=== PATIENT | female | born 1975 | race Caucasian/White ===

== ENCOUNTER → 2018-12-08 16:54 | Outpatient (CLI) | payer OTHER, SELFPAY ==
[2018-12-08 19:56] LABS: Alanine Aminotransferase 24 U/L (12-78); Albumin Level 3.8 gm/dL (3.4-5.0); Alkaline Phosphatase 94 U/L (46-116); Anion Gap 17.3 mEq/L (5-15); Aspartate Amino Transferase 6 U/L (15-37); Bilirubin,Total 0.1 mg/dL (0.2-1.0); Blood Urea Nitrogen 13 mg/dL (7-18); Calcium 8.7 mg/dL (8.5-10.1); Carbon Dioxide 20 mmol/L (21.0-32.0); Chloride 107 mmol/L (98-107); Creatinine,Serum 1.03 mg/dL (0.55-1.02); Estimated Glomerular Filt Rate 59 ml/min (>60); GFR (African American) 71 ML/MIN (>60); Globulin 3.8 gm/dl (1.3-3.2); Glucose 85 mg/dL (74-106); Potassium 4.3 mmoL/L (3.5-5.1); Sodium 140 mmol/L (136-145); Thyroid Stimulating Hormone 0.75 uIU/ml (0.358-3.740); Total Protein,Serum 7.6 gm/dL (6.4-8.2)
== END ==
PROVIDERS: Visit Provider Internal Medicine Adolescent Medicine
DX: E03.9 Hypothyroidism, unspecified (principal)
CPT/HCPCS: 36415; 80053; 84443

== ENCOUNTER → 2018-12-30 15:48 | Outpatient (CLI) | payer OTHER, SELFPAY ==
--- NOTE | 2018-12-30 15:54 | XR_ITS ---
XR hip LT 2-3V w/pelvis HISTORY: ITS.REASON: CELLULITIS,LEFT HIP PAIN,CUTANEOUS ABCESS OF BUTTOCK ORDERING PHYSICIAN: Soha Hernandez PATIENT AGE: 43 years COMPARISON: None FINDINGS: No fracture or dislocation is evident. There is a small area of heterogeneous decreased density along the left hip lateral to the greater trochanter and may be due to the area of abscess within the soft tissues. No bony erosive changes evident at this region. There are mild osteoarthritic changes of the hips and there is sclerosis in the supra-acetabular region on both sides which may be due to bone islands. Metallic density noted over the perineum consistent with body piercing artifact. IMPRESSION: Mottled gas density overlying the soft tissues of the left hip consistent with an abscess/gas-forming infection versus an area of ulceration. CT with contrast may be of further value.
== END ==
PROVIDERS: PCP Internal Medicine Adolescent Medicine; Visit Provider Nurse Practitioner Family
DX: L03.317 Cellulitis of buttock (principal); L02.31 Cutaneous abscess of buttock; M25.552 Pain in left hip
CPT/HCPCS: 73502

== ENCOUNTER → 2019-01-03 15:05 | Outpatient (CLI) | payer OTHER, SELFPAY ==
--- NOTE | 2019-01-03 15:09 | CT_ITS ---
CT pelvis wo con HISTORY: Left hip abscess pain extending to the hip ITS.REASON: CELLULITIS OF LT. HIP ORDERING PHYSICIAN: Hayden Waldron MD PATIENT AGE: 43 years COMPARISON: 12/30/2018 left hip radiograph Previous CT abdomen and pelvis September 2014 Technique: No IV contrast utilized. Helical CT scanning performed through the pelvis with axial, coronal and sagittal reconstruction performed. Additional 3-D volume rendering reconstruction. All CT scans at the facility use one or more dose reduction, viz: automated exposure control, ma/kV adjustment per patient size (including targeted exams where dose is matched to indication, i.e. head), or iterative reconstruction technique. FINDINGS: Soft tissues. There is a focal skin defect which extends into the subcutaneous tissues. It measures 15 mm deep, 15 mm wide and is located at the lateral aspect of the left buttocks...- Posterior lateral to the left hip.. This appears to be well contained focus with only some scant inflammation surrounding this ulcer or defect. No fluid is seen here. The findings are compatible with a healing abscess. There is a generous vein which is seen tracking from along this resolving abscess or defect at towards the gluteus muscle. Likely reflecting the more increased flow however there is no associated deep fluid collections or other findings at the left gluteus muscle. Left gluteus muscle appears normal on this noncontrast CT Left hip Nearly 8 cm deep to this skin defect/ulcer the LEFT HIP itself appears intact and normal: . no joint effusion nor significant joint findings at the left hip on this CT survey. The left femoral head & acetabulum appear satisfactory. The femoral head is a normal density. The trochanteric region and femoral neck unremarkable bilaterally. Bony pelvis The previous CT from 2013 showed a sclerotic bone islands along the inner aspect of the left iliac bone. These are again seen and appear stable if not recommend enlarged x 1 mm. Appear to be benign. A similar sclerotic focal bone island is seen at the medial aspect of the right iliac bone towards acetabulum.-No significant change since prior 2014 study here either. . Soft tissues the pelvis, the bladder appears fairly empty and satisfactory. Numerous phleboliths are evident. The right ovary is identified measuring up to 3.2 cm and likely containing a least 2 cm cyst. Large cyst is seen on a previous 2014 study. It is since regressed.. Generous, prominent stool is seen at the right colon, flexure and transverse colon. Minimal stool at the left colon. . IMPRESSION:...... 1. A 1.5 cm skin & subcutaneous defect is seen at the lateral left buttock. Only minimal Scant inflammation surrounding this area persists. . No significant focal fluid collections here or deep to this area. .. Findings consistent with resolving small area of likely drained abscess with no associated findings deep to this area... 2. The subcutaneous fat deep to this skin/soft tissue defect area, otherwise appear appears normal. The left Left gluteus muscle deep to this area appears satisfactory/normal. Left hip , as well as right hip appear satisfactory/. Osseous pelvis is unchanged since 2014 study, no significant findings again noting benign bone islands at medial aspect of the iliac bone bilaterally 3. Incidental observation: .... Prominent grade 1 spondylolisthesis of L5 on S1,. Bilateral Pars defects at L5 along with prominent degenerative facet changes L5/S1. ... 2 x 2.3 cm right ovarian cyst ... Increased/Prominent stool right colon- transverse colon noted .
== END ==
PROVIDERS: PCP Internal Medicine Adolescent Medicine; Visit Provider Internal Medicine Adolescent Medicine
DX: L03.116 Cellulitis of left lower limb (principal)
CPT/HCPCS: 72192

== ENCOUNTER → 2019-10-11 12:30 | Outpatient (CLI) | payer SELFPAY ==
[2019-10-11 13:33] LABS: Basophils # 0.1 K/mm3 (0-0.2); Basophils % 0.6 % (0.1-2.0); Eosinophils # 0.4 K/mm3 (0.0-0.4); Eosinophils % 2.8 % (0.1-12.0); Hematocrit 38.8 % (37.0-47.0); Hemoglobin 11.8 g/dL (12.2-16.2); Lymphocytes # 2.5 K/mm3 (0.7-4.5); Lymphocytes % 18.7 % (10-50); Mean Corpuscular HGB Conc 30.5 g/dL (31.8-35.4); Mean Corpuscular Hemoglobin 28.3 pg (27.0-31.2); Mean Corpuscular Volume 92.8 fl (81-99); Mean Platelet Volume 7.1 fl (7.4-10.4); Monocytes # 0.7 K/mm3 (0.1-1.0); Monocytes % 5.1 % (1.7-9.3); Neutrophils # 9.9 K/mm3 (1.8-7.8); Neutrophils % 72.8 % (37.0-80.0); Platelet Count 313 K/mm3 (142-424); Red Blood Count 4.18 M/mm3 (4.20-5.40); Red Cell Distribution Width 14.1 % (11.5-17.5); White Blood Count 13.6 K/mm3 (4.8-10.8)
[2019-10-11 14:19] LABS: Alanine Aminotransferase 14 U/L (12-78); Albumin Level 3.1 gm/dL (3.4-5.0); Alkaline Phosphatase 86 U/L (46-116); Anion Gap 13.4 mEq/L (5-15); Aspartate Amino Transferase 7 U/L (15-37); Blood Urea Nitrogen 14 mg/dL (7-18); Calcium 8.5 mg/dL (8.5-10.1); Carbon Dioxide 25 mmol/L (21.0-32.0); Chloride 107 mmol/L (98-107); Creatinine,Serum 0.94 mg/dL (0.55-1.02); Estimated Glomerular Filt Rate 66 ml/min (>60); GFR (African American) 79 ML/MIN (>60); Globulin 3.1 gm/dl (1.3-3.2); Glucose 82 mg/dL (74-106); Potassium 4.4 mmoL/L (3.5-5.1); Sodium 141 mmol/L (136-145); Thyroid Stimulating Hormone 0.98 uIU/ml (0.358-3.740); Total Protein,Serum 6.2 gm/dL (6.4-8.2)
[2019-10-11 15:10] LABS: Bilirubin,Total < 0.0 mg/dL (0.2-1.0)
== END ==
PROVIDERS: Visit Provider Internal Medicine Adolescent Medicine
DX: R63.5 Abnormal weight gain (principal)
CPT/HCPCS: 36415; 80053; 84443; 85025

== ENCOUNTER → 2019-10-28 09:16 | Outpatient (CLI) | payer SELFPAY ==
--- NOTE | 2019-10-28 09:20 | US_ITS ---
PROCEDURE: US ABDOMEN LIMITED CLINICAL INDICATION: ABD DISCOMFORT COMPARISON: RUQ US RUQ-(ABD LTD)1ORGAN/QUAD/FU from 10/09/2014 FINDINGS: PANCREAS: There is poor delineation of the pancreatic tail. CT is recommended to better evaluate pancreatic tail if felt to be clinically indicated. No obvious mass or abnormal fluid collection. No ductal dilatation LIVER: There is homogeneous echotexture without a discrete lesion or biliary ductal dilatation. RIGHT KIDNEY: Unremarkable. Normal size and echogenicity. No hydronephrosis GALLBLADDER: No gallstones, gallbladder wall thickening, pericholecystic fluid, or biliary dilatation. A trace amount of sludge versus reverberation artifact is present IMPRESSION: No gallstones or ancillary findings of acute cholecystitis. Possible trace amount of sludge. Dictated by: Dagoberto Campa 10/28/2019 10:36 Electronically signed by Dagoberto Campa in [facility] 10/28/2019 10:36
== END ==
PROVIDERS: PCP Internal Medicine Adolescent Medicine; Visit Provider Internal Medicine Adolescent Medicine
DX: R10.9 Unspecified abdominal pain (principal); R14.0 Abdominal distension (gaseous)
CPT/HCPCS: 76705

== ENCOUNTER → 2019-12-13 12:52 | Outpatient (CLI) | payer OTHER, SELFPAY ==
--- NOTE | 2019-12-13 12:56 | XR_ITS ---
PROCEDURE: XR CHEST 2V CLINICAL HISTORY: SOB COMPARISON: CXR1VP XR chest portable from 09/20/2018 XR CHEST 2V from 12/09/2019 FINDINGS: The cardiomediastinal silhouette and pulmonary vascularity are within normal limits. The lungs are clear without infiltrates, suspicious nodules, or pleural effusions. There is hyperinflation. No lobar consolidation or collapse is evident. Lungs are clear of acute infiltrate. Bilateral nipple ring artifact. No acute bony findings. IMPRESSION: No change with no acute finding Dictated by: Sadiq Holt MD 12/13/2019 13:33 Electronically signed by Sadiq Holt MD in [facility] 12/13/2019 13:33
[2019-12-13 13:27] LABS: Adenovirus,PCR Not Detected (NotDetected); Bordetella Pertussis Not Detected (NotDetected); Chlamydophila Pneumoniae, PCR Not Detected (NotDetected); Coronavirus 229E Not Detected (NotDetected); Coronavirus NL63 Not Detected (NotDetected); Coronavirus OC43 Not Detected (NotDetected); Coronovirus HKU1,PCR Not Detected (NotDetected); Human Metapneumovirus Not Detected (NotDetected); Influenza A, PCR Not Detected (NotDetected); Influenza AH1, 2009 Not Detected (NotDetected); Influenza AH1, PCR Not Detected (NotDetected); Influenza AH3,PCR Not Detected (NotDetected); Influenza B, PCR Not Detected (NotDetected); Mycoplasma Pneumoniae, PCR Not Detected (NotDetected); Parainfluenza 1, PCR Not Detected (NotDetected); Parainfluenza 2, PCR Not Detected (NotDetected); Parainfluenza 3, PCR Not Detected (NotDetected); Parainfluenza 4, PCR Not Detected (NotDetected); Respiratory Syncytial Virus Not Detected (NotDetected); Rhinovirus/Enterovirus Not Detected (NotDetected)
== END ==
PROVIDERS: PCP Internal Medicine Adolescent Medicine; Visit Provider Internal Medicine Adolescent Medicine
DX: R06.02 Shortness of breath (principal); J45.909 Unspecified asthma, uncomplicated
CPT/HCPCS: 71046; 87486; 87581; 87633; 87798

== ENCOUNTER → 2019-12-23 10:32 | Observation (INO) ==
[2019-12-22 16:49] LABS: Basophils # 0.1 K/mm3 (0-0.2); Basophils % 0.5 % (0.1-2.0); Eosinophils # 0.5 K/mm3 (0.0-0.4); Eosinophils % 2.4 % (0.1-12.0); Hemoglobin 12.3 g/dL (12.2-16.2); Lymphocytes % 21.2 % (10-50); Mean Corpuscular HGB Conc 31.5 g/dL (31.8-35.4); Mean Corpuscular Volume 89.1 fl (81-99); Mean Platelet Volume 7.4 fl (7.4-10.4); Monocytes # 0.7 K/mm3 (0.1-1.0); Monocytes % 3.9 % (1.7-9.3); Neutrophils # 13.5 K/mm3 (1.8-7.8); Platelet Count 343 K/mm3 (142-424); Red Blood Count 4.38 M/mm3 (4.20-5.40); Red Cell Distribution Width 13.6 % (11.5-17.5); White Blood Count 18.7 K/mm3 (4.8-10.8)
[2019-12-22 16:55] LABS: Chloride 106 mmol/L (98-107); Sodium 139 mmol/L (136-145)
[2019-12-22 16:57] LABS: Alanine Aminotransferase 19 U/L (12-78); Alkaline Phosphatase 68 U/L (38-126); Anion Gap 10.6 mEq/L (5-15); Aspartate Amino Transferase 18 U/L (14-36); Blood Urea Nitrogen 19 mg/dl (7-17); Carbon Dioxide 26 mmol/L (22.0-30.0)
[2019-12-22 16:58] LABS: Albumin Level 3.6 g/dl (3.5-5.0); Albumin/Globulin Ratio 1.3 (1.1-1.8); Calcium 9.1 mg/dl (8.4-10.2); Globulin 2.8 g/dL (1.3-3.2); Glucose 101 mg/dl (74-100); Total Protein,Serum 6.4 g/dl (6.3-8.2)
[2019-12-22 16:59] LABS: Bilirubin,Total < 0.1 mg/dl (0.2-1.3)
[2019-12-22 17:21] LABS: Eosinophils % 5 % (0-3); Lymphocytes % 26 % (10-50); Monocytes % 3 % (2-9); Neutrophils % 66 % (42-76); RBC Morphology Normal; Total Cells Counted 100
--- NOTE | 2019-12-22 18:17 | History & Physical Report ---
*Admission Date: 12/22/19 *Chief complaint: SOA *History of present illness: 44 yo F who presented to the ER 2 weeks ago with initial onset of Sx of cough, SOA, horase voice. No Fevers, N/V/D, Syncope, body aches. Has been seen in our office 9 days ago with repeat visit to ED last weekend. During visit to the office today she continues to have shortness of breath, wheeze, tachycardia and tachypnea. Given failure of outpatient therapy for suspected asthma exacerbation, will pursue admission for observation and more aggressive inpatient treatment. Will monitor overnight with nebulizers. Pursue imaging. And pursue labs. At this time she continues to deny fever, chest pain, syncope. Does complain of some pain in her back from coughing. Reports at home she has been using Albuterol Nebs and inalers with no benefit. Gets short of breath with exertion and unable to participate in activities, nece ssitating help with activities as simple as dressing. Cough not productive. staying hydrated. Wt down 4 lbs in the past month. Does continue to smoke occasionally, a few cigarettes a day. [facility] History I have reviewed the patient's past medical history: Yes Medical History: Reports:: Anxiety, Atrial Fibrillation, Depression, Migraine Denies:: Cancer, Diabetes Mellitus Type 1, Diabetes Mellitus Type 2, MRSA, Seizures *Have you ever received a pneumonia vaccine?: Yes *Have you received a flu vaccine this season?: Yes Other Medical History: Reports: Hypothyroidism. Denies: Blood Transfusion Reaction Other Surgeries: Yes: No Previous Surgery, , Hysterectomy-Partial, Other Amputation: No Fractures: No - *Social History Educational Level: Completed High School Smoking Status: Current every day smoker Tobacco Type: cigarettes # Packs/Day (cigarettes): 1 Alcohol Intake: never Substance Use Type: denies use *Occupational Status:: employed Housing: house Household Members: children *Travel in the last 8 weeks: None - Psychiatric History Pschychiatric History:: Reports:: Anxiety, Depression Family Hx:: Asthma, Cancer, Diabetes, Heart Attack, Hyperlipidemia, Hypertension Review of Systems - Review of Systems Review of systems:: pertinent systems reviewed and negative unless documented below (14 point review of systems performed, pertinent positives and negatives as per HPI) Meds Home Medications Medication Instructions Recorded Confirmed Type topiramate 100 mg tablet 100 mg PO BID 11/10/17 12/22/19 History propranolol 20 mg tablet 20 mg PO BID 01/04/18 12/22/19 History hydrOXYzine pamoate [Vistaril 25mg 25 mg PO NEEDED PRN 09/15/18 12/22/19 History capsule] amitriptyline 100 mg tablet 100 mg PO DAILY 08/12/19 12/22/19 History Promethazine/Dextromethorphan 5 ml PO Q6HP PRN #240 syrup 12/17/19 12/22/19 Rx [Promethazine-Dm Syrup] Amoxicillin/Potassium Clav 1 tab PO Q12H 12/22/19 12/22/19 History [Augmentin 875-125 Tablet] Azithromycin [Zithromax 250mg 250 mg PO DAILY 12/22/19 12/22/19 History tab] Fluoxetine HCl 40 mg PO DAILY 12/22/19 12/22/19 History Fluoxetine HCl [Prozac] 40 mg PO DAILY 12/22/19 12/22/19 History Levothyroxine Sodium 50 mcg PO DAILY 12/22/19 12/22/19 History [Levothyroxine 50mcg (0.05mg) Tab] Allergies Allergy/AdvReac Type Severity Reaction Status Date / Time codeine [CODEINE] Allergy Mild Verified 12/09/19 22:57 latex Allergy Verified 12/09/19 22:57 sumatriptan [From Imitrex] Allergy body feels Verified 12/09/19 22:57 like its on fire Exam Vital signs and Labs for Last 24 Hours: Temp Pulse Resp BP Pulse Ox 97.5 F L 75 22 116/73 96 12/22/19 16:16 12/22/19 17:54 12/22/19 16:16 12/22/19 16:16 12/22/19 16:16 Laboratory Results - last 24 hr 12/22/19 16:35: WBC 18.7 H, RBC 4.38, Hgb 12.3, Hct 39.0, MCV 89.1, MCH 28.1, MCHC 31.5 L, RDW 13.6, Plt Count 343, MPV 7.4, Neut % (Auto) 72.0, Lymph % (Auto) 21.2, [place] % (Auto) 3.9, Eos % (Auto) 2.4, Baso % (Auto) 0.5, Neut # (Auto) 13.5 H, Lymph # (Auto) 4.0, [place] # (Auto) 0.7, Eos # (Auto) 0.5 H, Baso # (Auto) 0.1, Total Counted 100, Neutrophils % (Manual) 66, Lymphocytes % (Manual) 26, Monocytes % (Manual) 3, Eosinophils % (Manual) 5 H, Platelet Estimate Normal, RBC Morphology Normal 12/22/19 16:35: Sodium 139, Potassium 3.6, Chloride 106, Carbon Dioxide 26, Anion Gap 10.6, BUN 19 H, Creatinine 1.00, Estimated Creat Clear 103, Estimated GFR 61, Est GFR ( Amer) 74, Glucose 101 H, Calcium 9.1, Magnesium 1.7, Total Bilirubin < 0.1 L, AST 18, ALT 19, Alkaline Phosphatase 68, Total Protein 6.4, Albumin 3.6, Globulin 2.8, Albumin/Globulin Ratio 1.3 I & O for Last 24 hours: Intake & Output 12/19/19 12/20/19 12/21/19 12/22/19 23:59 23:59 23:59 23:59 Intake Total 600 / 600 Balance 600 / 600 Weight 88.932 kg - *Routine HEENT Exam Head: Present: normocephalic Eye: Present: EOMI, PERRL ENT: Present: mucous membranes moist - *Routine Neck Exam Present: supple. Absent: lymphadenopathy - *Routine Respiratory Exam Present: accessory muscle use, prolonged expiratory phase, respiratory distress (Mild), wheezes. Absent: rhonchi, crackles - *Routine Cardiovascular Exam Present: Normal S1, Normal S2, tachycardia. Absent: murmur - *Routine Abdominal Exam Present: soft, normoactive bowel sounds. Absent: tenderness - *Routine Extremities Exam Absent: cyanosis, clubbing, edema - *Routine Skin Exam Present: warm. Absent: rash - *Routine Neurological Exam Present: alert, oriented X3 Assessment and Plan (1) Hypomagnesemia Current visit: Yes Status: Acute Category: Medical Code(s): E83.42 - Hypomagnesemia Replete as necessary. Repeat with morning labs (2) Migraines Current visit: Yes Status: Chronic Category: Medical Code(s): G43.909 - Migraine, unspecified, not intractable, without status migrainosus Continue home medications (3) Asthma exacerbation Current visit: Yes Status: Acute Qualifiers: Asthma severity: moderate Category: Medical Code(s): J45.901 - Unspecified asthma with (acute) exacerbation Tachypneic and tachycardic. Not hypoxic however. Patient not requiring supplemental oxygen however she has failed extensive outpatient treatment with nebulizers, inhalers, antibiotics, steroids. Will pursue more aggressive inpatient therapy. At this time we will also obtain CT to assess for any infectious etiology. Patient has had a comprehensive respiratory panel, novel coronavirus testing, chest x-ray, and labs with no clear etiology. - Nebulizer scheduled every 6, every 2 Xopenex for breakthrough dyspnea - IV steroids - Oxygen if needed for goal sats greater than 92% (4) Eosinophilia Current visit: Yes Status: Acute Category: Medical Code(s): D72.1 - Eosinophilia Suspect allergic on her labs. I have concern this is underlying her current condition. Initiating steroids and Singulair. Will monitor for improvement during admission. Anticipate prolonged taper over the next several weeks. (5) Class 1 obesity Current visit: Yes Status: Acute Category: Medical Code(s): E66.9 - Obesity, unspecified Complicates all aspects of her care (6) Tobacco use disorder Current visit: Yes Status: Chronic Category: Medical Code(s): F17.200 - Nicotine dependence, unspecified, uncomplicated Complicates her care. Have discussed extensively smoking cessation. Had discussion for greater than 5 minutes during exam today about impact smoking has on her current condition. Patient is pre-contemplative about cessation.
[2019-12-23 06:52] LABS: Basophils % 0.1 % (0.1-2.0); Eosinophils % 0.1 % (0.1-12.0); Hematocrit 43.4 % (37.0-47.0); Hemoglobin 13.5 g/dL (12.2-16.2); Lymphocytes # 1.2 K/mm3 (0.7-4.5); Lymphocytes % 6.6 % (10-50); Mean Corpuscular HGB Conc 31.1 g/dL (31.8-35.4); Mean Corpuscular Volume 90.7 fl (81-99); Mean Platelet Volume 6.9 fl (7.4-10.4); Monocytes # 0.2 K/mm3 (0.1-1.0); Monocytes % 1.2 % (1.7-9.3); Neutrophils # 16.8 K/mm3 (1.8-7.8); Platelet Count 359 K/mm3 (142-424); Red Blood Count 4.79 M/mm3 (4.20-5.40); Red Cell Distribution Width 13.5 % (11.5-17.5); White Blood Count 18.3 K/mm3 (4.8-10.8)
[2019-12-23 07:24] LABS: Anion Gap 13.5 mEq/L (5-15); Calcium 9.2 mg/dl (8.4-10.2)
--- NOTE | 2019-12-23 07:40 | Pharmacy Consult Notes ---
[facility] Pharmacy VTE Monitoring - Patient Demographics Admission date: 12/22/19 Report Date: 12/23/19 Time: 07:39 Allergies/Adverse Reactions: Patient Allergies codeine [CODEINE] Allergy (Mild, Verified 12/09/19 22:57) latex Allergy (Verified 12/09/19 22:57) sumatriptan [From Imitrex] Allergy (Verified 12/09/19 22:57) body feels like its on fire Height: 1.7 m Weight: 88.564 kg Patient Problems: Current Active Problems Hypomagnesemia (Acute) Migraines (Chronic) Asthma exacerbation (Acute) Eosinophilia (Acute) Class 1 obesity (Acute) Tobacco use disorder (Chronic) - VTE Risk Labs: VTE Related Lab Results Hgb 13.5 g/dL (12.2-16.2) 12/23/19 06:10 Hct 43.4 % (37.0-47.0) 12/23/19 06:10 Plt Count 359 K/mm3 (142-424) 12/23/19 06:10 BUN 13 mg/dl (7-17) D 12/23/19 06:10 Creatinine 0.80 mg/dl (0.52-1.04) 12/23/19 06:10 Estimated Creat Clear 128 mL/min (50-200) 12/23/19 06:10 VTE Score: 2 - Prophylaxis VTE Prophylaxis Ordered?: Yes Types of VTE Prophylaxis: TEDS Knee High Location of Applied Device: Bilateral Lower Extremeties - VTE Diagnosis Confirmed Treatment or plan recommended: Continue Current Treatment
--- NOTE | 2019-12-23 07:54 | Electrocardiograph Report ---
APPROVED REPORT Exam: Resting ECG HR:79 bpm ECG Measurements Heart Rate 79 AXES MA 154 P 34 QRSd 84 QRS 61 QT 394 T55 QTc 451 <Conclusion> Normal sinus rhythm Possible Left atrial enlargement Late R-wave progression Abnormal ECG Electronically signed by : Hayden Waldron, 12/23/2019 07:53:42
--- NOTE | 2019-12-23 08:33 | Discharge Summary ---
General - General Admission date:: 12/22/19 Discharge date: 12/23/19 HPI HPI: 44 yo F who presented to the ER 2 weeks ago with initial onset of Sx of cough, SOA, horase voice. No Fevers, N/V/D, Syncope, body aches. Has been seen in our office 9 days ago with repeat visit to ED last weekend. During visit to the office today she continues to have shortness of breath, wheeze, tachycardia and tachypnea. Given failure of outpatient therapy for suspected asthma exacerbation, will pursue admission for observation and more aggressive inpatient treatment. Will monitor overnight with nebulizers. Pursue imaging. And pursue labs. At this time she continues to deny fever, chest pain, syncope. Does complain of some pain in her back from coughing. Reports at home she has been using Albuterol Nebs and inalers with no benefit. Gets short of breath with exertion and unable to participate in activities, necessitating help with activities as simple as dressing. Cough not productive. staying hydrated. Wt down 4 lbs in the past month. Does continue to smoke occasionally, a few cigarettes a day. Hospital Course Hospital Course: 44-year-old female admitted for Sirs criteria and suspected asthma exacerbation. Monitored overnight with improvement in her vitals. Remains afebrile. Not requiring oxygen. Responding well to nebulizers with DuoNebs. Initiated on IV steroids. Imaging performed with unremarkable CT showing no findings of pneumonia or pulmonary infection. Suspect elevated white count is due to recurrent steroids and stress over the past 2 weeks. Interestingly on presentation her initial labs had an elevated eosinophil count. While specific etiology is unclear, differential diagnosis consists of allergy induced asthma, ABPA, eosinophilia, or prolonged symptoms from acute viral illness secondary to her continued tobacco use. As she is not requiring oxygen, remains afebrile, is hemodynamically stable, no justification to continue to keep her admitted. We will discharge her home on duo nebs, a prolonged steroid taper, medications to treat thrush and potential fungal secondary infections such as vaginal yeast infections, and recommend following up with ENT due to concern for upper airway etiology of wheeze on exam. Denies chest pain, nausea, vomiting, syncope. Shortness of breath somewhat improved with inhalers/nebulizers. Given sample of Stiolto at discharge to util ize daily. Close follow-up next week in clinic. Medically stable for discharge home with further management in the outpatient setting Objective Vital signs: Temp Pulse Resp BP Pulse Ox 98.1 F 81 20 133/75 98 12/23/19 07:40 12/23/19 07:40 12/23/19 07:40 12/23/19 07:40 12/23/19 07:40 Narrative: General: No acute distress on room air. - *Routine HEENT Exam Head: Present: normocephalic Eye: Present: EOMI, PERRL ENT: Present: mucous membranes moist - *Routine Neck Exam Present: supple. Absent: lymphadenopathy - *Routine Respiratory Exam Present: Improvement in respiratory symptoms, no tripoding or accessory muscle use, minimal expiratory wheeze in the bases bilaterally and posterior lung mustafa, transmitted upper airway wheeze best heard at cheeks. Absent: rhonchi, crackles - *Routine Cardiovascular Exam Present: Normal S1, Normal S2, regular rate and rhythm absent: murmur - *Routine Abdominal Exam Present: soft, normoactive bowel sounds. Absent: tenderness - *Routine Extremities Exam Absent: cyanosis, clubbing, edema - *Routine Skin Exam Present: warm. Absent: rash - *Routine Neurological Exam Present: alert, oriented X3 Results Labs on day of discharge: Labs from last 24 hours 12/23/19 12/23/19 12/22/19 06:10 06:10 16:35 WBC 18.3 H RBC 4.79 Hgb 13.5 Hct 43.4 MCV 90.7 MCH 28.2 MCHC 31.1 L RDW 13.5 Plt Count 359 MPV 6.9 L Neut % (Auto) 92.0 H Lymph % (Auto) 6.6 L [place] % (Auto) 1.2 L Eos % (Auto) 0.1 Baso % (Auto) 0.1 Neut # (Auto) 16.8 H Lymph # (Auto) 1.2 [place] # (Auto) 0.2 Eos # (Auto) 0.0 Baso # (Auto) 0.0 Total Counted Neutrophils % (Manual) Lymphocytes % (Manual) Monocytes % (Manual) Eosinophils % (Manual) Platelet Estimate RBC Morphology Sodium 138 139 Potassium 4.5 D 3.6 Chloride 105 106 Carbon Dioxide 24 26 Anion Gap 13.5 10.6 BUN 13 D 19 H Creatinine 0.80 1.00 Estimated Creat Clear 128 103 Estimated GFR 79 61 Est GFR ( Amer) 95 D 74 Glucose 158 H D 101 H Calcium 9.2 9.1 Magnesium 2.2 D 1.7 Total Bilirubin < 0.1 L AST 18 ALT 19 Alkaline Phosphatase 68 Total Protein 6.4 Albumin 3.6 Globulin 2.8 Albumin/Globulin Ratio 1.3 12/22/19 16:35 WBC 18.7 H RBC 4.38 Hgb 12.3 Hct 39.0 MCV 89.1 MCH 28.1 MCHC 31.5 L RDW 13.6 Plt Count 343 MPV 7.4 Neut % (Auto) 72.0 Lymph % (Auto) 21.2 [place] % (Auto) 3.9 Eos % (Auto) 2.4 Baso % (Auto) 0.5 Neut # (Auto) 13.5 H Lymph # (Auto) 4.0 [place] # (Auto) 0.7 Eos # (Auto) 0.5 H Baso # (Auto) 0.1 Total Counted 100 Neutrophils % (Manual) 66 Lymphocytes % (Manual) 26 Monocytes % (Manual) 3 Eosinophils % (Manual) 5 H Platelet Estimate Normal RBC Morphology Normal Sodium Potassium Chloride Carbon Dioxide Anion Gap BUN Creatinine Estimated Creat Clear Estimated GFR Est GFR ( Amer) Glucose Calcium Magnesium Total Bilirubin AST ALT Alkaline Phosphatase Total Protein Albumin Globulin Albumin/Globulin Ratio DS: Diagnosis - Discharge Diagnosis (1) Hypomagnesemia Status: Resolved (2) Migraines Status: Chronic (3) Asthma exacerbation Status: Acute (4) Eosinophilia Status: Acute (5) Class 1 obesity Status: Chronic (6) Tobacco use disorder Status: Chronic (7) SIRS (systemic inflammatory response syndrome) Status: Acute Problem details: Suspected due to asthma exacerbation. Patient had tachycardia, tachypnea, elevated white count. No fever or focal findings of infection Discharge Plan - Patient Discharge Instructions ACTIVITY: Ambulate as tolerated DIET: continue same diet Patient Instructions: Asthma -- Adult, Reasons to Quit Smoking, How to Quit Smoking - Follow up Plan Follow up with: Leonardo García MD [Primary Care Provider] - Juan Carlos Beltran MD [Staff Physician] - (please scehdule Thursday for concern for laryngospasm/upper airway etiology of wheeze) Disposition: Home, Self-Group Home Medications: Home Medications Medication Instructions Recorded Confirmed Type topiramate 100 mg tablet 100 mg PO BID 11/10/17 12/22/19 History propranolol 20 mg tablet 20 mg PO BID 01/04/18 12/22/19 History hydrOXYzine pamoate [Vistaril 25mg 25 mg PO NEEDED PRN 09/15/18 12/22/19 History capsule] amitriptyline 100 mg tablet 100 mg PO DAILY 08/12/19 12/22/19 History Fluoxetine HCl 40 mg PO DAILY 12/22/19 12/22/19 History Levothyroxine Sodium 50 mcg PO DAILY 12/22/19 12/22/19 History [Levothyroxine 50mcg (0.05mg) Tab] Fluconazole [Diflucan 150mg tab] 150 mg PO WEEKLY 28 Days #4 tab 12/23/19 Rx Ipratropium/Albuterol Sulfate 3 ml IH Q6HP PRN 30 Days #60 12/23/19 Rx [Duoneb 3mL neb] ampul.neb Montelukast Sodium [Singulair 10mg 10 mg PO PM 30 Days #30 tab 12/23/19 Rx tablet] Nystatin [Nystatin Susp 500,000 5 ml PO TID 7 Days #100 udc 12/23/19 Rx Units/5mL Udc] predniSONE [Deltasone 10mg tablet] 10 mg PO DIRECTED 31 Days #82 12/23/19 Rx tab Prescriptions/Medication Reconciliation: New Ipratropium/Albuterol Sulfate [Duoneb 3mL neb] 3 ml IH Q6HP PRN 30 Days #60 ampul.neb PRN Reason: Dyspnea Nystatin [Nystatin Susp 500,000 Units/5mL Udc] 5 ml PO TID 7 Days #100 udc Montelukast Sodium [Singulair 10mg tablet] 10 mg PO PM 30 Days #30 tab predniSONE [Deltasone 10mg tablet] 10 mg PO DIRECTED 31 Days #82 tab Fluconazole [Diflucan 150mg tab] 150 mg PO WEEKLY 28 Days #4 tab Continued topiramate 100 mg tablet 100 mg PO BID propranolol 20 mg tablet 20 mg PO BID amitriptyline 100 mg tablet 100 mg PO DAILY hydrOXYzine pamoate [Vistaril 25mg capsule] 25 mg PO NEEDED PRN PRN Reason: Anxiety Levothyroxine Sodium [Levothyroxine 50mcg (0.05mg) Tab] 50 mcg PO DAILY Fluoxetine HCl 40 mg PO DAILY Discontinued Azithromycin [Zithromax 250mg tab] 250 mg PO DIRECTED Albuterol Sulfate [Albuterol 0.083% 2.5mg/3mL neb] 2.5 mg IH Q6H Promethazine/Dextromethorphan [Promethazine-Dm Syrup] 5 ml PO Q6HP PRN #240 syrup PRN Reason: Cough Amoxicillin/Potassium Clav [Augmentin 875-125 Tablet] 1 tab PO Q12H - Problem Reconciliation Problems Reviewed?: Yes
[2019-12-23 10:59] LABS: Lymphocytes % 6 % (10-50); Monocytes % 2 % (2-9); Neutrophils % 92 % (42-76); Total Cells Counted 100
[2019-12-23 11:00] LABS: Hypochromasia 1+
== END | disposition home or self-care (01) ==
LOC: 2ND
PROVIDERS: ADMIT Internal Medicine Adolescent Medicine; ATTEND Internal Medicine Adolescent Medicine
CPT/HCPCS: 36415; 71270; 80048; 80053; 83735; 85007; 85025; 93005; 94640; 94761; G0378; Q9967

== ENCOUNTER 2020-01-14 13:54 | Emergency (ER) | payer MEDICAID, SELFPAY ==
[2020-01-14 13:54] VITALS: BP 139/84; PULSE 91; RESP 26; TEMP 37.3; O2SAT 98; BMI 31.3
--- NOTE | 2020-01-14 14:15 | XR_ITS ---
PROCEDURE: XR CHEST 2V CLINICAL HISTORY: sob and wheezing for 1 month , Patient has been tested for coronavirus 4 times all negative COMPARISON: XR CHEST 2V from 12/09/2019 XR CHEST 2V from 12/13/2019 XR CHEST 2V from 12/17/2019 CT ANGIO CHEST from 12/31/2019 FINDINGS: The cardiomediastinal silhouette and pulmonary vascularity are within normal limits. The lungs are clear without infiltrates, suspicious nodules, or pleural effusions. No acute bony abnormalities. IMPRESSION: No acute findings. Dictated by: Dr. Filemon Duarte MD 01/14/2020 14:[address] Filemon Duarte MD in [facility] 01/14/2020 14:42
[2020-01-14 14:56] LABS: Basophils # 0.1 K/mm3 (0-0.2); Basophils % 0.9 % (0.1-2.0); Eosinophils # 0.4 K/mm3 (0.0-0.4); Eosinophils % 3.5 % (0.1-12.0); Hematocrit 38.6 % (37.0-47.0); Lymphocytes # 2.6 K/mm3 (0.7-4.5); Lymphocytes % 26.2 % (10-50); Mean Corpuscular Hemoglobin 27.6 pg (27.0-31.2); Mean Corpuscular Volume 88.9 fl (81-99); Monocytes # 0.5 K/mm3 (0.1-1.0); Monocytes % 5.1 % (1.7-9.3); Neutrophils # 6.5 K/mm3 (1.8-7.8); Neutrophils % 64.4 % (37.0-80.0); Platelet Count 320 K/mm3 (142-424); Red Blood Count 4.34 M/mm3 (4.20-5.40); White Blood Count 10.1 K/mm3 (4.8-10.8)
[2020-01-14 15:03] LABS: Alanine Aminotransferase 35 U/L (12-78); Albumin Level 4.1 g/dl (3.5-5.0); Albumin/Globulin Ratio 1.3 (1.1-1.8); Alkaline Phosphatase 77 U/L (38-126); Anion Gap 9.1 mEq/L (5-15); Aspartate Amino Transferase 28 U/L (14-36); Bilirubin,Total 0.2 mg/dl (0.2-1.3); Blood Urea Nitrogen 12 mg/dl (7-17); Calcium 9.1 mg/dl (8.4-10.2); Carbon Dioxide 25 mmol/L (22.0-30.0); Chloride 106 mmol/L (98-107); Creatinine Clearance Estimated 105 mL/min (50-200); Estimated Glomerular Filt Rate 61 ml/min (>60); GFR (African American) 74 ML/MIN (>60); Globulin 3.2 g/dL (1.3-3.2); Glucose 90 mg/dl (74-100); Potassium 4.1 mmoL/L (3.5-5.1); Sodium 136 mmol/L (136-145); Total Protein,Serum 7.3 g/dl (6.3-8.2)
[2020-01-14 15:17] LABS: Troponin I < 0.01 ng/ml (0.00-0.034)
--- NOTE | 2020-01-14 15:43 | HMH.EDSOB ---
ED Disposition Clinical Impression: Viral bronchitis Disposition: Home, Self-Care Condition on Discharge: Good Instructions: DI for Chronic Bronchitis Prescriptions: Azithromycin 250 mg PO DAILY 5 Days #6 tab Transmission Status: Pending to [facility] Referrals: Leonardo García MD [Primary Care Provider] - - Critical Care Critical Care Time: No Attestation: On 01/14/20, the high probability of a clinically significant, sudden or life threatening deterioration of the following system(s) required my full and direct attention, intervention and personal management. The time I documented below is in addition to time spent performing reported procedures but includes the following listed in this critical care notation. Medical Decision Making - Medical Records Medical records reviewed: Yes: I reviewed the patient's medical records. - Marcelo Inquiry Pt receiving controlled substance: No Vital Signs: 01/14/20 13:54 Temperature 99.2 F Temperature Source Oral Pulse Rate [Left Radial] 91 H Respiratory Rate 26 H Blood Pressure [Right Arm] 139/84 Blood Pressure Mean [Right Arm] 102 Blood Pressure Position [Right Arm] Sitting 02 Sat by Pulse Oximetry 98 Oxygen Delivery Method Room Air - Lab Data Lab results reviewed: Yes: I reviewed the patient's lab results. Lab Results 01/14/20 14:45: WBC 10.1, RBC 4.34, Hgb 12.0 L, Hct 38.6, MCV 88.9, MCH 27.6, MCHC 31.0 L, RDW 14.0, Plt Count 320, MPV 7.0 L, Neut % (Auto) 64.4, Lymph % (Auto) 26.2, Cobb % (Auto) 5.1, Eos % (Auto) 3.5, Baso % (Auto) 0.9, Neut # (Auto) 6.5, Lymph # (Auto) 2.6, Cobb # (Auto) 0.5, Eos # (Auto) 0.4, Baso # (Auto) 0.1 01/14/20 14:45: Sodium 136, Potassium 4.1, Chloride 106, Carbon Dioxide 25, Anion Gap 9.1, BUN 12, Creatinine 1.00, Estimated Creat Clear 105, Estimated GFR 61, Est GFR ( Amer) 74, Glucose 90, Calcium 9.1, Total Bilirubin 0.2, AST 28, ALT 35, Alkaline Phosphatase 77, Troponin I < 0.01, Total Protein 7.3, Albumin 4.1, Globulin 3.2, Albumin/Globulin Ratio 1.3 Result diagrams: 01/14/20 14:45 01/14/20 14:45 Orders (Tests/Meds): ED MEDICATIONS Discontinued Medications Generic Name Dose Route Start Last Admin Trade Name Jude PRN Reason Stop Dose Admin Dexamethasone Sodium Phosphate 8 mg 01/14/20 14:50 01/14/20 15:10 Decadron 4mg/Ml 1ml Vial IV 01/14/20 14:51 8 mg ONCE ONE Administration Azithromycin 500 mg/ Sodium 250 mls @ 250 mls/hr 01/14/20 14:50 01/14/20 15:10 Chloride IV 01/14/20 14:51 250 mls/hr Q24H ONE Administration Protocol ORDERS Category Date Time Status Troponin I Q3H Lab 01/14/20 17:15 Ordered Troponin I Q3H Lab 01/14/20 20:15 Ordered - Radiology Data #1 Image(s): Chest Preliminary Findings: Normal/NAD Resp/SOB HPI - General Chief Complaint: Shortness of Breath/Dyspnea Stated Complaint: shortness of breath Time Seen by Provider: 01/14/20 15:57 Mode of Arrival: Ambulatory Limitations: No Limitations Description of Symptoms (Recalled from ER Triage Doc. by RN): to ed per pvt car with c/o sob, cough since December, and pain between shoulders. pt seen several times in ed for same. pt states out of her inhalers x 3 days. pt states finished course of steroids yesterday. pt states she has been tested for covid19 x 4 with negative results - History of Present Illness 44-year-old female presents the ED with persistent cough and shortness of breath. Patient does have COPD and normally has a cough but she has been coughing more frequently over the last 3 to 4 weeks. She was seen by her primary about 2 and half weeks ago and was tested for coronavirus and was negative and then she did present to the [facility] and they tested her again which was negative. I did see her about 8 days ago and diagnosed her with viral bronchitis and subsequently put her on inhaled albuterol. However she is failed to improve. She denies any overt shortness of breath
[2020-01-14 16:34] VITALS: BP 135/74; PULSE 78; RESP 26; TEMP 36.6; O2SAT 97
== END 2020-01-14 16:35 | disposition home or self-care (01) ==
PROVIDERS: Emergency Provider Family Medicine; PCP Internal Medicine Adolescent Medicine
DX: J40 Bronchitis, not specified as acute or chronic (principal); B34.9 Viral infection, unspecified; Z79.899 Other long term (current) drug therapy; Z88.8 Allergy status to other drugs, medicaments and biological substances; Z88.6 Allergy status to analgesic agent; Z91.040 Latex allergy status; F41.9 Anxiety disorder, unspecified; I48.91 Unspecified atrial fibrillation; F32.9 Major depressive disorder, single episode, unspecified; G43.909 Migraine, unspecified, not intractable, without status migrainosus; E03.9 Hypothyroidism, unspecified; Z72.0 Tobacco use
CPT/HCPCS: 71046; 80053; 84484; 85025; 96365; 96375; 99282; J0456

== ENCOUNTER 2020-01-30 16:09 | Emergency (ER) | payer MEDICAID, SELFPAY ==
[2020-01-30 16:31] VITALS: BP 134/84; PULSE 94; RESP 26; TEMP 36.7; O2SAT 99; BMI 31.3
--- NOTE | 2020-01-30 16:35 | HMH.EDUTC ---
[facility] [place] Disposition Clinical Impression: Oral ángela Asthma exacerbation Qualifiers: Asthma severity: unspecified severity Asthma persistence: unspecified Qualified Code(s): J45.901 - Unspecified asthma with (acute) exacerbation Disposition: Home, Self-Care Condition on Discharge: Good Instructions: Albuterol, Nystatin, Thrush-Adult Additional Instructions: ? Monitor temp. Tylenol every 4 hours as needed and / or ibuprofen every 6 hours as needed ( As long as your primary care physician has told you that it ok to take both. For fever/aches/pains ER if no less than 101 despite Tylenol or Motrin ? Humidifier/vaporizer or hot steamy shower ? Inhaler every 4-6 hours as needed like we discussed. If unsure how to use it, ask pharmacist to demonstrate how. Should help open airways and improve cough, wheezing, and shortness of breath ? Mucinex during the day for your cough and cough suppressant only at night. Be sure to drink lots of water. Insurance may not cover a prescriptions for mucinex. Might be cheaper to get 400mg tablets and take 2 tablet in the morning, mid-day and evening with lots of water. Follow up IMMEDIATELY for new or worsening of symptoms OR no noticeable improvement over the next 48-72 hours. 911 immediately for any life threatening symptoms such as chest pain or difficulty breathing You was given refill on your albuterol inhaler Prescriptions: Albuterol Sulfate [Albuterol HFA Inhaler] 1 - 2 puffs IH Q4-6H PRN #1 inh PRN Reason: Shortness Of Breath Or Wheezing Transmission Status: Received by [facility] Nystatin [Nystatin Susp 500,000 Units/5mL Udc] 5 ml PO QID 7 Days #140 udc Transmission Status: Received by [facility] Referrals: Leonardo García MD [Primary Care Provider] - As needed Time of Disposition: 17:16 Medical Decision Making - Marcelo Inquiry Pt receiving controlled substance: No Marcelo was queried for this patient: No Vital Signs: 01/30/20 16:31 01/30/20 17:23 Temperature 98.0 F 98.0 F Temperature Source Oral Pulse Rate 94 H Pulse Rate [Right Brachial] 94 H Respiratory Rate 26 H 23 Blood Pressure 134/84 Blood Pressure [Right Arm] 134/84 Blood Pressure Mean [Right Arm] 100 Blood Pressure Source [Right Arm] Automatic Cuff Blood Pressure Position [Right Arm] Sitting 02 Sat by Pulse Oximetry 99 Oxygen Delivery Method Room Air - Lab Data Lab results reviewed: Yes: I reviewed the patient's lab results. Lab Results 01/30/20 16:31: Strep Scn Rapid Clinic Negative Orders (Tests/Meds): ED MEDICATIONS Discontinued Medications Generic Name Dose Route Start Last Admin Trade Name Jude PRN Reason Stop Dose Admin Methylprednisolone Sodium Succinate 125 mg 01/30/20 16:39 01/30/20 16:50 Solu-Medrol 125mg/2ml Vial IM 01/30/20 16:40 125 mg ONCE ONE Administration ORDERS Category Date Time Status Strep Screen Confirmation Stat Micro 01/30/20 16:31 Received - Reevaluation(s) Time: 17:05 Reevaluation #1: Patient state that she took nebulizer treatment just prior to arrival [facility] [place] HPI - General Stated complaint: SOB Time Seen by Provider: 01/30/20 16:35 Mode of Arrival: Ambulatory Source of Information: Patient Limitations: No Limitations Description of Symptoms (Recalled from Triage Doc. by RN): PATIENT C/O SHORTNESS OF BREATH X 1 MONTH AND POSSIBLE THRUSH HEENT Symptoms (Recalled from RN notes): No Resp Symptoms (Recalled from RN notes): Yes Skin Symptoms (Recalled from RN notes): No MS Symptoms (Recalled from RN notes): No Functional Status (Recalled from RN notes): WNL - History of Present Illness Provider Complaint: Patient state that she has been having eppisodes of Shortness of breath and wheezing on and of for about a month States that she was recently on antibiotics State that they prescribed her some inhalers and she is here today because her throat is red and irritated and she was worried that she may have strep or yeas
[2020-01-30 17:02] LABS: UTC Strep Screen (Rapid) Negative (Negative)
[2020-01-30 17:23] VITALS: BP 134/84; PULSE 94; RESP 23; TEMP 36.7; O2SAT 99
== END 2020-01-30 17:24 | disposition home or self-care (01) ==
PROVIDERS: Emergency Provider Nurse Practitioner; PCP Internal Medicine Adolescent Medicine
DX: B37.0 Candidal stomatitis (principal); J20.8 Acute bronchitis due to other specified organisms; I48.20 Chronic atrial fibrillation, unspecified; F41.8 Other specified anxiety disorders; F17.210 Nicotine dependence, cigarettes, uncomplicated; J45.901 Unspecified asthma with (acute) exacerbation
CPT/HCPCS: 87880; 96372; 99202

== ENCOUNTER → 2020-09-11 13:20 | Outpatient (CLI) | payer MEDICAID, SELFPAY ==
[2020-09-11 14:33] LABS: Adenovirus,PCR Not Detected (NotDetected); Bordetella Pertussis Not Detected (NotDetected); Chlamydophila Pneumoniae, PCR Not Detected (NotDetected); Coronavirus 19, PCR Not Detected (NotDetected); Coronavirus 229E Not Detected (NotDetected); Coronavirus NL63 Not Detected (NotDetected); Coronavirus OC43 Not Detected (NotDetected); Coronovirus HKU1,PCR Not Detected (NotDetected); Human Metapneumovirus Not Detected (NotDetected); Influenza A, PCR Not Detected (NotDetected); Influenza AH1, 2009 Not Detected (NotDetected); Influenza AH1, PCR Not Detected (NotDetected); Influenza AH3,PCR Not Detected (NotDetected); Influenza B, PCR Not Detected (NotDetected); Mycoplasma Pneumoniae, PCR Not Detected (NotDetected); Parainfluenza 1, PCR Not Detected (NotDetected); Parainfluenza 2, PCR Not Detected (NotDetected); Parainfluenza 3, PCR Not Detected (NotDetected); Parainfluenza 4, PCR Not Detected (NotDetected); Respiratory Syncytial Virus Not Detected (NotDetected)
[2020-09-11 16:52] LABS: Rhinovirus/Enterovirus Detected (NotDetected)
== END ==
PROVIDERS: PCP Family Medicine; Visit Provider Nurse Practitioner Family
DX: Z03.818 Encounter for observation for suspected exposure to other biological agents ruled out (principal); B34.1 Enterovirus infection, unspecified
CPT/HCPCS: 87581; 87633; 87798; U0003

== ENCOUNTER 2020-09-11 15:24 | Emergency (ER) | payer MEDICAID, SELFPAY ==
[2020-09-11 15:42] VITALS: BP 140/81; PULSE 89; RESP 19; TEMP 36.9; O2SAT 99; BMI 32.3
--- NOTE | 2020-09-11 15:49 | XR_ITS ---
PROCEDURE: XR CHEST 2V CLINICAL HISTORY: CHEST CONGESTION, cough and congestion COMPARISON: CR XR CHEST 2V from 12/09/2019 CR XR CHEST 2V from 12/13/2019 CR XR CHEST 2V from 12/17/2019 CR XR CHEST 2V from 01/14/2020 FINDINGS: The cardiomediastinal silhouette and pulmonary vascularity are within normal limits. The lungs are clear without infiltrates, suspicious nodules, or pleural effusions. No acute bony abnormalities. IMPRESSION: No acute findings. Dictated by: Sadiq Holt MD 09/11/2020 16:10 Sadiq Holt MD in [place] 09/11/2020 16:10
--- NOTE | 2020-09-11 15:57 | HMH.EDUTC ---
[facility] [place] Clinical Impression: Bronchitis Sinusitis Qualifiers: Sinusitis location: unspecified location Chronicity: unspecified Qualified Code(s): J32.9 - Chronic sinusitis, unspecified Disposition: Home, Self-Care Condition on Discharge: Good Instructions: Sinusitis, DI for Sinusitis, Acute Bronchitis, Azithromycin, Methylprednisolone Additional Instructions: ? Start antibiotic today. Be sure to complete entire prescription even if feeling better ? Monitor temp. Tylenol every 4 hours as needed and / or ibuprofen every 6 hours as needed ( As long as your primary care physician has told you that it ok to take both. For fever/aches/pains ER if no less than 101 despite Tylenol or Motrin ? Humidifier/vaporizer or hot steamy shower ? Inhaler every 4-6 hours as needed like we discussed. If unsure how to use it, ask pharmacist to demonstrate how. Should help open airways and improve cough, wheezing, and shortness of breath ? Mucinex during the day for your cough and cough suppressant only at night. Be sure to drink lots of water. Insurance may not cover a prescriptions for mucinex. Might be cheaper to get 400mg tablets and take 2 tablet in the morning, mid-day and evening with lots of water. Start steroid today. Helps with inflammation therefore, cough and wheezing. Follow directions on the package. Reviewed side effects. Patient reports taking them before. Follow up IMMEDIATELY for new or worsening of symptoms OR no noticeable improvement over the next 48-72 hours. 911 immediately for any life threatening symptoms such as chest pain or difficulty breathing You were tested for today for COVID19 your test result should be back in the next 24-48 hours, you may call to the [facility] to see if your test results are back in the next 48 hours [phone] [facility] hours are 9am-9pm You was given a handout with instructions for Self Quarantine and Self isolation for while you wait on test results and what to do if they are positive If you are positive the Health Dept will be contacting you also Prescriptions: methylPREDNISolone [Medrol 4mg tab] 4 mg PO DIRECTED #21 tab Transmission Status: Pending to [facility] Azithromycin [Z-Nicolas 250mg Tab] 250 mg PO DIRECTED #6 tab Transmission Status: Pending to [facility] Referrals: Melodie Brown [Primary Care Provider] - As needed Forms: Work/School Release Time of Disposition: 16:22 Medical Decision Making - Marcelo Inquiry Pt receiving controlled substance: No Marcelo was queried for this patient: No Vital Signs: 09/11/20 15:42 Temperature 98.4 F Temperature Source Oral Pulse Rate [Radial] 89 Respiratory Rate 19 Blood Pressure [Right Arm] 140/81 Blood Pressure Mean [Right Arm] 100 Blood Pressure Source [Right Arm] Automatic Cuff Blood Pressure Position [Right Arm] Sitting 02 Sat by Pulse Oximetry 99 Oxygen Delivery Method Room Air Orders (Tests/Meds): ORDERS Category Date Time Status CXR 2 view (NOT portable) [XR chest 2V] Stat Exams 09/11/20 15:49 Taken - Radiology Data #1 Image(s): Chest Image Reviewed: Yes I have reviewed radiologist's interpretation Preliminary Findings: Normal/NAD No acute findings. [facility] [place] - General Stated complaint: possible pneumonia Time Seen by Provider: 09/11/20 15:57 Mode of Arrival: Ambulatory Source of Information: Patient Limitations: No Limitations Description of Symptoms (Recalled from Triage Doc. by RN): SHORTNESS OF BREATH, SEEN IN THE [facility] TODAY AND SENT FOR AN OUTPATIENT COVID TEST. PATIENT STATING THAT SHE THINKS SHE HAS BRONCHITIS OR PNEUMONIA AND WANTS A CHEST XRAY. HEENT Symptoms (Recalled from RN notes): Yes Resp Symptoms (Recalled from RN notes): Yes Skin Symptoms (Recalled from RN notes): No MS Symptoms (Recalled from RN notes): No Functional Status (Recalled from RN notes): WNL - History of Present Illness Provider Complaint: Patient states that she was seen at [facility] ea
[2020-09-11 16:41] VITALS: BP 140/81; PULSE 89; RESP 19; TEMP 36.9; O2SAT 99
== END 2020-09-11 16:43 | disposition home or self-care (01) ==
PROVIDERS: Emergency Provider Nurse Practitioner; PCP Family Medicine
DX: J20.9 Acute bronchitis, unspecified (principal); J32.9 Chronic sinusitis, unspecified; F41.8 Other specified anxiety disorders; I48.20 Chronic atrial fibrillation, unspecified; E03.9 Hypothyroidism, unspecified; Z88.5 Allergy status to narcotic agent; Z91.040 Latex allergy status; Z79.899 Other long term (current) drug therapy
CPT/HCPCS: 71046; 99201

== ENCOUNTER → 2020-10-30 15:29 | Outpatient (CLI) | payer MEDICAID, SELFPAY ==
[2020-10-30 16:36] LABS: Thyroid Stimulating Hormone 1.23 uIU/mL (0.465-4.68)
== END ==
PROVIDERS: Visit Provider Family Medicine
DX: E03.9 Hypothyroidism, unspecified (principal)
CPT/HCPCS: 36415; 84443

== ENCOUNTER 2020-12-11 10:32 | Emergency (ER) | payer MEDICAID, SELFPAY ==
--- NOTE | 2020-12-11 10:38 | XR_ITS ---
PROCEDURE: XR KNEE RT 3V CLINICAL INDICATION: PAIN COMPARISON: No exams were available for comparison FINDINGS: There is a faint oblique lucency at the distal aspect of the femur posteriorly. This may be due to Mach line. Cannot exclude the possibility of a nondisplaced fracture. Please correlate with patient's area of pain and tenderness. Otherwise negative IMPRESSION: Faint lucency distal femur posteriorly possibly due to a Mach line. Cannot exclude the possibility of a fracture at this region. Please correlate with patient's area of pain and tenderness Dictated by: Sadiq Holt MD 12/11/2020 11:27 Sadiq Holt MD in [place] 12/11/2020 11:27
[2020-12-11 11:00] VITALS: BP 127/56; PULSE 98; RESP 14; TEMP 36.8; O2SAT 99; BMI 32.3
--- NOTE | 2020-12-11 11:12 | HMH.EDUTC ---
[facility] [place] Impression: Left knee pain Qualifiers: Chronicity: unspecified Qualified Code(s): M25.562 - Pain in left knee Disposition: Home, Self-Care Condition on Discharge: Good Instructions: DI for Knee Pain Additional Instructions: Rest the extremity, apply ice for 15 minutes as tolerated three or four times per day, Elevate the extremity as tolerated while you are resting. Take ibuprofen for pain. I sent in a prescription to your pharmacy. Follow up with Dr. Smith (orthopedics).. I put in a referral but you need to call his office and schedule an appointment. Follow up with your regular doctor. GO TO THE ER FOR ANY WORSENING SYMPTOMS Prescriptions: Ibuprofen [Ibuprofen 600mg Tablet] 600 mg PO Q6HP PRN #30 tab PRN Reason: Mild Pain Transmission Status: Received by [facility] Referrals: Melodie Brown [Primary Care Provider] - Anthony Smith MD [Staff Physician] - Forms: Work/School Release Time of Disposition: 11:22 Medical Decision Making - Medical Records Medical records reviewed: No: I reviewed the patient's medical records. - Marcelo Inquiry Pt receiving controlled substance: No Vital Signs: 12/11/20 11:00 12/11/20 11:27 Temperature 98.2 F 98.2 F Temperature Source Oral Pulse Rate 98 H Pulse Rate [Right Brachial] 98 H Respiratory Rate 14 14 Blood Pressure 127/56 L Blood Pressure [Right Arm] 127/56 L Blood Pressure Mean [Right Arm] 79 Blood Pressure Source [Right Arm] Automatic Cuff Blood Pressure Position [Right Arm] Sitting 02 Sat by Pulse Oximetry 99 - Radiology Data #1 Image(s): Knee Image Reviewed: Yes I reviewed the patient's radiology image Preliminary Findings: No Fracture Seen [facility] [place] - General Stated complaint: right knee pain Time Seen by Provider: 12/11/20 11:13 Mode of Arrival: Ambulatory Source of Information: Patient Limitations: No Limitations Description of Symptoms (Recalled from Triage Doc. by RN): PATIENT STATES SHE TWISTED HER RIGHT KNEE AT WORK LAST WEEK HEENT Symptoms (Recalled from RN notes): No Resp Symptoms (Recalled from RN notes): No Skin Symptoms (Recalled from RN notes): No MS Symptoms (Recalled from RN notes): Yes Functional Status (Recalled from RN notes): WNL - History of Present Illness Provider Complaint: She states that since last week she has had left knee pain. The pain is worse with walking and bearing weight. - Related Data Home Medications Medication Instructions Recorded Confirmed Levothyroxine Sodium 50 mcg PO DAILY 12/22/19 09/11/20 [Levothyroxine 50mcg (0.05mg) Tab] fluticasone propionate 250 1 inh INHALATION ONCE each 09/11/20 09/11/20 mcg/actuation blister powder for inhalation Previous Rx's Medication Instructions Recorded Montelukast Sodium [Singulair 10mg 10 mg PO PM 30 Days #30 tab 12/23/19 tablet] Albuterol Sulfate [Albuterol HFA 1 - 2 puffs IH Q4-6H PRN #1 inh 01/30/20 Inhaler] Azithromycin [Z-Nicolas 250mg Tab] 250 mg PO DIRECTED #6 tab 09/11/20 methylPREDNISolone [Medrol 4mg 4 mg PO DIRECTED #21 tab 09/11/20 tab] Ibuprofen [Ibuprofen 600mg 600 mg PO Q6HP PRN #30 tab 12/11/20 Tablet] Allergies Allergy/AdvReac Type Severity Reaction Status Date / Time codeine [CODEINE] Allergy Mild Verified 09/11/20 12:36 latex Allergy Verified 09/11/20 12:36 sumatriptan [From Imitrex] Allergy body feels Verified 09/11/20 12:36 like its on fire - Worker's Comp Is this a Worker's Comp case?: No [facility] History - Hepatitis A Screen Drug use history?: No High risk sexual behaviors?: No History of sexually transmitted infection?: No Currently employed?: No Childcare worker?: No Do you have indoor plumbing?: Yes Do you have electricity?: Yes Attestation statement:: This patient has been screened for Hepatitis A risk factors. I have reviewed the patient's past medical history: Yes Medical History: Report
[2020-12-11 11:27] VITALS: BP 127/56; PULSE 98; RESP 14; TEMP 36.8; O2SAT 99
== END 2020-12-11 12:43 | disposition home or self-care (01) ==
PROVIDERS: Emergency Provider Nurse Practitioner Family; PCP Family Medicine
DX: S89.91XA Unspecified injury of right lower leg, initial encounter (principal); X50.1XXA Overexertion from prolonged static or awkward postures, initial encounter; Y92.9 Unspecified place or not applicable; F41.8 Other specified anxiety disorders; E03.9 Hypothyroidism, unspecified; I48.91 Unspecified atrial fibrillation; F17.210 Nicotine dependence, cigarettes, uncomplicated
CPT/HCPCS: 29505; 73562; 99202; G0463

== ENCOUNTER 2020-12-11 13:18 | Emergency (ER) | payer MEDICAID, SELFPAY ==
[2020-12-11 14:08] VITALS: BP 152/77; PULSE 81; RESP 18; TEMP 36.5; O2SAT 100; BMI 32.3
--- NOTE | 2020-12-11 14:13 | CT_ITS ---
PROCEDURE: CT KNEE RT WO CON CLINICAL HISTORY: pain Pain, abnormal radiograph COMPARISON: CR XR KNEE RT 3V from 12/11/2020 TECHNIQUE: Axial images obtained with sagittal and coronal reformats. All CT scans at the facility use one or more dose reduction, viz: automated exposure control, ma/kV adjustment per patient size (including targeted exams where dose is matched to indication, i.e. head), or iterative reconstruction technique. FINDINGS: X-ray demonstrate a subtle lucency along the posterior distal aspect of the femur. No fracture or dislocation. No lytic or blastic change. The radiographic abnormalities secondary to Mach line created from tendinous insertion and minimal cortical hypertrophy. Trace knee joint effusion is noted. Bone island is present within the medial aspect of the proximal tibia. IMPRESSION: Trace knee joint effusion otherwise negative Dictated by: Sadiq Holt MD 12/11/2020 14:57 Sadiq Holt MD in [place] 12/11/2020 14:57
--- NOTE | 2020-12-11 14:18 | PC.NURSE ---
GOING FOR CT
[2020-12-11 14:19] VITALS: BP 134/81; PULSE 75; RESP 18; O2SAT 98
[2020-12-11 14:30] VITALS: PULSE 81; RESP 17; O2SAT 96
[2020-12-11 15:00] VITALS: PULSE 79; RESP 16; O2SAT 98
--- NOTE | 2020-12-11 15:08 | HMH.EDGENADL ---
ED Disposition Clinical Impression: Knee injury Qualifiers: Encounter type: initial encounter Laterality: right Qualified Code(s): S89.91XA - Unspecified injury of right lower leg, initial encounter Knee sprain Qualifiers: Encounter type: initial encounter Involved ligament of knee: unspecified ligament Laterality: right Qualified Code(s): S83.91XA - Sprain of unspecified site of right knee, initial encounter Disposition: Home, Self-Care Condition on Discharge: Fair Instructions: DI for Knee Sprain Additional Instructions: You have been evaluated for knee injury. Diagnosed with a sprain. Possible femur fracture. Please continue to follow-up with Dr. Smith. Referrals: Melodie Brown [Primary Care Provider] - Anthony Smith MD [Staff Physician] - Time of Disposition: 15:15 - Critical Care Critical Care Time: No Attestation: On 12/11/20, the high probability of a clinically significant, sudden or life threatening deterioration of the following system(s) required my full and direct attention, intervention and personal management. The time I documented below is in addition to time spent performing reported procedures but includes the following listed in this critical care notation. Medical Decision Making - Medical Records Medical records reviewed: Yes: I reviewed the patient's medical records. - Marcelo Inquiry Pt receiving controlled substance: No Vital Signs: 12/11/20 14:08 Temperature 97.7 F Temperature Source Oral Pulse Rate [Left Radial] 81 Respiratory Rate 18 Blood Pressure [Right Arm] 152/77 H Blood Pressure Mean [Right Arm] 102 Blood Pressure Source [Right Arm] Automatic Cuff Blood Pressure Position [Right Arm] Sitting 02 Sat by Pulse Oximetry 100 Oxygen Delivery Method Room Air - CT Data CT Scan: Other Time Received: 15:[address] Reviewed: Yes: I have reviewed the patient's CT results, I have viewed the radiologist's interpretation Findings Narrative: CT knee FINDINGS: X-ray demonstrate a subtle lucency along the posterior distal aspect of the femur. No fracture or dislocation. No lytic or blastic change. The radiographic abnormalities secondary to Mach line created from tendinous insertion and minimal cortical hypertrophy. Trace knee joint effusion is noted. Bone island is present within the medial aspect of the proximal tibia. IMPRESSION: Trace knee joint effusion otherwise negative Medical Decision Narrative: In summary this is a 45-year-old female presenting to the emergency department with right knee injury. Patient clinically stable on arrival. Vital signs within normal limits. Knee exam is stable, no laxity on anterior posterior drawer. CT scan of the lower extremity obtained CT shows a possibly nondisplaced distal femur fracture. Shows a knee effusion. No other abnormality. Patient already has a knee immobilizer and crutches. She is established with her orthopedic surgeon, Dr. Smith. Counseled to follow-up closely. Given return precautions. General Adult HPI - General Chief complaint: Extremity Injury, Lower Stated complaint: [id number] right knee pain Time Seen by Provider: 12/11/20 14:13 Mode of Arrival: Family Vehicle Limitations: No Limitations Description of Symptoms (Recalled from ER Triage Doc. by RN): Patient states she twisted her right knee at work last week, reports she was sent to ED for CT of right knee. - History of Present Illness HPI narrative: 45-year-old female presenting to the emergency department with right knee injury. She was walking in her home on Thursday night, 6 days ago when she had a twisting injury. She had immediate pain in the back portion of her knee. Was able to walk, but was limping. Pain is located posteriorly and medial. Does not radiate to the thigh or weaver. No numbness, weakness, tingling in her foot. Her knee does not feel unstable, like she will fall. She has been taking Tylenol and ibuprofen. Was karli
[2020-12-11 15:18] VITALS: BP 133/78; PULSE 80; RESP 17; TEMP 36.6; O2SAT 97
== END 2020-12-11 15:19 | disposition home or self-care (01) ==
PROVIDERS: Emergency Provider Emergency Medicine; PCP Family Medicine
DX: S83.91XA Sprain of unspecified site of right knee, initial encounter (principal); F41.8 Other specified anxiety disorders; E03.9 Hypothyroidism, unspecified; F17.210 Nicotine dependence, cigarettes, uncomplicated; I48.91 Unspecified atrial fibrillation
CPT/HCPCS: 73700; 99283

== ENCOUNTER 2021-03-12 14:33 | Emergency (ER) | payer MEDICAID, SELFPAY ==
[2021-03-12 14:35] VITALS: BP 135/80; PULSE 67; RESP 19; TEMP 36.4; O2SAT 97; BMI 31.3
--- NOTE | 2021-03-12 15:00 | HMH.EDUTC ---
[facility] Clinical Impression: Vertigo Disposition: Home, Self-Care Condition on Discharge: Good Instructions: Vertigo, DI for Vertigo, Meclizine, Methylprednisolone Additional Instructions: Slow and steady movements make sure to allow legs to dangle before standing up No quick movements FOllow up with Family Doctor for further treatment and evaluation Straight to ER if any life threatening symptoms Follow up immediately or straight to the ER if you have any changes in vision, numbness in face, trouble smiling etc Prescriptions: Meclizine HCl [Meclizine 25mg Tab] 25 mg PO TID PRN #15 tab PRN Reason: Dizziness Transmission Status: Received by [facility] methylPREDNISolone [Medrol 4mg tab] 4 mg PO DIRECTED #21 tab Transmission Status: Received by [facility] Referrals: Melodie Brown [Primary Care Provider] - As needed Forms: Work/School Release Medical Decision Making - Marcelo Inquiry Pt receiving controlled substance: No Marcelo was queried for this patient: No Vital Signs: 03/12/21 14:35 03/12/21 15:26 Temperature 97.6 F 97.6 F Temperature Source Oral Pulse Rate 67 Pulse Rate [Right Brachial] 67 Respiratory Rate 19 19 Blood Pressure 135/80 Blood Pressure [Right Arm] 135/80 Blood Pressure Mean [Right Arm] 98 Blood Pressure Source [Right Arm] Automatic Cuff Blood Pressure Position [Right Arm] Sitting 02 Sat by Pulse Oximetry 97 Oxygen Delivery Method Room Air Orders (Tests/Meds): ED MEDICATIONS Discontinued Medications Generic Name Dose Route Start Last Admin Trade Name Freq PRN Reason Stop Dose Admin Meclizine HCl 25 mg 03/12/21 15:06 03/12/21 15:14 Meclizine 25mg Tablet PO 03/12/21 15:07 25 mg ONCE ONE Administration Medical Decision Narrative: Due to patient complaining of tingling like feeling in her face earlier today discussed transfer to the ED for further work up and evaluation and CT and patient declined state that it feels like it did when she had vertigo before and feels like she has some fluid in her sinuses/ears Patient aware of risks even and still declined Patient states that dizziness is much better after Meclizine but still feels like she is a little off balance and patient had fluid noted in right ear discussed again transfer to the ED and patient declined states that she will try Meclizine and oral steriods and follow if needed [facility] [place] - General Stated complaint: dizzy Time Seen by Provider: 03/12/21 15:01 Mode of Arrival: Ambulatory Source of Information: Patient Limitations: No Limitations Description of Symptoms (Recalled from Triage Doc. by RN): PATIENT C/O DIZZINESS, LIGHT-HEADED, AND STATES HER FACE WAS NUMB THIS MORNING HEENT Symptoms (Recalled from RN notes): Yes Resp Symptoms (Recalled from RN notes): No Skin Symptoms (Recalled from RN notes): No MS Symptoms (Recalled from RN notes): No Functional Status (Recalled from RN notes): WNL - History of Present Illness Provider Complaint: Patient states that she had a weird feeling on the right side of her face this morning States that it felt a little tingly and she woke up her son and he told her to lay down so she did and when she woke up she was no longer having that sensation but she felt pressure in her ears and felt dizzy when she would stand up quickly or look up States that she has had vertigo before and felt like it did then States that she noticed she felt off balance and bumping into stuff so she came in to get checked - Related Data Home Medications Medication Instructions Recorded Confirmed Fexofenadine HCl [Alesia 180 mg PO DAILY 03/12/21 03/12/21 Allergy] Levothyroxine Sodium [Synthroid 50 mcg PO DAILY 03/12/21 03/12/21 50mcg (0.05mg) tab] Montelukast Sodium [Singulair 10mg 10 mg PO PM 03/12/21 03/12/21 tablet] Topiramate [Topamax 100mg tablet] 100 mg PO DAILY 03/12/21 03/12/21 Previous Rx's Medication Instr
[2021-03-12 15:26] VITALS: BP 135/80; PULSE 67; RESP 19; TEMP 36.4; O2SAT 97
== END 2021-03-12 16:00 | disposition home or self-care (01) ==
PROVIDERS: Emergency Provider Nurse Practitioner; PCP Family Medicine
DX: R42 Dizziness and giddiness (principal); R20.2 Paresthesia of skin; G43.709 Chronic migraine without aura, not intractable, without status migrainosus; I48.91 Unspecified atrial fibrillation; F33.1 Major depressive disorder, recurrent, moderate; Z91.040 Latex allergy status; Z88.5 Allergy status to narcotic agent; Z79.899 Other long term (current) drug therapy
CPT/HCPCS: 99202; G0463

== ENCOUNTER 2021-04-13 21:43 | Emergency (ER) | payer MEDICAID, SELFPAY ==
[2021-04-13 23:05] VITALS: BP 108/71; PULSE 64; RESP 16; TEMP 37.2; O2SAT 100; BMI 27.6
[2021-04-13 23:16] VITALS: BMI 28.7
--- NOTE | 2021-04-13 23:17 | CT_ITS ---
PROCEDURE INFORMATION: Exam: CT Head Without Contrast Exam date and time: 04/13/2021 11:17 PM Age: 45 years old Clinical indication: Pain; Patient HX: Headache and dizziness; Additional info: H/a TECHNIQUE: Imaging protocol: Computed tomography of the head without contrast. Radiation optimization: All CT scans at this facility use at least one of these dose optimization techniques: automated exposure control; mA and/or kV adjustment per patient size (includes targeted exams where dose is matched to clinical indication); or iterative reconstruction. COMPARISON: HEADWO CT head/brain wo con 09/20/2018 6:13 PM FINDINGS: Brain: No parenchymal hematoma. No acute-appearing loss of ojeda-white differentiation. No midline shift. Extra-axial space: Unremarkable. No fluid collection or mass. Cerebral ventricles: Within expected limits for age. No ventricular outflow obstruction. Paranasal sinuses: Mild nonaggressive mucosal thickening in the ethmoid sinuses. Mastoid air cells: Visualized mastoid air cells are well aerated. Bones/joints: No depressed or calvarial fracture. Soft tissues: Unremarkable. IMPRESSION: No acute intracranial abnormality.
[2021-04-13 23:38] LABS: Basophils # 0.1 K/mm3 (0-0.2); Eosinophils # 0.2 K/mm3 (0.0-0.4); Eosinophils % 2.4 % (0.1-12.0); Hemoglobin 13.6 g/dL (12.2-16.2); Lymphocytes # 3.4 K/mm3 (0.7-4.5); Lymphocytes % 33.3 % (10-50); Mean Corpuscular HGB Conc 32.3 g/dL (31.8-35.4); Mean Corpuscular Hemoglobin 28.4 pg (27.0-31.2); Mean Corpuscular Volume 87.8 fl (81-99); Mean Platelet Volume 7.1 fl (7.4-10.4); Monocytes # 0.4 K/mm3 (0.1-1.0); Monocytes % 4.1 % (1.7-9.3); Neutrophils % 59.2 % (37.0-80.0); Platelet Count 316 K/mm3 (142-424); Red Blood Count 4.79 M/mm3 (4.20-5.40); Red Cell Distribution Width 14.5 % (11.5-17.5); White Blood Count 10.1 K/mm3 (4.8-10.8)
[2021-04-13 23:43] LABS: Alanine Aminotransferase 11 U/L (12-78); Albumin Level 4.6 g/dl (3.5-5.0); Albumin/Globulin Ratio 1.4 (1.1-1.8); Alkaline Phosphatase 103 U/L (38-126); Anion Gap 13.8 mEq/L (5-15); Aspartate Amino Transferase 18 U/L (14-36); Bilirubin,Total 0.3 mg/dl (0.2-1.3); Blood Urea Nitrogen 11 mg/dl (7-17); Calcium 8.8 mg/dl (8.4-10.2); Carbon Dioxide 26 mmol/L (22.0-30.0); Chloride 107 mmol/L (98-107); Creatinine Clearance Estimated 84 mL/min (50-200); Estimated Glomerular Filt Rate 54 ml/min (>60); GFR (African American) 66 ML/MIN (>60); Globulin 3.2 g/dL (1.3-3.2); Glucose 92 mg/dl (74-100); Potassium 3.8 mmoL/L (3.5-5.1); Sodium 143 mmol/L (136-145); Total Protein,Serum 7.8 g/dl (6.3-8.2)
[2021-04-13 23:48] LABS: C-Reactive Protein 2.7 mg/L (0-4)
[2021-04-14 00:02] LABS: Procalcitonin 0.046 ng/mL (0.0-2.0)
[2021-04-14 00:21] LABS: Erythrocyte Sedimentation Rate 16 mm/hr (0-20)
--- NOTE | 2021-04-14 01:28 | HMH.EDGENADL ---
ED Disposition Clinical Impression: Lesion of skin of scalp Headache Qualifiers: Headache type: unspecified Headache chronicity pattern: acute headache Intractability: not intractable Qualified Code(s): R51.9 - Headache, unspecified Disposition: Home, Self-Care Condition on Discharge: Good Instructions: DI for Headache Additional Instructions: see pcp and surg for follow up Referrals: Melodie Brown [Primary Care Provider] - Best Golden MD [Staff Physician] - - Critical Care Critical Care Time: No Attestation: On 04/13/21, the high probability of a clinically significant, sudden or life threatening deterioration of the following system(s) required my full and direct attention, intervention and personal management. The time I documented below is in addition to time spent performing reported procedures but includes the following listed in this critical care notation. Medical Decision Making - Medical Records Medical records reviewed: Yes: I reviewed the patient's medical records. - Marcelo Inquiry Pt receiving controlled substance: No Vital Signs: 04/13/21 23:05 Temperature 98.9 F Temperature Source Oral Pulse Rate [Left Brachial] 64 Respiratory Rate 16 Blood Pressure [Right Arm] 108/71 L Blood Pressure Mean [Right Arm] 83 Blood Pressure Source [Right Arm] Automatic Cuff Blood Pressure Position [Right Arm] Sitting 02 Sat by Pulse Oximetry 100 Oxygen Delivery Method Room Air - Lab Data Lab results reviewed: Yes: I reviewed the patient's lab results. Lab Results 04/13/21 23:20: WBC 10.1, RBC 4.79, Hgb 13.6, Hct 42.0, MCV 87.8, MCH 28.4, MCHC 32.3, RDW 14.5, Plt Count 316, MPV 7.1 L, Neut % (Auto) 59.2, Lymph % (Auto) 33.3, [place] % (Auto) 4.1, Eos % (Auto) 2.4, Baso % (Auto) 1.0, Neut # (Auto) 6.0, Lymph # (Auto) 3.4, [place] # (Auto) 0.4, Eos # (Auto) 0.2, Baso # (Auto) 0.1, ESR 16 04/13/21 23:20: Sodium 143, Potassium 3.8, Chloride 107, Carbon Dioxide 26, Anion Gap 13.8, BUN 11, Creatinine 1.10 H, Estimated Creat Clear 84, Estimated GFR 54 L, Est GFR ( Amer) 66, Glucose 92, Calcium 8.8, Total Bilirubin 0.3, AST 18, ALT 11 L, Alkaline Phosphatase 103, C-Reactive Protein 2.7, Total Protein 7.8, Albumin 4.6, Globulin 3.2, Albumin/Globulin Ratio 1.4, Procalcitonin 0.046 Result diagrams: 04/13/21 23:20 04/13/21 23:20 Orders (Tests/Meds): ED MEDICATIONS Generic Name Dose Route Start Last Admin Trade Name Freq PRN Reason Stop Dose Admin Sodium Chloride 1,000 mls @ 999 mls/hr 04/13/21 23:30 04/13/21 23:28 Sod Chlor 0.9% 1000ml Bag IV 04/14/21 00:30 999 mls/hr .[id number] WAYNE Administration Discontinued Medications Generic Name Dose Route Start Last Admin Trade Name Freq PRN Reason Stop Dose Admin Diphenhydramine HCl 50 mg 04/13/21 23:17 04/13/21 23:29 Diphenhydramine 50mg/Ml Vial IV 04/13/21 23:18 50 mg ONCE ONE Administration Ketorolac Tromethamine 30 mg 04/13/21 23:17 04/13/21 23:29 Ketorolac 30mg/Ml Vial IV 04/13/21 23:18 30 mg ONCE ONE Administration Ondansetron HCl 4 mg 04/13/21 23:17 04/13/21 23:38 Ondansetron 4mg/2ml Vial IV 04/13/21 23:18 Not Given ONCE ONE Promethazine HCl 25 mg 04/13/21 23:17 04/13/21 23:29 Promethazine Hcl 25mg/Ml 1ml Vial IV 04/13/21 23:18 25 mg ONCE ONE Administration Sodium Chloride 25 ml 04/13/21 23:17 04/13/21 23:29 Sodium Chloride 0.9% 25ml Bag IV 04/13/21 23:18 25 ml ONCE ONE Administration - CT Data CT Scan: Head Time Received: 01:[address] Reviewed: Yes: I have viewed the radiologist's interpretation Preliminary Findings: Normal/NAD Medical Decision Narrative: will need to see surg for possible removal General Adult HPI - General Chief complaint: PAIN Stated complaint: knot behind left ear, lightheaded, headache Time Seen by Provider: 04/14/21 00:00 Mode of Arrival: Ambulatory Source of Information: Patient, Significant Other, Medical Record Limitations: No Limitatio
[2021-04-14 01:40] VITALS: BP 115/76; PULSE 68; RESP 16; TEMP 37.2; O2SAT 99
== END 2021-04-14 01:43 | disposition home or self-care (01) ==
PROVIDERS: Emergency Provider Emergency Medicine; PCP Family Medicine
DX: R22.0 Localized swelling, mass and lump, head (principal); L98.9 Disorder of the skin and subcutaneous tissue, unspecified; I48.91 Unspecified atrial fibrillation; F41.8 Other specified anxiety disorders; E03.9 Hypothyroidism, unspecified; F17.210 Nicotine dependence, cigarettes, uncomplicated
CPT/HCPCS: 70450; 80053; 84145; 85025; 85651; 86140; 96375; 99282; 99283

== ENCOUNTER 2021-05-24 14:04 | Emergency (ER) | payer MEDICAID, SELFPAY ==
[2021-05-24 14:10] VITALS: BP 115/56; PULSE 86; RESP 19; TEMP 36.9; O2SAT 98; BMI 27.8
--- NOTE | 2021-05-24 14:41 | HMH.EDUTC ---
[facility] [place] Disposition Clinical Impression: Nausea vomiting and diarrhea, Thrush, oral Disposition: Home, Self-Care Condition on Discharge: Good Instructions: Nausea and Vomiting-Adult, Diarrhea, Thrush-Adult Additional Instructions: Use Nystatin as prescribe swish and spit Drink extra fluids with and between meals. If you have difficulty drinking, try very small amounts of water or suck on ice chips. ? Avoid fruit juices, as these do not replace minerals and can actually increase diarrhea. ? Children and adults can use sports drinks to replenish electrolytes. Younger children and infants should use products formulated for children, like oral rehydration solutions. ? Eat food in small amounts and let your stomach recover. ? Get lots of rest. You may feel tired or weak. ? No greasy or fried foods for the next 24-48 hours BRAT diet Bananas Rice Apples and [place] ? Make sure to drink plenty of liquids ? Return if needed ? Straight to ER if any life threatening symptoms ? Zofran as prescribed ? You was given an outpatient order for diarrhea panel, please collect specimen and bring back to outpatient lab then call back to the [facility] or follow up with family doctor for results ? Follow up with family doctor in the next 48-72 hours if no improvement or any worsening of symptoms Prescriptions: Dicyclomine HCl [Bentyl 10mg capsule] 10 mg PO TID PRN #15 cap PRN Reason: Cramping Transmission Status: Pending to [facility] Nystatin [Nystatin Susp 500,000 Units/5mL Udc] 4 ml PO QID 10 Days #160 udc Transmission Status: Pending to [facility] Ondansetron [Zofran 4mg ODT] 4 mg PO TIDP PRN #6 tab PRN Reason: Nausea Transmission Status: Pending to [facility] Referrals: Melodie Brown [Primary Care Provider] - Forms: Work/School Release Time of Disposition: 15:21 Medical Decision Making - Marcelo Inquiry Pt receiving controlled substance: No Marcelo was queried for this patient: No Vital Signs: 05/24/21 14:10 Temperature 98.5 F Temperature Source Oral Pulse Rate [Right Brachial] 86 Respiratory Rate 19 Blood Pressure [Right Arm] 115/56 L Blood Pressure Mean [Right Arm] 75 Blood Pressure Source [Right Arm] Automatic Cuff Blood Pressure Position [Right Arm] Sitting 02 Sat by Pulse Oximetry 98 Oxygen Delivery Method Room Air Orders (Tests/Meds): ED MEDICATIONS Discontinued Medications Generic Name Dose Route Start Last Admin Trade Name Jude PRN Reason Stop Dose Admin Dicyclomine HCl 10 mg 05/24/21 14:49 05/24/21 15:02 Dicyclomine 10mg Capsule PO 05/24/21 14:50 10 mg ONCE ONE Administration Ondansetron HCl 4 mg 05/24/21 14:49 05/24/21 15:02 Ondansetron 4mg Odt SL 05/24/21 14:50 4 mg ONCE ONE Administration Medical Decision Narrative: Patient states she has taken zofran in the past without reactions or complications Patient state that she feels much better after medication [facility] [place] HPI - General Stated complaint: cough, sob, abd pain, diar, , vomiting, body ache Time Seen by Provider: 05/24/21 14:41 Mode of Arrival: Ambulatory Source of Information: Patient Limitations: No Limitations Description of Symptoms (Recalled from Triage Doc. by RN): PATIENT C/O STOMACH ACHE, NAUSEA, DIARRHEA, AND VOMITING X 3 DAYS HEENT Symptoms (Recalled from RN notes): No Resp Symptoms (Recalled from RN notes): No Skin Symptoms (Recalled from RN notes): No MS Symptoms (Recalled from RN notes): No Functional Status (Recalled from RN notes): WNL - History of Present Illness Provider Complaint: Patient states that she started having vomiting and diarrhea on Wed States that vomiting is better but still having nausea and diarrhea State that she also has been having body aches, chills and over all not feeling well States that she feels like she may have stomach bug - Related Data Home Medications Medication Instructions Recorded Confirmed Fexofenadine HCl [Alesia 180 mg PO DAILY 03/12/21
[2021-05-24 15:16] VITALS: BP 115/56; PULSE 86; RESP 19; TEMP 36.9; O2SAT 98
== END 2021-05-24 15:28 | disposition home or self-care (01) ==
PROVIDERS: Emergency Provider Nurse Practitioner; PCP Family Medicine
DX: R11.2 Nausea with vomiting, unspecified (principal); R19.7 Diarrhea, unspecified; B37.0 Candidal stomatitis; F17.210 Nicotine dependence, cigarettes, uncomplicated; F41.8 Other specified anxiety disorders
CPT/HCPCS: 99202; G0463

== ENCOUNTER → 2021-05-24 18:42 | Outpatient (REF) | payer MEDICAID, SELFPAY ==
[2021-05-24 18:52] LABS: Adenovirus F 40/41, stool Not Detected (NotDetected); Astrovirus Not Detected (NotDetected); Campylobacter Not Detected (NotDetected); Clostridium Difficile A/B, PCR Not Detected (NotDetected); Cryptosporidium Not Detected (NotDetected); Cyclospora Cayetanesis Not Detected (NotDetected); Entamoeba histolytica Not Detected (NotDetected); Enteroaggregative E coli Not Detected (NotDetected); Enteropathogenic E coli Not Detected (NotDetected); Enterotoxigenic E coli Not Detected (NotDetected); Giardia lamblia Not Detected (NotDetected); Norovirus Not Detected (NotDetected); Plesimonas Shigalloides, PCR Not Detected (NotDetected); Rotavirus A Not Detected (NotDetected); Salmonella, PCR Not Detected (NotDetected); Sapovirus Not Detected (NotDetected); Shiga-like toxin E coli Not Detected (NotDetected); Shigella Enterovasive E coli Not Detected (NotDetected); Vibrio Cholerae Not Detected (NotDetected); Vibrio, PCR Not Detected (NotDetected); Yersinia Entercolitica, PCR Not Detected (NotDetected)
== END ==
LOC: LAB.DROPOF 18:42
PROVIDERS: Visit Provider Nurse Practitioner
DX: R19.7 Diarrhea, unspecified (principal)
CPT/HCPCS: 87507

== ENCOUNTER → 2021-06-25 14:50 | Outpatient (CLI) | payer MEDICAID, SELFPAY ==
[2021-06-25 17:43] LABS: Chloride 110 mmol/L (98-107); Potassium 4.5 mmoL/L (3.5-5.1); Sodium 146 mmol/L (136-145)
[2021-06-25 17:46] LABS: Alanine Aminotransferase 10 U/L (12-78); Albumin Level 4.2 g/dl (3.5-5.0); Albumin/Globulin Ratio 1.6 (1.1-1.8); Alkaline Phosphatase 117 U/L (38-126); Anion Gap 15.5 mEq/L (5-15); Aspartate Amino Transferase 18 U/L (14-36); Blood Urea Nitrogen 9 mg/dl (7-17); Calcium 9.3 mg/dl (8.4-10.2); Carbon Dioxide 25 mmol/L (22.0-30.0); Estimated Glomerular Filt Rate 54 ml/min (>60); GFR (African American) 66 ML/MIN (>60); Globulin 2.7 g/dL (1.3-3.2); Glucose 82 mg/dl (74-100); Total Protein,Serum 6.9 g/dl (6.3-8.2)
[2021-06-25 17:49] LABS: Bilirubin,Total 0.1 mg/dl (0.2-1.3)
[2021-06-25 18:17] LABS: Thyroid Stimulating Hormone 0.95 uIU/mL (0.465-4.68)
== END ==
PROVIDERS: Visit Provider Family Medicine
DX: E03.9 Hypothyroidism, unspecified (principal)
CPT/HCPCS: 36415; 80053; 84443

== ENCOUNTER → 2021-07-03 19:36 | Outpatient (CLI) | payer MEDICAID, SELFPAY | PROVIDERS: Visit Provider Nurse Practitioner Family | DX: Z20.822 Contact with and (suspected) exposure to COVID-19 (principal) | CPT/HCPCS: C9803; U0003; U0005 ==

== ENCOUNTER → 2021-10-17 11:51 | Outpatient (CLI) | payer BC, MEDICAID, SELFPAY ==
[2021-10-17 11:54] LABS: Adenovirus,PCR Not Detected (NotDetected); Bordetella Pertussis Not Detected (NotDetected); Chlamydophila Pneumoniae, PCR Not Detected (NotDetected); Coronavirus 229E Not Detected (NotDetected); Coronavirus NL63 Not Detected (NotDetected); Coronavirus OC43 Not Detected (NotDetected); Coronovirus HKU1,PCR Not Detected (NotDetected); Human Metapneumovirus Not Detected (NotDetected); Influenza A, PCR Not Detected (NotDetected); Influenza AH1, 2009 Not Detected (NotDetected); Influenza AH1, PCR Not Detected (NotDetected); Influenza AH3,PCR Not Detected (NotDetected); Influenza B, PCR Not Detected (NotDetected); Mycoplasma Pneumoniae, PCR Not Detected (NotDetected); Parainfluenza 1, PCR Not Detected (NotDetected); Parainfluenza 2, PCR Not Detected (NotDetected); Parainfluenza 3, PCR Not Detected (NotDetected); Parainfluenza 4, PCR Not Detected (NotDetected); Respiratory Syncytial Virus Not Detected (NotDetected); Rhinovirus/Enterovirus Not Detected (NotDetected)
[2021-10-17 14:45] LABS: Coronavirus 19, PCR Detected (NotDetected)
== END ==
PROVIDERS: Visit Provider Nurse Practitioner Family
DX: U07.1 COVID-19 (principal); J02.9 Acute pharyngitis, unspecified
CPT/HCPCS: 87581; 87632; 87798; C9803; U0003; U0005

== ENCOUNTER 2022-07-29 10:14 | Emergency (ER) | payer MEDICAID, SELFPAY ==
[2022-07-29] VITALS (8 sets, daily range): BP systolic 112–138; BP diastolic 64–85; PULSE 61–85; RESP 16–20; TEMP 36.8–36.9; O2SAT 95–100; BMI 27.4
--- NOTE | 2022-07-29 10:34 | XR_ITS ---
FINAL REPORT CLINICAL HISTORY: wheezing/SOA COMPARISON: 01/14/2020 FINDINGS: Two views of the chest were obtained. The heart size and pulmonary vascularity are within normal limits. The mediastinum is normal. No acute pulmonary abnormality is identified. There is no pneumothorax. The bony thorax is intact. IMPRESSION: No active cardiopulmonary disease. Reviewed, Interpreted and Dictated by Best Levy III, MD Transcribed by Georgiana Cavazos Authenticated and [facility]
--- NOTE | 2022-07-29 10:39 | HMH.EDGENADL ---
Discharge Plan Disposition Patient Disposition: Home, Self-Care Condition: Good Prescriptions Prescriptions: New prednisone 20 mg tablet 20 mg PO BID Qty: 10 0RF No Action fexofenadine 180 MG tablet 180 mg PO DAILY levothyroxine 50 MCG tablet 50 mcg PO DAILY montelukast 10 MG tablet 10 mg PO PM topiramate 100 MG tablet 100 mg PO DAILY meclizine 25 MG tablet,chewable 25 mg PO TID PRN (Reason: Dizziness) Qty: 15 0RF dicyclomine 10 MG capsule 10 mg PO TID PRN (Reason: Cramping) Qty: 15 0RF Referrals Follow up/Referrals: Melodie Brown [Primary Care Provider] - See instructions Activity Restrictions/Add. Instructions Additional Instructions/Restrictions: Continue albuterol inhaler. Prednisone as prescribed. Follow-up with primary care provider if not improving in 4 to 5 days. Clinical Impressions Clinical Impression: Upper respiratory infection, viral, Asthma exacerbation, Pharyngitis Discharge ED Provider: Rubin Peres General Adult HPI General Chief complaint: Shortness of Breath/Dyspnea Stated complaint: Sore throat, headache,Whizzing Time Seen by Provider: 07/29/22 10:36 Mode of Arrival: Ambulatory Source of Information: Patient Limitations: No Limitations Description of Symptoms (Recalled from ER Triage Doc. by RN): pt to ed c/o shortness of breah and audible wheezing. pt states she woke up and was unable to catch her breath. pt denies inhaler use at home. History of Present Illness HPI narrative: States she began getting ill yesterday. She has a headache, sore/raw throat, shortness of breath and wheezing. Minimal cough and no sputum production. No fever. 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 She is a smoker. She has a history of obstructive lung disease and has albuterol and Flovent inhalers at home. Related Data Home Medications Medication Instructions Recorded Confirmed fexofenadine 180 mg tablet 180 mg PO DAILY Allergy symptoms 03/12/21 10/16/21 levothyroxine 50 mcg tablet 50 mcg PO DAILY THYROID 03/12/21 10/16/21 montelukast 10 mg tablet 10 mg PO PM Allergy symptoms 03/12/21 10/16/21 topiramate 100 mg tablet 100 mg PO DAILY MIGRAINES 03/12/21 10/16/21 Previous Rx's Medication Instructions Recorded meclizine 25 mg chewable tablet 25 mg PO TID PRN Dizziness #15 tabs 03/12/21 dicyclomine 10 mg capsule 10 mg PO TID PRN Cramping #15 caps 05/24/21 prednisone 20 mg tablet 20 mg PO BID #10 tabs 07/29/22 Allergies Allergy/AdvReac Type Severity Reaction Status Date / Time codeine [CODEINE] Allergy Mild Verified 10/16/21 12:37 latex Allergy Verified 10/16/21 12:37 sumatriptan [From Imitrex] Allergy body feels Verified 10/16/21 12:37 like its on fire [facility] Social History Smoking Status: Current every day smoker tobacco type: cigarettes packs per day: 1 second hand exposure: Yes alcohol intake: never substance use type: denies use current occupational status: other Travel in the last 8 weeks: None household members: children housing: house caffeine: Yes ROS Obtained: Yes Systems reviewed as appropriate & no additional complaints except as documented Constitutional Constitutional: Denies fever(s) ENT Ears, Nose, Mouth, and Throat: Reports sore throat Cardiovascular Cardiovascular: Denies chest pain Respiratory Respiratory: Reports shortness of breath, Reports cough and Reports wheezing Allergic/Immunologic Allergic/Immunologic: Reports wheezing Physical Exam General General appearance: alert and in no apparent distress ENT ENT exam: Present TM's normal bilaterally Expanded ENT Exam Throat exam: Present other (Pharyngeal erythema); Absent tonsillomegaly, tonsillar exudate, R peritonsillar mass or L peritonsillar mass Neck Neck exam: Present normal inspecti
[2022-07-29 12:16] LABS: Coronavirus 19, PCR Not Detected (NotDetected); Influenza A, PCR Not Detected (NotDetected); Influenza B, PCR Not Detected (NotDetected)
[2022-07-29 12:28] LABS: Strep Scrn Group A (Rapid) Negative (Negative)
== END 2022-07-29 13:21 | disposition home or self-care (01) ==
PROVIDERS: Emergency Provider Emergency Medicine; PCP Family Medicine
DX: J45.901 Unspecified asthma with (acute) exacerbation (principal); J06.9 Acute upper respiratory infection, unspecified
CPT/HCPCS: 71046; 87430; 99212; C9803; G0463; U0003; U0005

== ENCOUNTER 2023-06-10 19:46 | Emergency (ER) | payer OTHER, SELFPAY ==
--- NOTE | 2023-06-10 19:51 | XR_ITS ---
PROCEDURE INFORMATION: Exam: XR Left Elbow Exam date and time: 06/10/2023 7:57 PM Age: 47 years old Clinical indication: Pain; Elbow; Left. Pain after pulling on the patient. TECHNIQUE: Imaging protocol: Radiologic exam of the left elbow. Views: 3 or more views. COMPARISON: CR XR FOREARM LT 2V 06/10/2023 7:56 PM FINDINGS: Bones/joints: No acute fracture identified. Benign-appearing subarticular lucency in the capitellum likely degenerative related. Soft tissues: Normal. IMPRESSION: No acute findings.
--- NOTE | 2023-06-10 19:51 | XR_ITS ---
PROCEDURE INFORMATION: Exam: XR Left Humerus Exam date and time: 06/10/2023 7:53 PM Age: 47 years old Clinical indication: Pain; Upper arm; Left TECHNIQUE: Imaging protocol: Radiologic exam of the left humerus. Views: 2 or more views. COMPARISON: CR XR CHEST 2V 07/29/2022 10:32 AM FINDINGS: Bones/joints: Normal. No acute fracture identified. Soft tissues: Normal. IMPRESSION: No acute findings.
--- NOTE | 2023-06-10 19:51 | XR_ITS ---
PROCEDURE INFORMATION: Exam: XR Left Forearm Exam date and time: 06/10/2023 7:56 PM Age: 47 years old Clinical indication: Lower or forearm; Left; Patient HX: Pain after pullling on a PT TECHNIQUE: Imaging protocol: Radiologic exam of the left forearm. Views: 2 views. COMPARISON: No relevant prior studies available. FINDINGS: Bones/joints: Normal. No acute fracture identified. Soft tissues: Normal. IMPRESSION: No acute findings.
[2023-06-10 20:10] VITALS: BP 143/79; PULSE 79; RESP 20; TEMP 37; O2SAT 98; BMI 27.8
--- NOTE | 2023-06-10 20:32 | EXP.UTC ---
Discharge Plan Disposition Patient Disposition: Home, Self-Care Condition: Good Prescriptions Prescriptions: No Action fexofenadine 180 MG tablet 180 mg PO DAILY levothyroxine 50 MCG tablet 50 mcg PO DAILY montelukast 10 MG tablet 10 mg PO PM topiramate 100 MG tablet 100 mg PO DAILY meclizine 25 MG tablet,chewable 25 mg PO TID PRN (Reason: Dizziness) Qty: 15 0RF dicyclomine 10 MG capsule 10 mg PO TID PRN (Reason: Cramping) Qty: 15 0RF prednisone 20 mg tablet 20 mg PO BID Qty: 10 0RF Referrals Follow up/Referrals: Bassam Estevez DO [Staff Physician] - See instructions (call office for appointment) Melodie Brown [Primary Care Provider] - See instructions Activity Restrictions/Add. Instructions Additional Instructions/Restrictions: *RICE, Rest the extremity, Ice 15-20 minutes 3-4 times daily, Compress- wear the portillo wrap as discussed as much as possible to help reduce swelling and pain, Elevate the extremity when at rest *Portillo wrap/sling is for support and help control swelling, use it except in the shower. Be sure that is not to tight but not to loose either *Elevate when resting? *Ibuprofen 600mg every 6-8 hours as needed for pain an inflammation. If need something more can take Tylenol in between doses of Ibuprofen to help Immediately follow up with your family doctor for new or worsening of symptoms, or no noticeable improvement over the next 3-5 days Call Orthopedic office for appointment or follow up with your Family Doctor if no improvement Clinical Impressions Clinical Impression: Arm injury Qualifiers: Encounter type: initial encounter Laterality: left Qualified Code(s): S49.92XA - Unspecified injury of left shoulder and upper arm, initial encounter Stand Alone Forms Stand Alone Forms: Work/School Release Instructions Patient Instructions: Muscle Strain, Ibuprofen, How to Use a Sling Discharge ED Provider: Elissa Mckeon [facility] General Stated complaint: WC 06/10, left arm pain Mode of Arrival: Ambulatory Source of Information: Patient Limitations: No Limitations Time Seen by Provider: 06/10/23 20:33 Description of Symptoms (Recalled from Triage Doc. 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 C/O PAIN TO LEFT UPPER AND FOREARM AND SWELLING TO LEFT HAND AND FINGERS. 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 and started having pain in her left arm around the mid of her left upper arm that goes down elbow into forearm State that she wasnt sure if she broke anything or pulled/tore the muscle in her upper arm since the pain was worse when she would move her arm or flex her muscle Related Data Home Medications Medication Instructions Recorded Confirmed fexofenadine 180 mg tablet 180 mg PO DAILY Allergy symptoms 03/12/21 10/16/21 levothyroxine 50 mcg tablet 50 mcg PO DAILY THYROID 03/12/21 10/16/21 montelukast 10 mg tablet 10 mg PO PM Allergy symptoms 03/12/21 10/16/21 topiramate 100 mg tablet 100 mg PO DAILY MIGRAINES 03/12/21 10/16/21 Previous Rx's Medication Instructions Recorded meclizine 25 mg chewable tablet 25 mg PO TID PRN Dizziness #15 tabs 03/12/21 dicyclomine 10 mg capsule 10 mg PO TID PRN Cramping #15 caps 05/24/21 prednisone 20 mg tablet 20 mg PO BID #10 tabs 07/29/22 Allergies Allergy/AdvReac Type Severity Reaction Status Date / Time codeine [CODEINE] Allergy Mild Verified 10/16/21 12:37 latex Allergy Verified 10/16/21 12:37 sumatriptan [From Imitrex] Allergy body feels Verified 10/16/21 12:37 like its on fire Worker's Comp Is this a Worker's Comp case?: No
[2023-06-10 20:40] VITALS: BP 143/79; PULSE 79; RESP 20; TEMP 37; O2SAT 98
== END 2023-06-10 20:54 | disposition home or self-care (01) ==
PROVIDERS: Emergency Provider Nurse Practitioner; PCP Family Medicine
DX: S49.92XA Unspecified injury of left shoulder and upper arm, initial encounter (principal); F17.210 Nicotine dependence, cigarettes, uncomplicated; X50.0XXA Overexertion from strenuous movement or load, initial encounter
CPT/HCPCS: 73060; 73080; 73090; 99212; 99213; G0463

== ENCOUNTER → 2023-06-25 14:48 | Outpatient (CLI) | payer OTHER, SELFPAY ==
--- NOTE | 2023-06-25 14:59 | MR_ITS ---
FINAL REPORT CLINICAL HISTORY: PAIN IN LEFT ELBOW when extending arm COMPARISON: None FINDINGS: Multiplanar MR imaging of the left elbow was performed without contrast. The bony structures are intact without evidence of fracture, bone bruise or marrow edema. There are multiple osteochondral lesions within the capitellum. These measure up to 5 mm. The ligaments appear intact. The common extensor tendon is intact. The common flexor tendon is intact. The biceps tendon appears intact. There is fluid and edema surrounding the distal biceps tendon best seen on images 19-25 of series 4. The distal triceps tendon is intact. The brachialis tendon is intact. The musculature has an unremarkable appearance. No soft tissue mass or cyst is identified. No focal abnormality is identified of the ulnar nerve. 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 Distal biceps tenosynovitis. Reviewed, Interpreted and Dictated by Kevin vAila MD Transcribed by Idalia Ocasio Authenticated and . [facility]
== END ==
DX: M25.522 Pain in left elbow (principal); S46.212A Strain of muscle, fascia and tendon of other parts of biceps, left arm, initial encounter
CPT/HCPCS: 73221

== ENCOUNTER 2023-07-27 15:00 | Outpatient (RCR) | payer OTHER, SELFPAY | END 2023-07-27 15:05 | disposition home or self-care (01) | LOC: OT 15:00 | PROVIDERS: Visit Provider Orthopaedic Surgery Adult Reconstructive Orthopaedic Surgery | DX: M25.522 Pain in left elbow (principal); S46.212A Strain of muscle, fascia and tendon of other parts of biceps, left arm, initial encounter | CPT/HCPCS: 97010; 97014; 97035; 97110; 97140; 97165; G0283 ==

== ENCOUNTER 2024-01-25 11:00 | Outpatient (RCR) | payer OTHER, SELFPAY | END 2024-01-25 11:05 | disposition home or self-care (01) | LOC: OT 11:00 | PROVIDERS: Visit Provider Orthopaedic Surgery | DX: M79.622 Pain in left upper arm (principal); S46.212A Strain of muscle, fascia and tendon of other parts of biceps, left arm, initial encounter | CPT/HCPCS: 97010; 97014; 97035; 97110; 97140; 97164; 97166; G0283 ==

== ENCOUNTER 2024-04-29 09:37 | Emergency (ER) | payer OTHER, SELFPAY ==
[2024-04-29 09:54] VITALS: BP 164/90; PULSE 71; RESP 18; TEMP 36.7; O2SAT 98; BMI 29.5
--- NOTE | 2024-04-29 10:04 | ED_ITS ---
Discharge Plan Disposition Patient Disposition: Home, Self-Care Condition: Good Prescriptions Prescriptions: New benzonatate 100 mg capsule 100 mg PO TIDP PRN (Reason: Cough) Qty: 30 0RF ondansetron 4 mg Tablet,Disintegrating 4 mg PO Q8H PRN (Reason: Nausea) Qty: 12 0RF No Action fexofenadine 180 MG tablet 180 mg PO DAILY levothyroxine 50 MCG tablet 50 mcg PO DAILY montelukast 10 MG tablet 10 mg PO PM topiramate 100 MG tablet 100 mg PO DAILY meclizine 25 MG tablet,chewable 25 mg PO TID PRN (Reason: Dizziness) Qty: 15 0RF dicyclomine 10 MG capsule 10 mg PO TID PRN (Reason: Cramping) Qty: 15 0RF prednisone 20 mg tablet 20 mg PO BID Qty: 10 0RF Referrals Follow up/Referrals: Provider,Referral, MD [Primary Care Provider] - See instructions Activity Restrictions/Add. Instructions Additional Instructions/Restrictions: Drink plenty of fluids. Take tylenol or ibuprofen for pain or fever. Take the medications as directed. Follow up with your regular doctor. GO TO THE ER FOR ANY WORSENING SYMPTOMS Clinical Impressions Clinical Impression: Acute viral syndrome, Gastroenteritis, Exposure to 2019 novel coronavirus Stand Alone Forms Stand Alone Forms: Work/School Release Instructions Patient Instructions: Ondansetron, Coronavirus Disease 2019, Preventing the Spread of Coronavirus Discharge Instructions Print Language Print Language: Turkish Discharge ED Provider: Leonardo Coates [facility] General Stated complaint: diarreah, vomiting, chills, abd pain Mode of Arrival: Ambulatory Source of Information: Patient Limitations: No Limitations Time Seen by Provider: 04/29/24 10:04 Description of Symptoms (Recalled from Triage Doc. by RN): Patient reports possible stomach bug. Complaint of vomiting, diarrhea, cough and stomach cramps. HEENT Symptoms (Recalled from RN notes): No Resp Symptoms (Recalled from RN notes): No Skin Symptoms (Recalled from RN notes): No MS Symptoms (Recalled from RN notes): No Functional Status (Recalled from RN notes): wnl Related Data Home Medications ?Medication ?Instructions ?Recorded ?Confirmed fexofenadine 180 mg tablet 180 mg PO DAILY Allergy symptoms 03/12/21 10/16/21 levothyroxine 50 mcg tablet 50 mcg PO DAILY THYROID 03/12/21 10/16/21 montelukast 10 mg tablet 10 mg PO PM Allergy symptoms 03/12/21 10/16/21 topiramate 100 mg tablet 100 mg PO DAILY MIGRAINES 03/12/21 10/16/21 Previous Rx's ?Medication ?Instructions ?Recorded meclizine 25 mg chewable tablet 25 mg PO TID PRN Dizziness #15 tabs 03/12/21 dicyclomine 10 mg capsule 10 mg PO TID PRN Cramping #15 caps 05/24/21 prednisone 20 mg tablet 20 mg PO BID #10 tabs 07/29/22 benzonatate 100 mg capsule 100 mg PO TIDP PRN Cough #30 caps 04/29/24 ondansetron 4 mg disintegrating 4 mg PO Q8H PRN Nausea #12 tabs 04/29/24 tablet Allergies Allergy/AdvReac Type Severity Reaction Status Date / Time codeine [CODEINE] Allergy Mild Verified 10/16/21 12:37 latex Allergy Verified 10/16/21 12:37 sumatriptan [From Imitrex] Allergy body feels Verified 10/16/21 12:37 like its on fire Worker's Comp Is this a Worker's Comp case?: No [facility] Disclaimer: The information contained in this section may have been updated after the patient was seen, as this information can be updated by other users. Social History Smoking Status: Current every day smoker tobacco type: cigarettes packs per day: 1 second hand exposure: Yes alcohol intake: never substance use type: denies use current occupational status: other Travel in the last 8 weeks: None household members: children housing: house caffeine: Yes ROS Obtained: Yes All systems reviewed & no additional complaints except as documented Constitutional Constitutional: Reports chills and Reports fever(s) Eyes Eyes: Denies eye discharge ENT Ears, Nose, Mouth, and Throat: Reports as per HPI Cardiovascular Cardiovascular: Denies chest pain Respiratory Respiratory: Denies chest congestion and Reports cough Gastrointestinal Gastrointestingal: Reports nausea; Denies abdominal pain, constipation, cramping, diarrhea or vomiting Musculoskeletal Musculoskeletal: Denies arthralgias Integumentary/Breasts Skin/Breast: Denies rash Neurologic Neurologic: Denies paresthesias Physical Exam General General appearance: alert and in no apparent distress Eye Eye exam: Present normal appearance, PERRL and EOMI ENT ENT exam: Present mucous membranes moist and normal external ear exam Expanded ENT Exam External ear exam: Present normal external inspection TM/Canal exam: Bilateral TM: erythema and bulging Nose exam: Absent sinus tenderness Nasal speculum exam: Bilateral: normal Mouth exam: Present normal external inspection; Absent drooling Teeth exam: Present normal inspection Throat exam: Present tonsillar erythema and tonsillomegaly Neck Neck exam: Present normal inspection, full ROM and trachea midline; Absent tenderness, lymphadenopathy or thyromegaly Chest Chest inspection: Present normal inspection and symmetric chest wall rise; Absent tenderness or rash Respiratory Respiratory exam: Present normal lung sounds bilaterally; Absent respiratory distress, wheezes, stridor or accessory muscle use Cardiovascular Cardiovascular exam: Present regular rate, normal rhythm and normal heart sounds Abdominal Exam Abdominal exam: Present soft; Absent distention, tenderness, guarding, rebound or rigidity Extremities Exam Extremities exam: Present normal inspection, full ROM and normal capillary refill; Absent tenderness or calf tenderness Back Exam Back exam: Present normal inspection and full ROM; Absent tenderness Neurological Exam Neurological exam: Present alert and oriented X3 Psychiatric Psychiatric exam: Present normal affect and normal mood Skin Skin exam: Present warm, dry, intact and normal color Lymphatic Lymphatic Findings: no adenopathy Medical Decision Making Medical Records Medical records reviewed: No I reviewed the patient's medical records. Marcelo Inquiry Pt receiving controlled substance: No Vital Signs: 04/29/24 09:54 Temperature 98.0 F Temperature Source Oral Pulse Rate [Radial] 71 Respiratory Rate 18 Blood Pressure [Right Arm] 164/90 H Blood Pressure Mean [Right Arm] 114 Blood Pressure Source [Right Arm] Automatic Cuff Blood Pressure Position [Right Arm] Sitting 02 Sat by Pulse Oximetry 98 Oxygen Delivery Method Room Air
[2024-04-29 10:42] VITALS: BP 164/90; PULSE 71; RESP 18; TEMP 36.7; O2SAT 98
== END 2024-04-29 10:43 | disposition home or self-care (01) ==
PROVIDERS: Emergency Provider Nurse Practitioner Family
DX: U07.1 COVID-19 (principal); R10.819 Abdominal tenderness, unspecified site; K52.9 Noninfective gastroenteritis and colitis, unspecified; R11.2 Nausea with vomiting, unspecified; R05.9 Cough, unspecified
CPT/HCPCS: 87635; 99212; 99214; G0463

== ENCOUNTER 2024-09-09 08:37 | Emergency (ER) | payer SELFPAY ==
--- OUTSIDE RECORDS SUMMARY | 2024-09-09 08:41 | XMS_ITS | Clinical Summary ---
Author Organization [employer] Address [address] [place] [address] Care Team Providers Care Cherry Picker Operator Name Role Phone Melodie Brown MD Primary Care Provider [phone] Allergies Active Allergy Reactions Criticality Noted Date Comments Codeine Hives,Nausea And Vomiting High 2022 Sumatriptan Hives,Nausea And Vomiting High Medications No known medications Active Problems No known active problems Social History Tobacco Use Types Packs/Day Years Used Date Smoking Tobacco: Former Smokeless Tobacco: Never Alcohol Use Standard Drinks/Week Comments Yes 0 (1 standard drink = 0.6 oz pur e alcohol) social Comments Unknown Sex and Gender Information Value Date Recorded Sex Assigned at Not on file Legal Sex Female 1:44 PM CDT Gender Identity Not on file Sexual Orientation Not on file Last Filed Vital Signs Vital Sign Reading Time Taken Comments Blood Pressure 118/75 2022 10:50 AM EST Pulse 65 2022 10:50 AM EST Temperature 36.6 ??C (97.9 ??F) 2022 10:[address] Respiratory Rate 16 2022 10:50 AM EST Oxygen Saturation 97% 2022 10:50 AM EST Inhaled Oxygen Concentration - - Weight 80.7 kg (178 lb) 2022 10:50 AM EST Height 167.6 cm (5' 6 ) 2022 10:50 AM EST Body Mass Index 28.73 2022 10:50 AM EST Plan of Treatment Health Maintenance Due Date Last Done Comments CT Colonography 1977 Colonoscopy 1977 Colorectal Cancer Screening 1977 FOBT/FIT 1977 Fit-DNA (Cologuard) 1977 Sigmoidoscopy 1977 Depression Screening (12+) 1989 Tobacco Cessation Counseling and Screening (12+) 1989 DTAP/TDAP/TD VACCINES (1 - Tdap) 1996 Pap Smear 1998 Breast Cancer Screening 2017 COVID-19 VACCINE ( season) 2024, 12/31/2020 Influenza Vaccine (#1) 2024 07/30/2021 Insurance [facility] Care Teams Cherry Picker Operator Relationship Specialty Start Date End Date Melodie Brown MD [address] [place] [id number] PCP - General Family Medicine 12/04/22
--- OUTSIDE RECORDS SUMMARY | 2024-09-09 08:41 | XMS_ITS | Encounter Summary ---
Author Organization [employer] Address [address] [place] [address] Care Team Providers Care Intern Name Role Phone Melodie Brown MD Primary Care Provider Encounter Details Date Type Department Care Team (Late st Contact Info) Description 2022 Orders Only [facility] Imaging [address] [place] [address] Melodie Brown MD [address] [facility] [address] [place] [address] Social History Tobacco Use Types Packs/Day Years Used Date Smoking Tobacco: Former Smokeless Tobacco: Never Alcohol Use Standard Drinks/Week Comments Yes 0 (1 standard drink = 0.6 oz pur e alcohol) social Comments Unknown Sex and Gender Information Value Date Recorded Sex Assigned at Not on file Legal Sex Female 1:44 PM CDT Gender Identity Not on file Sexual Orientation Not on file COVID-19 Exposure Response Date Recorded In the last 10 days, have yo u been in contact with someone who was confirmed or suspected to have Coronavirus/COVID-19? No / Unsure 2022 10:47 AM EST documented as of this encounter Plan of Treatment Not on file documented as of this encounter Visit Diagnoses Not on filedocumented in this encounter Care Teams Intern Relationship Specialty Start Date End Date Melodie Brown MD [address] [place] [address] PCP - General Family Medicine 12/04/22 documented as of this encounter
--- OUTSIDE RECORDS SUMMARY | 2024-09-09 08:41 | XMS_ITS | Encounter Summary ---
Author Organization [facility] Address [address] [place] [address] Care Team Providers Care Rural Carrier Name Role Phone Melodie Brown MD Primary Care Provider [phone] Encounter Details Date Type Department Care Team (Latest Contact Info) Description 2022 Travel Social History Tobacco Use Types Packs/Day Years [...] on filedocumented in this encounter Care Teams Rural Carrier Relationship Specialty Start Date End Date Melodie Brown MD [address] [place] [address] PCP - General Family Medicine 12/04/22 documented as of this encounter
--- OUTSIDE RECORDS SUMMARY | 2024-09-09 08:41 | XMS_ITS | Referral Summary ---
Author Organization [facility] Address [address] [place] [address] Care Team Providers Care Carburetor Expert Name Role Phone Melodie Brown MD Primary Care Provider [phone] Allergies Active Allergy Reactions Criticality Noted Date [...] 2022 10:50 AM EST Plan of Treatment Not on file [facility] Care Teams Carburetor Expert Relationship Specialty Start Date End Date Melodie Brown MD [address] [place] [address] PCP - General Family Medicine 12/04/22
--- OUTSIDE RECORDS SUMMARY | 2024-09-09 08:42 | XMS_ITS | Encounter Summary ---
Author Organization [facility] Address [address] [place] [address] Care Team Providers Care Chemist Water Purification Name Role Phone Unavailable Primary Care Provider Unavailabl e Encounter Details Date Type Department Care Team (Late st Contact Info) Description 11/13/2014 [facility] Vitals Encounter [facility] [address] [place] [address] ProviderJazmin MD [address] [place] [address] Social History Tobacco Use Types Packs/Day Years Used Date Smoking Tobacco: Never Assessed Comments Unknown Sex and Gender Information Value Date Recorded Sex Assigned at Not on file Legal Sex Female 6:32 PM EDT Gender Identity Not on file Sexual Orientation Not on file documented as of this encounter Last Filed Vital Signs Vital Sign Reading Time Taken Comments Blood Pressure - - Pulse - - Temperature - - Respiratory Rate - - Oxygen Saturation - - Inhaled Oxygen Concentration - - Weight 75.8 kg (167 lb) 11/13/2014 12:57 PM EST Height 170.2 cm (5' 7 ) 11/13/2014 12:57 PM EST Body Mass Index 26.16 11/13/2014 12:57 PM EST documented in this encounter Plan of Treatment Not on file documented as of this encounter Visit Diagnoses Not on filedocumented in this encounter
--- OUTSIDE RECORDS SUMMARY | 2024-09-09 08:42 | XMS_ITS | Encounter Summary ---
Author Organization [facility] Address [address] [place] [address] Care Team Providers Care Director Drug Name Role Phone Leonardo García MD Primary Care Provider [phone] Reason for Referral * Diagnostic Medical (Routine) - Closed Specialty Diagnoses / Procedures Referred By [facility] Referred To Contact Radiology Diagnoses GERD with esophagitis Procedures FL Esophagram Complete FL video swallow w speech Fanny Weaver MD Phone: tel: fax: [address] [address] Phone: tel: Referral ID Status Reason Start Date Expiration Date Visits Re quested Visits Authorized [id number] Closed 02/09/2020 02/08/2021 1 1 Reason for Visit * Diagnostic Medical (Routine) - Closed Specialty Diagnoses / Procedures [facility] Referred To Contact Radiology Diagnoses GERD with esophagitis Procedures FL Esophagram Complete FL video swallow w speech Fanny Weaver MD Phone: tel: fax: [address] [address] Phone: tel: Referral ID Status Reason Start Date Expiration Date Visits Re quested Visits Authorized [id number] Closed 02/09/2020 02/08/2021 1 1 Encounter Details Date Type Department Care Team (Late st Contact Info) Description 02/17/2020 2:00 PM EDT - 02/17/2020 11:59 PM EDT Hospital Encounter [facility] [address] [place] [address] Fanny Weaver MD [address] [place] [address] GERD with esophagitis Discharge Disposition: Home or Self Care Social History Tobacco Use Types Packs/Day Years Used Date Smoking Tobacco: Every Day Cigarettes 1 28 Smokeless Tobacco: Never Alcohol Use Standard Drinks/Week Comments Never 0 (1 standard drink = 0.6 oz pur e alcohol) AUDIT-C Answer Date Recorded Q1: How often do you have a drink containing alc ohol? 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 albuterol sulfate HFA 108 (90 Base) MCG/ACT inhaler Inhale 2 puffs Every 4 (Four) Hours As Needed for Wheezing. amitriptyline (ELAVIL) 100 MG tablet Take 1 tablet by mouth Every Night. FLUoxetine (PROzac) 20 MG capsule Take 2 capsules by mouth Daily. hydrOXYzine pamoate (VISTARIL) 25 MG capsule Take 25 mg by mouth 3 (Three) Times a Day As Needed for Itching. ipratropium-albu terol (DUO-NEB) 0.5-2.5 mg/3 ml nebulizer Take 3 mL by nebulization Every 4 (Four) Hours As Needed for Wheezing. levothyroxine (SYNTHROID, LEVOTHROID) 50 MCG tablet Take 50 mcg by mouth Daily. montelukast (SINGULAIR) 10 MG tablet Take 10 mg by mouth Every Night. nystatin (MYCOSTATIN) 404874 UNIT/ML suspension Swish and swallow 5 mL 4 (Four) Times a Day. pantoprazole (PROTONIX) 40 MG EC tablet Take 1 tablet by mouth Every 12 (Twelve) Hours. 60 tablet 12 02/06/2020 propranolol (INDERAL) 20 MG tablet Take 1 tablet by mouth 3 (Three) Times a Day. topiramate (TOPAMAX) 100 MG tablet Take 100 mg by mouth 2 (Two) Times a Day. fluticasone (FLOVENT HFA) 220 MCG/ACT inhaler Inhale 1 puff 2 (Two) Times a Day. 2 puffs twice daily, with spacer 1 inhaler 12 02/06/2020 0 documented as of this encounter Plan of Treatment Not on file documented as of this encounter Procedures Procedure Name Priority Date/Time Associated Diagnosis Comments FL ESOPHAGRAM SINGLE CONTRAST Routine 02/17/2020 2:36 PM EDT GERD with esophagitis documented in this encounter Results * FL Esophagram Complete (02/17/2020 2:36 PM EDT) Anatomical Region Laterality Modality Head and Neck N/A Radio Fluoroscop y 02/17/2020 3:12 PM EDT Impressions 02/20/2020 10:25 AM EDT Mild gastroesophageal reflux to the level of the midesophagus. ?? This report was finalized on 02/20/2020 10:[address] Mike Cagle MD. Narrative 02/20/2020 10:25 AM EDT EXAMINATION: FL ESOPHAGRAM COMPLETE SINGLE-CONTRAST- INDICATION: To look for reflux; K21.2-[id number] reflux disease with esophagitis TECHNIQUE: 38 seconds of fluoroscopic time was used for this exam. 10 associated fluoroscopic series were saved. Strike Out Machine Operator imaging reveals no gross abnormalities. COMPARISON: NONE FINDINGS: Under fluoroscopic observation, the patient ingested thin barium. The oral phase of deglutition appeared normal. The esophageal mucosa appeared grossly normal. There was mild gastroesophageal reflux to the level of the midesophagus. There was no evidence of a focal esophageal stricture. Examination of the stomach demonstrated grossly normal gastric mucosa and gastric folds. Procedure Note Dai Puri PA - 02/20/2020 EXAMINATION: FL ESOPHAGRAM COMPLETE SINGLE-CONTRAST- INDICATION: To look for reflux; K21.4-[id number]-[id number] reflux disease with esophagitis TECHNIQUE: 38 seconds of fluoroscopic time was used for this exam. 10 associated fluoroscopic series were saved. Strike Out Machine Operator imaging reveals no gross abnormalities. COMPARISON: NONE FINDINGS: Under fluoroscopic observation, the patient ingested thin barium. The oral phase of deglutition appeared normal. The esophageal mucosa appeared grossly normal. There was mild gastroesophageal reflux to the level of the midesophagus. There was no evidence of a focal esophageal stricture. Examination of the stomach demonstrated grossly normal gastric mucosa and gastric folds. IMPRESSION: Mild gastroesophageal reflux to the level of the midesophagus. This report was finalized on 02/20/2020 10:[address] Mike Cagle MD. Fanny Weaver MD IMG FLUOROSCOPY ORDERABL ES Final Result documented in this encounter Visit Diagnoses Diagnosis GERD with esophagitis documented in this encounter Administered Medications Inactive Administered Medications - up to 3 most recent administrations Medication Order MAR Action Action Date Dose Rate Site barium sulfate (E-Z-PAQUE) 96 % oral suspension reconstituted suspension 183 mL 183 mL, Oral, Once in Imaging, On Thu02/17/20 at 1439, For 1 dose, {BKC} Mix with water according to package insert. Shake well before administration. Given 02/17/2020 2:37 PM EDT 183 mL documented in this encounter Care Teams Director Drug Relationship Specialty Start Date End Date Leonardo García MD [address] [place], [place] [id number] PCP - General Internal Medicine 02/06/20 02/23/20 documented as of this encounter
--- OUTSIDE RECORDS SUMMARY | 2024-09-09 08:42 | XMS_ITS | Encounter Summary ---
Author Organization [facility] Address [address] [place] [address] Care Team Providers Care Peanut Cleaner Name Role Phone Unavailable Primary Care Provider Unavailabl e Encounter Details Date Type Department Care Team (Late st Contact Info) Description 03/03/2015 3:03 AM EDT - 03/03/2015 5:45 AM EDT Emergency [facility] EMERGENCY DEPARTMENT [address] [place] [address] [place] [address] [place] [address] [place] [address] Social History Tobacco Use Types Packs/Day Years Used Date Smoking Tobacco: Never Assessed Comments Unknown Sex and Gender Information Value Date Recorded Sex Assigned at Not on file Legal Sex Female 11:51 AM EDT Gender Identity Not on file Sexual Orientation Not on file documented as of this encounter ED Notes * Interface, See Report - 03/03/2015 3:03 AM EDT Addenda for SHERLEY HURT VisitID: [id number] Date: 03/03/2015 03/03/2015 5:41 JOSE CARLOS query complete. Treatment plan to include limited course of prescribed controlled substance. Risks including addiction, benefits, and alternatives presented to patient. (Electronically signed by Jaxon Paredes MD - 03/03/2015 5:41) * Interface, See Report - 03/03/2015 3:03 AM EDT Clinical Report - Physicians/Mid Levels [facility] Emergency Department [address] [facility], [place] [id number] 03/03/2015 [id number] Sex[facility] F : 1975 Age: 39y Time Seen: 03:02. Arrived- By private vehicle. Historian- patient. HISTORY OF PRESENT ILLNESS Chief Complaint: ABDOMINAL PAIN. Modifying factors. Not worsened by anything. Not relieved by anything. It is described as sharp and stabbing and it is described as located in the right upper quadrant and epigastric area and radiating to the upper back. This started today and is still present and worsening. It was gradual in onset. The patient has had nausea and vomiting. No diarrhea. (The patient reports that she awoke today and noted some epigastric abdominal pain that she thought was gas, but reports it has worsened and now has RUQ pain that radiates through to the back. The patient does report a hx of partial colectomy on 01/08/15 secondary to left side of the colon not working .). Similar symptoms previously: None. Recent medical care: The patient was seen recently by a health care provider. REVIEW OF SYSTEMS No constipation, black stools, hematemesis, difficulty with urination or bloody stools. No fever, headache, chest pain, difficulty breathing or cough. No joint pain, skin rash or chills. All systems otherwise negative, except as recorded above. PAST HISTORY See nurses notes. GI disease. SOCIAL HISTORY Smoker- current status unknown. No alcohol use or drug use. No recent travel. Is a local resident. FAMILY HISTORY Negative. ADDITIONAL NOTES The nursing notes have been reviewed. PHYSICAL EXAM Vital Signs: 03/03/2015 02:59 BP: 140/79. HR: 79. RR: 16. O2 saturation: 98%. Temp: 98.2 F. Have been reviewed and appear to be correct. Appearance: Alert. Oriented X3. No acute distress. Appears to be in pain. Eyes: Pupils equal, round and reactive to light. ENT: Pharynx normal. CVS: Normal heart rate and rhythm. Heart sounds normal. Pulses normal. Respiratory: No respiratory distress. Breath sounds normal. Abdomen: Soft. Moderate tenderness in the right upper quadrant (to deep palpation). No guarding or rebound tenderness. No mass. Obese. No rebound tenderness or guarding. Back: No CVA tenderness. Skin: Skin warm and dry. Normal skin color. No rash. Normal skin turgor. Extremities: Extremities exhibit normal ROM. No lower extremity edema. Neuro: Oriented X 3. Psych: Mood and affect normal. Speech normal. LABS, X-RAYS, AND EKG CT Abdomen - Pelvis: Probable pancreatic cyst o/w no emergent findings. Abdomen - pelvic CT performed with IV contrast. The study was independently viewed by me and interpreted by the radiologist and contemporaneously by me. Laboratory Tests: Laboratory tests have been ordered, with results reviewed and considered in the medical decision making process (No emergent lab findings.). CT ABD/PEL w IV Cont: (DL: 03/03/2015 05:18)( MsgRcvd 03/03/2015 05:18) Final results Exam Report EXAM- CT Abdomen and Pelvis With Intravenous Contrast. CLINICAL HISTORY- 39 years old, female- Abdominal painchief complaint- Abdominal pain. This started today and is still present and worsening. It was gradual in onset. It is described as sharp and stabbing and it is described as located in the right upper quadrant and epigastric area and radiating to the upper back. Modifying factors. Not worsened by anything. Not relieved by anything. The patient has had nausea and vomiting. No diarrhea. (the patient reports that she awoke today and noted some epigastric abdominal pain that she thought was gas, but reports it has worsened and now has ruq pain that radiates through to the back. The patient does report a HX of partial colectomy on 01/08/15 secondary to left side of the colon not working . ). TECHNIQUE- Axial computed tomography images of the abdomen and pelvis with intravenous contrast. CONTRAST- 95 mL of [id number] administered intravenously. COMPARISON- None. FINDINGS- Lower thorax- Mild dependent atelectasis. ABDOMEN- Liver- Unremarkable. No mass. Gallbladder and bile ducts- Unremarkable. No calcified stones. No ductal dilation. Pancreas- Small round hypodense pancreatic tail lesion measures 4.4 x 4.4 mm (axial series 2, image 23) too small to fully characterize by CT, but statistically likely represents cyst. Spleen- Unremarkable. No splenomegaly. Adrenals- Unremarkable. No mass. Kidneys and ureters- Unremarkable. No hydronephrosis. No solid mass. PELVIS- Bladder- Unremarkable. No mass. Reproductive- Unremarkable as visualized. Appendix- No findings to suggest acute appendicitis. ABDOMEN and PELVIS- Stomach and bowel- Partial colectomy. Small bowel unremarkable. Stomach unremarkable. Peritoneum- No significant free fluid. No free air. Abdominal/pelvic wall- Midline, inferior anterior, abdominal wall, surgical scar. No hernia. Lymph nodes- Unremarkable. No enlarged lymph nodes. Vasculature- Multiple, small, round, bilateral, inferior pelvic calcifications likely represent phleboliths. Mild aortoiliac atherosclerotic calcification. No aortic aneurysm. Bones- Bilateral L5 pars interarticularis defects. No acute fracture. IMPRESSION- 1. No CT evidence of acute abdominal/pelvic disease. 2. Partial colectomy. 3. Small round hypodense pancreatic tail lesion measures 4.4 x 4.4 mm too small to fully characterize by CT, but statistically likely represents cyst. Reading Radiologist- KEENAN HERNADEZ Releasing Radiologist- KEENAN HERNADEZ Released Date Time- 03/03/15 0518 Branch Operations Coordinator- Akil Read By KEENAN HERNADEZ Released By KEENAN HERNADEZ Urinalysis (UA ) wo Micro: (DL: 03/03/2015 03:09)( MsgRcvd 03/03/2015 03:56) Canceled Urinalysis w/Culture if Indicated: (DL: 03/03/2015 03:04)( MsgRcvd 03/03/2015 04:01) Final results Urine Microscopic not indicated. Test Result Flag Units (Reference) Color Yellow Appearance Clear pH 5.5 (4.5-8.0) Spec [place] 1.029 (1.001-1.030) Glucose Negative mg/dL (Negative) Ketones Negative (Negative) Bilirubin Negative (Negative) Blood Negative (Negative) Protein,Urine Negative mg/dL (Negative) This test was previously referred to as Albumin Nitrates Negative (Negative) Leuk Esterase Negative (Negative) Urobilinogen 1.0 mg/dL (0.2-1.0) Amylase: (DL: 03/03/2015 03:34)( [facility] 03/03/2015 03:55) Final results Test Result Flag Units (Reference) Amylase 50 Units/L (30-118) Lipase: (DL: 03/03/2015 03:34)( [facility] 03/03/2015 03:55) Final results Test Result Flag Units (Reference) Lipase 32 Units/L (6-51) CMP: (DL: 03/03/2015 03:34)( [facility] 03/03/2015 03:55) Final results Test Result Flag Units (Reference) Glucose 108 H mg/dL (70-100) BUN 9 mg/dL (9-23) Creatinine 0.8 mg/dL (0.6-1.3) Sodium 138 mmol/L (132-146) Potassium 3.7 mmol/L (3.5-5.5) Chloride 106 mmol/L (99-109) Carbon Dioxide 27 mmol/L (20-31) Calcium 9.0 mg/dL (8.7-10.4) Alkaline Phos 72 Units/L (25-100) AST 14 Units/L (0-33) ALT 13 Units/L (7-40) Bilirubin,Total 0.2 L mg/dL (0.3-1.2) Total Protein 7.2 g/dL (5.7-8.2) Albumin 4.4 g/dL (3.2-4.8) Ext. MDRD GFR 94 ml/min/1.732 National Kidney Foundation Guidelines Stage Description GFR 1 Normal or High 90+ 2 Mild decrease 60-89 3 Moderate decrease 30-59 4 Severe decrease 15-29 5 Kidney failure <15 Anion Gap 5 mmol/L (3-11) CBC w Auto Diff: (DL: 03/03/2015 03:34)( MsgRcvd 03/03/2015 03:39) Final results Test Result Flag Units (Reference) WBC 9.90 K/mcL (3.50-10.80) RBC 4.12 M/mcL (3.89-5.14) Hemoglobin 11.8 g/dL (11.5-15.5) Hematocrit 36.3 % (34.5-44.0) MCV 88.1 fL (80.0-99.0) MCH 28.6 pg (27.0-31.0) MCHC 32.5 g/dL (32.0-36.0) RDWCV 13.1 % (11.3-14.5) Platelet 257 K/mcL (150-450) Abs Neutrophil 6.46 K/mcL (1.50-8.30) Abs Lymph 2.60 K/mcL (0.60-4.80) Abs [place] 0.59 K/mcL (0.00-1.00) Abs Eos 0.20 K/mcL (0.10-0.30) Abs Baso 0.04 K/mcL (0.00-0.20) Neutrophils 65.2 % (41.0-71.0) Lymphocytes 26.3 % (24.0-44.0) Monocytes 6.0 % (0.0-12.0) Eosinophils 2.0 % (0.0-3.0) Basophils 0.4 % (0.0-1.0) Immature Gran 0.1 % (0.0-0.6) . PROGRESS AND PROCEDURES Course of Care: 05:38 03/03/15. Patient is stable. Symptoms much better. Patient counseled in person regarding the patient's stable condition, test results, diagnosis and need for follow-up. Findings with plan discussed. Abdomen remained nonsurgical. Patient has been told that she has GB issues. I advised her on the pancreatic findings and that she needs to f/u with Dr. Price to monitor the pancreas and for further evaluation of the GB. The patient understands and agrees with the plan. Old ED and inpatient records reviewed. Disposition: Discharged home in stable and improved condition. Condition: stable. A medical screening exam was performed. CLINICAL IMPRESSION Acute right upper quadrant abdominal pain. Probable biliary colic. INSTRUCTIONS No restrictions to activity. Drink plenty of fluids. Avoid fatty and fried/greasy foods. Warnings: Further evaluation is necessary. GENERAL WARNINGS: Return or contact your physician immediately if your condition worsens or changes unexpectedly, if not improving as expected, or if other problems arise. Prescription Medications: Zofran (orally disintegrating tablets) 4 mg: take 1 orally every 6 hours as needed for nausea. Dispense fifteen (15). No refill. Generic substitute OK. Ultracet 37.5 mg / 325 mg tablets: take 2 orally every 6 hours as needed for pain. Dispense twenty (20). No refills. Generic substitute OK. Follow-up: Return to the emergency department as needed. Understanding of the discharge instructions verbalized by patient. Follow-up with: Brady Price MD, Colon/Rectal Surgery, , [address] [place] [address] Follow up even if well. Call for the next available appointment. (Electronically signed by Jaxon Paredes MD 03/03/2015 5:41) documented in this encounter Plan of Treatment Not on file documented as of this encounter Procedures Procedure Name Priority Date/Time Associated Diagnosis Comments CT ABDOMEN PELVIS W CONTRAST Routine 03/03/2015 4:42 AM EDT CBC AND DIFFERENTIAL Routine 03/03/2015 3:34 AM EDT LIPASE Routine 03/03/2015 3:34 AM EDT AMYLASE Routine 03/03/2015 3:34 AM EDT COMPREHENSIVE METABOLIC PANEL Routine 03/03/2015 3:34 AM EDT URINALYSIS W/ CULTURE IF INDICATED Routine 03/03/2015 3:04 AM EDT documented in this encounter Results * CT ABDOMEN PELVIS WITH CONTRAST (03/03/2015 4:42 AM EDT) Anatomical Region Laterality Modality Body N/A Computed Tomogra phy 03/03/2015 4:42 AM EDT Narrative 03/03/2015 5:18 AM EDT EXAM: ??CT Abdomen and Pelvis With Intravenous Contrast. CLINICAL HISTORY: ??39 years old, female; Abdominal painchief complaint: ??Abdominal pain. ??This started today and is still present and worsening. ?? It was gradual in onset. ?? It is described as sharp and stabbing and it is described as located in the right upper quadrant and epigastric area and radiating to the upper back. ?? Modifying factors. ??Not worsened by anything. ??Not relieved by anything. ?? The patient has had nausea and vomiting. ?? No diarrhea. (the patient reports that she awoke today and noted some epigastric abdominal pain that she thought was gas, ??but reports it has worsened and now has ruq pain that radiates through to the back. ??The patient does report a HX of partial colectomy on 01/08/15 secondary to left side of the colon not working . ). TECHNIQUE: ??Axial computed tomography images of the abdomen and pelvis with intravenous contrast. CONTRAST: ??95 mL of administered intravenously. COMPARISON: ??None. FINDINGS: ??Lower thorax: ??Mild dependent atelectasis. ABDOMEN: ??Liver: ??Unremarkable. ??No mass. ??Gallbladder and bile ducts: ??Unremarkable. ??No calcified stones. ??No ductal dilation. ??Pancreas: ??Small round hypodense pancreatic tail lesion measures 4.4 x 4.4 mm (axial series 2, image 23) too small to fully characterize by CT, but statistically likely represents cyst. ?Spleen: ??Unremarkable. ??No splenomegaly. ??Adrenals: ??Unremarkable. ??No mass. ??Kidneys and ureters: ??Unremarkable. ??No hydronephrosis. ??No solid mass. PELVIS: ??Bladder: ??Unremarkable. ??No mass. ??Reproductive: ??Unremarkable as visualized. ??Appendix: ??No findings to suggest acute appendicitis. ABDOMEN and PELVIS: ??Stomach and bowel: ??Partial colectomy. ??Small bowel unremarkable. ?? Stomach unremarkable. ??Peritoneum: ??No significant free fluid. ??No free air. ??Abdominal/pelvic wall: ??Midline, inferior anterior, abdominal wall, surgical scar. ??No hernia. ??Lymph nodes: ??Unremarkable. ??No enlarged lymph nodes. ??Vasculature: ??Multiple, small, round, bilateral, inferior pelvic calcifications likely represent phleboliths. ??Mild aortoiliac atherosclerotic calcification. ??No aortic aneurysm. ??Bones: ??Bilateral L5 pars interarticularis defects. ??No acute fracture. IMPRESSION- ? 1. No CT evidence of acute abdominal/pelvic disease. 2. Partial colectomy. 3. Small round hypodense pancreatic tail lesion measures 4.4 x 4.4 mm too small to fully characterize by CT, but statistically likely represents cyst. ? Reading Radiologist- KEENAN HERNADEZ ? Releasing Radiologist- KEENAN HERNADEZ ? Released Date Time- 03/03/15 0518 ? Branch Operations Coordinator- Mayda. Procedure Note Interface, See Report / eKenan Hernadez MD - 07/17/2015 EXAM: CT Abdomen and Pelvis With Intravenous Contrast. CLINICAL HISTORY: 39 years old, female; Abdominal painchief complaint: Abdominal pain. This started today and is still present and worsening. It was gradual in onset. It is described as sharp and stabbing and it is described as located in the right upper quadrant and epigastric area and radiating to the upper back. Modifying factors. Not worsened by anything. Not relieved by anything. The patient has had nausea and vomiting. No diarrhea. (the patient reports that she awoke today and noted some epigastric abdominal pain that she thought was gas, but reports it has worsened and now has ruq pain that radiates through to the back. The patient does report a HX of partial colectomy on 01/08/15 secondary to left side of the colon not working . ). TECHNIQUE: Axial computed tomography images of the abdomen and pelvis with intravenous contrast. CONTRAST: 95 mL of [id number] administered intravenously. COMPARISON: None. FINDINGS: Lower thorax: Mild dependent atelectasis. ABDOMEN: Liver: Unremarkable. No mass. Gallbladder and bile ducts: Unremarkable. No calcified stones. No ductal dilation. Pancreas: Small round hypodense pancreatic tail lesion measures 4.4 x 4.4 mm (axial series 2, image 23) too small to fully characterize by CT, but statistically likely represents cyst. Spleen: Unremarkable. No splenomegaly. Adrenals: Unremarkable. No mass. Kidneys and ureters: Unremarkable. No hydronephrosis. No solid mass. PELVIS: Bladder: Unremarkable. No mass. Reproductive: Unremarkable as visualized. Appendix: No findings to suggest acute appendicitis. ABDOMEN and PELVIS: Stomach and bowel: Partial colectomy. Small bowel unremarkable. Stomach unremarkable. Peritoneum: No significant free fluid. No free air. Abdominal/pelvic wall: Midline, inferior anterior, abdominal wall, surgical scar. No hernia. Lymph nodes: Unremarkable. No enlarged lymph nodes. Vasculature: Multiple, small, round, bilateral, inferior pelvic calcifications likely represent phleboliths. Mild aortoiliac atherosclerotic calcification. No aortic aneurysm. Bones: Bilateral L5 pars interarticularis defects. No acute fracture. IMPRESSION- 1. No CT evidence of acute abdominal/pelvic disease. 2. Partial colectomy. 3. Small round hypodense pancreatic tail lesion measures 4.4 x 4.4 mm too small to fully characterize by CT, but statistically likely represents cyst. Reading RadiologistRosa HERNADEZ Releasing Radiologist- KEENAN HERNADEZ Released Date Time- 03/03/15 0518 Branch Operations Coordinator- Akil Jaxon Paredes MD IMG CT ORDERABLES Final R esult * Amylase (03/03/2015 3:34 AM EDT) Amylase 50 30 - 118 Units/L [facility] Blood specimen (specimen) 03/03/2015 3:34 AM EDT [facility] - 03/03/2015 3:55 AM EDT Specimen Type: Blood Jaxon Paredes MD LAB BLOOD ORDERABLES Luna l Result Performing Organization Address [facility]/ZIP Co de Phone Number [facility] [address] [place] [address], * Lipase (03/03/2015 3:34 AM EDT) Lipase 32 6 - 51 Units/L [facility] Blood specimen (specimen) 03/03/2015 3:34 AM EDT [facility] - 03/03/2015 3:55 AM EDT Specimen Type: Blood Jaxon Paredes MD LAB BLOOD ORDERABLES Luna l Result Performing Organization Address [facility] Co de Phone Number [facility] [address] [place] [address], * (ABNORMAL) Comprehensive metabolic panel (03/03/2015 3:34 AM EDT) Glucose 108(H) 70 - 100 mg/dL [facility] BUN 9 9 - 23 mg/dL [facility] Creatinine 0.8 0.6 - 1.3 mg/dL [facility] Sodium 138 132 - 146 mmol/L [facility] Potassium 3.7 3.5 - 5.5 mmol/L [facility] Chloride 106 99 - 109 mmol/L [facility] CO2 27 20 - 31 mmol/L [facility] Calcium 9.0 8.7 - 10.4 mg/dL [facility] Alkaline Phosphatase 72 25 - 100 Units/L [facility] AST (SGOT) 14 0 - 33 Units/L [facility] ALT (SGPT) 13 7 - 40 Units/L [facility] Total Bilirubin 0.2(L) 0.3 - 1.2 mg/dL [facility] Total Protein 7.2 5.7 - 8.2 g/dL [facility] Albumin 4.4 3.2 - 4.8 g/dL [facility] eGFR 94 ml/min/1.7 32 [facility] Comment: DF by IF @ 03/03/2015 03:55 ?? National Kidney Foundation Guidelines ?Stage ? Description ?GFR ?1 ?Normal or High ? 90+ ?2 ?Mild decrease ? 60-89 ?3 ?Moderate decrease ?30-59 ?4 ?Severe decrease ?15-29 ?5 ?Kidney failure ?<15 Anion Gap 5 3 - 11 mmol/L [facility] Blood specimen (specimen) 03/03/2015 3:34 AM EDT Narrative [facility] - 03/03/2015 3:55 AM EDT Specimen Type: Blood us Jaxon Paredes MD LAB BLOOD ORDERABLES Luna garcia Result [facility] [address] [place] [address], * CBC and Differential (03/03/2015 3:34 AM EDT) WBC 9.90 3.50 - 10.80 K/[facility] RBC 4.12 3.89 - 5.14 /[facility] Hemoglobin 11.8 11.5 - 15.5 g/dL [facility] Hematocrit 36.3 34.5 - 44.0 % [facility] MCV 88.1 80.0 - 99.0 fL [facility] MCH 28.6 27.0 - 31.0 pg [facility] MCHC 32.5 32.0 - 36.0 g/dL [facility] RDW-CV 13.1 11.3 - 14.5 % [facility] Platelets 257 150 - 450 [facility] Neutrophils Absolute 6.46 1.50 - 8.30 [facility] Lymphocytes Absolute 2.60 0.60 - 4.80 [facility] Monocytes Absolute 0.59 0.00 - 1.00 [facility] Eosinophils Absolute 0.20 0.10 - 0.30 [facility] Basophils Absolute 0.04 0.00 - 0.20 [facility] Neutrophil Rel % 65.2 41.0 - 71.0 % [facility] Lymphocyte Rel % 26.3 24.0 - 44.0 % [facility] Monocyte Rel % 6.0 0.0 - 12.0 % [facility] Eosinophil Rel % 2.0 0.0 - 3.0 % [facility] Basophil Rel % 0.4 0.0 - 1.0 % [facility] Immature Granulocyte Rel % 0.1 0.0 - 0.6 % [facility] Blood specimen (specimen) 03/03/2015 3:34 AM EDT Narrative [facility] - 03/03/2015 3:39 AM EDT Specimen Type: Blood Jaxon Paredes MD LAB BLOOD ORDERABLES Luna l Result Performing Organization Address [facility]/[place] [address], * Urinalysis w/Culture if Indicated (03/03/2015 3:04 AM EDT) Color, UA Yellow [facility] Appearance, UA Clear [facility] pH, UA 5.5 4.5 - 8.0 [facility] Specific [place], UA 1.029 1.001 - 1.030 [facility] Glucose, UA Negative NEGATIVE mg/dL [facility] Ketones, UA Negative NEGATIVE [facility] Bilirubin, UA Negative NEGATIVE [facility] Blood, UA Negative NEGATIVE [facility] Protein, UA Negative NEGATIVE mg/dL [facility] Comment: DF by IF @ 03/03/2015 04:01 This test was previously referred to as Albumin Nitrite, UA Negative NEGATIVE [facility] Leukocytes, UA Negative NEGATIVE [facility] Urobilinogen, UA 1.0 0.2 - 1.0 mg/dL [facility] Urine specimen (specimen) 03/03/2015 3:04 AM EDT Narrative [facility] - 03/03/2015 4:01 AM EDT Specimen Type: Urine Specimen Source: Urine, Clean Ca Urine Microscopic not indicated. Jaxon Paredes MD URINE ORDERABLES Final Re sult Performing Organization Address [facility]/[place] [address], documented in this encounter Visit Diagnoses Not on filedocumented in this encounter
--- OUTSIDE RECORDS SUMMARY | 2024-09-09 08:42 | XMS_ITS | Encounter Summary ---
Author Organization [facility] Address [address] [place] [address] Care Team Providers Care Hearing Impaired Teacher Name Role Phone Melodie Brown MD Primary Care Provider [phone] Reason for Visit * Reason Comments Abdominal Pain Encounter Details Date Type Department Care Team (Late st Contact Info) Description 2022 10:32 AM EST - 2022 1:07 PM EST Emergency [facility] Emergency Department [address] [place] [address] Discharge Disposition: ED Dismiss - Left After Triage Social History Tobacco Use Types Packs/Day Years [...] AM EST documented as of this encounter Last Filed [...] Mass Index 28.73 2022 10:50 AM EST documented in this encounter ED Notes * Irina Romero RN - 2022 10:44 AM EST Pt presents to the ED at the request of PCP due to possible bowel blockage. Pt reports on scant amount of watery BM x 3 weeks. Passing gas. Pt has a hx of colon resection ~ 6 years. abd pain 05/14 [employer] documented in this encounter Plan of Treatment Not on file documented as of this encounter Visit Diagnoses Not on filedocumented in this encounter Active and Recently Administered Medications Care Teams Hearing Impaired Teacher Relationship Specialty Start Date End Date Melodie Brown MD [address] [place] [id number] PCP - General Family Medicine 12/04/22 documented as of this encounter
--- OUTSIDE RECORDS SUMMARY | 2024-09-09 08:42 | XMS_ITS | Encounter Summary ---
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 Not on file Not on file documented as of this encounter Plan of Treatment Not on file documented as of this encounter Procedures Procedure Name Priority Date/Time Associated Diagnosis Comments COVID PRE-OP / PRE-PROCEDURE SCREENING ORDER (NO ISOLATION) Routine 02/14/2020 8:17 AM EDT ZZZCOVID-19 PCR, [facility], PRESS SERVICE READER SWAB IN [facility] VIRAL TRANSPORT MEDIA/ORAL SWISH 24-30 HR TAT Routine 02/14/2020 8:17 AM EDT documented in this encounter Results * CORONAVIRUS (COVID-19),RT-PCR,[facility], [employer] SALINE [facility]IA - Swab, Nasopharynx (02/14/2020 8:17 AM EDT) [facility] Reference Lab Report 02/15/2020 3:56 PM EDT [facility] Comment:See scanned report COVID19 Not Detected Not Detected - Ref. Range 02/15/2020 3:56 PM EDT [facility] Swab Nasopharyngeal structure / Unknown Collection / Unknown 02/14/2020 8:17 AM EDT 02/14/2020 8:42 PM EDT Leonardo Wakefield MD MICROBIOLOGY - GENERAL ORDERA BLES Final Result [facility] documented in this encounter Visit Diagnoses Not on filedocumented in this encounter Additional Health Concerns Infection Onset Date Last Indicated Resolved Time COVID Screen (preop/placement) 02/14/2020 02/14/2020 02/15/2020 3:56 PM EDT documented as of this encounter Care Teams Certified Ophthalmic Technologist Relationship Specialty Start Date End Date Leonardo García MD [address] [place] [address] PCP - General Internal Medicine 02/06/20 02/23/20 documented as of this encounter
--- OUTSIDE RECORDS SUMMARY | 2024-09-09 08:42 | XMS_ITS | Encounter Summary ---
Author Organization [facility] Address [address] [place] [address] Care Team Providers Care Mixing Engineer Name Role Phone Unavailable Primary Care Provider Unavailabl e Encounter Details Date Type Department Care Team (Late st Contact Info) Description 01/08/2015 10:48 AM EDT - 01/11/2015 6:30 PM EDT Hospital Encounter [address] [place] [id number] Shikha Sage MD [address] [place] [address] Social History Tobacco Use Types Packs/Day Years [...] Procedure Name Priority Date/Time Associated Diagnosis Comments HEMOGLOBIN AND HEMATOCRIT, BLOOD Routine 01/09/2015 7:29 AM EDT BASIC METABOLIC PANEL Routine 01/09/2015 7:29 AM EDT CONVERTED (HISTORICAL) SURGICAL PATHOLOGY Routine 01/08/2015 10:48 AM EDT SCANNED EKG 01/08/2015 CBC (NO DIFF) Routine 01/03/2015 2:25 PM EDT HEMOGLOBIN A1C Routine 01/03/2015 2:25 PM EDT COMPREHENSIVE METABOLIC PANEL Routine 01/03/2015 2:25 PM EDT documented in this encounter Results * (ABNORMAL) Hemoglobin and hematocrit, blood (01/09/2015 7:29 AM EDT) Hemoglobin 10.6(L) 11.5 - 15.5 g/dL [facility] Hematocrit 32.2(L) 34.5 - 44.0 % [facility] Blood specimen (specimen) 01/09/2015 7:29 AM EDT Narrative [facility] - 01/09/2015 8:03 AM EDT Specimen Type: Blood Shikha Sage MD LAB BLOOD ORDERABLES Final Re sult [facility] [address] [place] [address], * (ABNORMAL) Basic metabolic panel (01/09/2015 7:29 AM EDT) Glucose 126(H) 70 - 100 mg/dL [facility] BUN 5(L) 9 - 23 mg/dL [facility] Creatinine 0.6 0.6 - 1.3 mg/dL [facility] Sodium 142 132 - 146 mmol/L [facility] Potassium 3.8 3.5 - 5.5 mmol/L [facility] Chloride 108 99 - 109 mmol/L [facility] CO2 27 20 - 31 mmol/L [facility] Calcium 8.1(L) 8.7 - 10.4 mg/dL [facility] eGFR 112 ml/min/1.7 32 [facility] Comment: DF by IF @ 01/09/2015 08:20 ?? National Kidney Foundation Guidelines ?Stage ? Description ?GFR ?1 ?Normal or High ? 90+ ?2 ?Mild decrease ? 60-89 ?3 ?Moderate decrease ?30-59 ?4 ?Severe decrease ?15-29 ?5 ?Kidney failure ?<15 Anion Gap 7 3 - 11 mmol/L [facility] Blood specimen (specimen) 01/09/2015 7:29 AM EDT Narrative [facility] - 01/09/2015 8:20 AM EDT Specimen Type: Blood Shikha Sage MD LAB BLOOD ORDERABLES Final Re sult Performing Organization Address City/State/[facility] Co de Phone Number [facility] [address] [place] [address], * Converted Surgical Pathology (01/08/2015 10:48 AM EDT) 01/08/2015 10:4 8 AM EDT [facility] - 01/10/2015 11:21 AM EDT [facility] [address] [place] [address] SURGICAL PATHOLOGY REPORT Patient Name: SHERLEY HURT MR#: [id number] : 1975 Gender: F Ordering Physician: SHIKHA SAGE. Copy To: ?? Location: [id number] Collected: 01/08/2015 Received: 01/09/2015 Reported: 01/10/2015 Clinical Diagnosis and History The working history is constipation. Final Diagnosis LEFT COLON, LEFT HEMICOLECTOMY: ? Slight muscular hypertrophy and vascular congestion. MHB/rw Amendments: Electronically Signed Out By GIAN REYES Specimen(s) Received: Colon, seg resect, not for ??tumor (incl lymph nodes) Gross Description Received in formalin labeled left colon is an intact, unopened colectomy specimen measuring 40 cm in length. The proximal and distal resection margins are grossly viable. The serosa is weiss/pink, smooth and glistening with delicate fibrous adhesions. No masses or perforations are appreciated. The colon is opened to reveal weiss, glistening mucosa with normal folds. No masses, polyps, or suspicious lesions are appreciated. Sectioning reveals an unremarkable bowel wall. No masses or diverticula are appreciated. Customer Service Advocate sections are submitted. Summary of Sections: A-B ??surgical margins taken en face, C-E ??random colon. M/rw Microscopic Description The margins are viable and free of active inflammatory change. Ganglion cells are seen within the myenteric plexus. ??Sections through the central portion show slight muscular hypertrophy and some vascular congestion. No active inflammatory change or neoplasm is seen. MHB/rw Procedures/Addenda us See Report Interface PATHOLOGY/CYTOLOGY ORDERABL ES Final Result [facility] [place] [address], * SCANNED EKG (01/08/2015) [facility] ECG ORDERABLES Final Result * (ABNORMAL) Comprehensive metabolic panel (01/03/2015 2:25 PM EDT) Glucose 72 70 - 100 mg/dL [facility] BUN 5(L) 9 - 23 mg/dL [facility] Creatinine 0.6 0.6 - 1.3 mg/dL [facility] Sodium 140 132 - 146 mmol/L [facility] Potassium 3.5 3.5 - 5.5 mmol/L [facility] Chloride 105 99 - 109 mmol/L [facility] CO2 31 20 - 31 mmol/L [facility] Calcium 8.6(L) 8.7 - 10.4 mg/dL [facility] Alkaline Phosphatase 93 25 - 100 Units/L [facility] AST (SGOT) 15 0 - 33 Units/L [facility] ALT (SGPT) 13 7 - 40 Units/L [facility] Total Bilirubin 0.4 0.3 - 1.2 mg/dL [facility] Total Protein 6.0 5.7 - 8.2 g/dL [facility] Albumin 3.7 3.2 - 4.8 g/dL [facility] eGFR 132 ml/min/1.7 32 [facility] Comment: DF by IF @ 01/03/2015 15:12 ?? National Kidney Foundation Guidelines ?Stage ? Description ?GFR ?1 ?Normal or High ? 90+ ?2 ?Mild decrease ? 60-89 ?3 ?Moderate decrease ?30-59 ?4 ?Severe decrease ?15-29 ?5 ?Kidney failure ?<15 Anion Gap 4 3 - 11 mmol/L [facility] Blood specimen (specimen) 01/03/2015 2:25 PM EDT Narrative [facility] - 01/03/2015 3:12 PM EDT Specimen Type: Blood Shikha Sage MD LAB BLOOD ORDERABLES Final Re sult Performing Organization Address City/[facility] Co de Phone Number [facility] [address] [place] [address], * CBC (No diff) (01/03/2015 2:25 PM EDT) WBC 8.45 3.50 - 10.80 K/[facility] RBC 4.17 3.89 - 5.14 M/[facility] Hemoglobin 11.8 11.5 - 15.5 g/dL [facility] Hematocrit 36.9 34.5 - 44.0 % [facility] MCV 88.5 80.0 - 99.0 fL [facility] MCH 28.3 27.0 - 31.0 pg [facility] MCHC 32.0 32.0 - 36.0 g/dL [facility] RDW-CV 13.7 11.3 - 14.5 % [facility] Platelets 240 150 - 450 K/[facility] Blood specimen (specimen) 01/03/2015 2:25 PM EDT Narrative [facility] - 01/03/2015 2:54 PM EDT Specimen Type: Blood Shikha Sage MD LAB BLOOD ORDERABLES Final Re sult Performing Organization Address City/[facility]/ZIP Co de Phone Number [facility] [address] [place] [address], * Hemoglobin A1c (01/03/2015 2:25 PM EDT) Hemoglobin A1C 5.3 4.00 - 6.00 % [facility] Comment: DF by IF @ 01/03/2015 15:46 The [place] [employer] recommends maintenance of Hemoglobin A1C at 7.0% or lower. Goals for Hemoglobin A1C reduction may need to be modified if hypoglycemia is a problem. Mean Bld Glu Estim. 99 mg/dL [facility] Blood specimen (specimen) 01/03/2015 2:25 PM EDT Narrative [facility] - 01/03/2015 3:46 PM EDT Specimen Type: Blood us Shikha Sage MD LAB BLOOD ORDERABLES Final Re sult [facility] [address] [place] [address], documented in this encounter Visit Diagnoses Not on filedocumented in this encounter
--- OUTSIDE RECORDS SUMMARY | 2024-09-09 08:42 | XMS_ITS | Encounter Summary ---
Author Organization [facility] Address [address] [place] [address] Care Team Providers Care Tipple Worker Name Role Phone Unavailable Primary Care Provider Unavailabl e Encounter Details Date Type Department Care Team (Late st Contact Info) Description 12/01/2014 7:37 AM EST - 12/01/2014 11:59 PM EST Hospital Encounter [facility] [address] [place] [address] Brady Price MD [address] [place] [address] Social History Tobacco Use Types Packs/Day Years [...] Name Priority Date/Time Associated Diagnosis Comments FL BARIUM ENEMA WATER SOLUBLE SINGLE CONTRAST Routine 12/01/2014 7:44 AM EST documented in this encounter Results * FL BARIUM ENEMA WATER SOLUBLE (12/01/2014 7:44 AM EST) Anatomical Region Laterality Modality Body N/A Radiographic Ada ging 12/01/2014 7:44 AM EST Narrative 12/01/2014 5:25 PM EST EXAMINATION: RF COLON ENEMA WATER SOLUBLE- INDICATION: CONSTIPATION ?? TECHNIQUE: 3 minutes and 12 seconds of fluoroscopic time was used for this exam. Instructional Resource Teacher imaging of the abdomen reveals a nonobstructive bowel gas pattern. The enema tube was placed in the rectum and the balloon was inflated. Under fluoroscopic observation a single contrast study was performed with water-soluble contrast. COMPARISON: NONE FINDINGS: Contrast was seen refluxing the small bowel. There is redundancy of the sigmoid colon. There is a moderate amount of stool present throughout the colon, therefore filling defects cannot be fully excluded at this time. There is no evidence of obstructing lesion. Normal evacuation of contrast was noted. ? IMPRESSION- 1. Mildly limited water-soluble enema series due to stool present in the colon. Filling defects cannot be fully excluded at this time. 2. No evidence of obstructing lesion 3. Redundancy of the sigmoid colon ? Reading Davian AUGUSTINE ? Releasing Radiologist- PABLO BROOKS ? Released Date Time- 12/01/14 1736 ? Loading Machine Operator Helper- N.D. Procedure Note Interface, See Report - 06/26/2015 EXAMINATION: RF COLON ENEMA WATER SOLUBLE- INDICATION: CONSTIPATION TECHNIQUE: 3 minutes and 12 seconds of fluoroscopic time was used for this exam. Instructional Resource Teacher imaging of the abdomen reveals a nonobstructive bowel gas pattern. The enema tube was placed in the rectum and the balloon was inflated. Under fluoroscopic observation a single contrast study was performed with water-soluble contrast. COMPARISON: NONE FINDINGS: Contrast was seen refluxing the small bowel. There is redundancy of the sigmoid colon. There is a moderate amount of stool present throughout the colon, therefore filling defects cannot be fully excluded at this time. There is no evidence of obstructing lesion. Normal evacuation of contrast was noted. IMPRESSION- 1. Mildly limited water-soluble enema series due to stool present in the colon. Filling defects cannot be fully excluded at this time. 2. No evidence of obstructing lesion 3. Redundancy of the sigmoid colon Reading RadiologistRosa AUGUSTINE Releasing Radiologist- PABLO BROOKS Released Date Time- 12/01/14 1736 Loading Machine Operator Helper- NKaden. Brady Price MD IMG FLUOROSCOPY ORDERABLES Fi nal Result documented in this encounter Visit Diagnoses Not on filedocumented in this encounter
--- OUTSIDE RECORDS SUMMARY | 2024-09-09 08:42 | XMS_ITS | Encounter Summary ---
Author Organization [facility] Address [address] [place] [address] Care Team Providers Care Home Service Demonstrator Name Role Phone Leonardo García MD Primary Care Provider [phone] Reason for Referral * Diagnostic Medical (Routine) - Closed Specialty Diagnoses / Procedures [facility] Referred To Contact Diagnoses SOB (shortness of breath) Procedures Pulmonary Function Test Fanny Weaver MD Phone: tel: fax: [facility] [address] [place] [phone] Phone: tel: fax: Referral ID Status Reason Start Date Expiration Date Visits Re quested Visits Authorized [id number] Closed 02/06/2020 02/05/2021 1 1 Reason for Visit * Reason Comments Breathing Problem Shortness of Breath Cough Wheezing * Consultation (Routine) - Closed Specialty Diagnoses / Procedures Referred By Contac Referred To Contact Pulmonology Diagnoses Asthma Shortness of breath Leonardo García MD [address] [place] [id number] Phone: tel: fax: [facility] [address] [place] [phone] Phone: tel: fax: Referral ID Status Reason Start Date Expiration Date Visits Re quested Visits Authorized [id number] Closed 12/28/2019 12/27/2020 1 1 Encounter Details Date Type Department Care Team (Late st Contact Info) Description 02/06/2020 2:30 PM EDT Office Visit [facility] [address] [place] [phone] Fanny Weaver MD [address] [place] [address] SOB (shortness of breath) (Primary Dx); PEREZ (dyspnea on exertion); Wheezing; GERD with esophagitis Social History Tobacco Use Types Packs/Day Years [...] 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 on file Not on file documented as of this encounter Last Filed Vital Signs Vital Sign Reading Time Taken Comments Blood Pressure 120/70 02/06/2020 1:53 PM EDT Pulse 87 02/06/2020 1:53 PM EDT Temperature 36.7 ??C (98 ??F) 02/06/2020 1:5 3 PM EDT Respiratory Rate - - Oxygen Saturation 97% 02/06/2020 1:5 3 PM EDT resting, room air Inhaled Oxygen Concentration - - Weight 94.7 kg (208 lb 12.8 oz) 02/06/2020 1:53 PM EDT Height 163.8 cm (5' 4.5 ) 02/06/2020 1: 53 PM EDT Body Mass Index 35.29 02/06/2020 1:53 PM EDT documented in this encounter Progress Notes * Fanny Weaver MD - 02/06/2020 2:30 PM EDT Sherley Alonso is a 44 y.o. female here for evaluation of Chief Complaint Patient presents with ??? Breathing Problem ??? Shortness of Breath ??? Cough ??? Wheezing Problem list: 1. Wheezing 2. Dyspnea on exertion 3. Tobacco use, 28 pack years 4. GERD with esophagitis 5. Chronic constipation 6. Hypothyroid 7. Migraine headaches 8. History of proximal atrial fibrillation 9. External hemorrhoids 10. Bilateral cataract surgery 11. Colonoscopy, EGD, 2014 12. Left hemicolectomy 13. Laparoscopic assisted hysterectomy 14. Exploratory laparoscopy for endometriosis 15. 1 para 2, twins 16. Allergy to codeine, Imitrex History of Present Illness 44-year-old woman, active smoker here to evaluate asthma. She started smoking at age 16 years and has smoked for 28 years, 1 to 1-1/2 packs/day. She did not have any respiratory symptoms until November or December of this year. In early December she became ill with a cough and chest tightness. She saw her physician and received steroids and antibiotics. Mucus resolved but she continued to have wheezingand shortness of air. She was admitted overnight for observation December 21. She has had multiple COVID-19 test that are negative. She was then seen in [facility]'s ER 2 or 3 times and at [facility] several times with shortness of breath and wheezing. Chest x-rays were clear. She received various inhalers including samples of still low toe and then Breo. Currently she is using albuterol rescue inhaler as needed and a DuoNeb every 4 hours while awake. She got thrush with inhaledcorticosteroids and has not been using them. She does awaken at night with wheezing and uses her nebulizer. She initially denied exposure to noxious fumes but states that somebody was spraying a conduit cleaner on the counters when this started in early December. She initially denied reflux but then told me that she would belch loudly after meals and feel food come up into her throat from reflux. She had anupper endoscopy in 2014 and was diagnosed with esophagitis at that time. She is never been on medication. Between May and September of last year she gained 50 pounds. Review of Systems Constitutional: Positive for activity change, fatigue and unexpected weight change. Negative for fever. HENT: Positive for sore throat. Negative for congestion, postnasal drip and trouble swallowing. Eyes: Negative for visual disturbance. Respiratory: Positive for cough, chest tightness, shortness of breath and wheezing. Cardiovascular: Positive for chest pain. Negative for palpitations and leg swelling. Gastrointestinal: Positive for constipation. Negative for blood in stool. Genitourinary: Negative for difficulty urinating and dysuria. Musculoskeletal: Negative for arthralgias. Skin: Negative for rash. Hematological: Negative for adenopathy. Does not bruise/bleed easily. Psychiatric/Behavioral: Negative for decreased concentration. The patient is nervous/anxious. Current Outpatient Medications: ??? albuterol (PROVENTIL) (2.5 MG/3ML) 0.083% nebulizer solution, Take 2.5 mg by nebulization Every4 (Four) Hours As Needed for Wheezing., Disp: , Rfl: ??? albuterol sulfate HFA 108 (90 Base) MCG/ACT inhaler, Inhale 2 puffs Every 4 (Four) Hours As Needed for Wheezing., Disp: , Rfl: ??? amitriptyline (ELAVIL) 100 MG tablet, Take 100 mg by mouth Every Night., Disp: , Rfl: ??? FLUoxetine (PROzac) 20 MG capsule, Take 40 mg by mouth Daily., Disp: , Rfl: ??? hydrOXYzine pamoate (VISTARIL) 25 MG capsule, Take 25 mg by mouth 3 (Three) Times a Day As Needed for Itching., Disp: , Rfl: ??? ipratropium-albuterol (DUO-NEB) 0.5-2.5 mg/3 ml nebulizer, Take 3 mL by nebulization Every 4 (Four) Hours As Needed for Wheezing., Disp: , Rfl: ??? levothyroxine (SYNTHROID, LEVOTHROID) 50 MCG tablet, Take 50 mcg by mouth Daily., Disp: , Rfl: ??? montelukast (SINGULAIR) 10 MG tablet, Take 10 mg by mouth Every Night., Disp: , Rfl: ??? nystatin (MYCOSTATIN) 062580 UNIT/ML suspension, Swish and swallow 500,000 Units 4 (Four) Timesa Day., Disp: , Rfl: ??? propranolol (INDERAL) 20 MG tablet, Take 20 mg by mouth 3 (Three) Times a Day., Disp: , Rfl: ??? topiramate (TOPAMAX) 100 MG tablet, Take 100 mg by mouth 2 (Two) Times a Day., Disp: , Rfl: ??? fluticasone (FLOVENT HFA) 220 MCG/ACT inhaler, Inhale 1 puff 2 (Two) Times a Day. 2 puffs twicedaily, with spacer, Disp: 1 inhaler, Rfl: 12 ??? pantoprazole (PROTONIX) 40 MG EC tablet, Take 1 tablet by mouth Every 12 (Twelve) Hours., Disp:60 tablet, Rfl: 12 Past Medical History: Diagnosis Date ??? Asthma ??? Cataract ??? Constipation by outlet dysfunction ??? GERD with esophagitis ??? Hemorrhoids,external ??? Hypothyroid ??? Migraine ??? PAF (paroxysmal atrial fibrillation) (CMS/HCC) ??? Proctalgia fugax Past Surgical History: Procedure Laterality Date ??? CATARACT EXTRACTION, BILATERAL ??? COLONOSCOPY 2014 ??? DIAGNOSTIC LAPAROSCOPY endometriosis ??? ENDOSCOPY 2014 ??? HEMICOLECTOMY Left ??? LAPAROSCOPIC HYSTERECTOMY Social History Socioeconomic History ??? Marital status: Single Spouse name: Not on file ??? Number of children: 2 ??? Years of education: Not on file ??? Highest education level: Not on file Occupational History ??? Occupation: PROGRAM ADMINISTRATOR Tobacco Use ??? Smoking status: Current Every Day Smoker Packs/day: 1.00 Years: 28.00 Pack years: 28.00 Types: Cigarettes ??? Smokeless tobacco: Never Used Substance and Sexual Activity ??? Alcohol use: Never Frequency: Never ??? Drug use: Never ??? Sexual activity: Defer Family History Problem Relation Age of Onset ??? Diabetes Mother ??? Asthma Mother ??? Diabetes Father ??? Coronary artery disease Father ??? Blindness Brother ??? Asthma Brother ??? Emphysema Maternal Grandmother ??? Hypertension Brother ??? Hypertension Brother Blood pressure 120/70, pulse 87, temperature 98 ??F (36.7 ??C), height 163.8 cm (64.5 ), weight 94.7 kg (208 lb 12.8 oz), SpO2 97 %, Physical Exam Constitutional: She is oriented to person, place, and time. She appears well- developed and well-nourished. No distress. HENT: Head: Normocephalic and atraumatic. Nasal mucosa erythema. Nasal septum is deviated to the left. No nasal polyps. Oropharynx with cleardrainage, no thrush Eyes: Pupils are equal, round, and reactive to light. EOM are normal. No scleral icterus. Neck: No JVD present. No tracheal deviation present. No thyromegaly present. Cardiovascular: Normal rate, regular rhythm and normal heart sounds. No murmur heard. Pulmonary/Chest: Effort normal and breath sounds normal. She has no wheezes. She does not have any wheezing in her chest but auscultation over her larynx notes some wheezing Abdominal: Soft. Bowel sounds are normal. She exhibits no distension. There is no tenderness. Musculoskeletal: She exhibits no edema. Lymphadenopathy: She has no cervical adenopathy. Neurological: She is alert and oriented to person, place, and time. Skin: Skin is warm and dry. Several tattoos on both forearms Psychiatric: Anxious PFTs: FVC 3.49 L, 93%, FEV1 2.69 L, 89%, ratio 77%, flow volume loop without blunting, total lung capacity 4.47 L, 87%, diffusion capacity 15.9, 60%, no obstruction or restriction, mild diffusion impairment Radiology: I personally reviewed 2 chest x-rays from the [facility] done in December and January of this year. Cardiac silhouette is not enlarged lungs are well- inflated without infiltrate or effusion. No visible adenopathy Lab: Sherley was seen today for breathing problem, shortness of breath, cough and wheezing. Diagnoses and all orders for this visit: SOB (shortness of breath) - Pulmonary Function Test PEREZ (dyspnea on exertion) Wheezing GERD with esophagitis Other orders - fluticasone (FLOVENT HFA) 220 MCG/ACT inhaler; Inhale 1 puff 2 (Two) Times a Day. 2 puffs twice daily, with spacer - pantoprazole (PROTONIX) 40 MG EC tablet; Take 1 tablet by mouth Every 12 (Twelve) Hours. Discussion: 44-year-old woman, smoker here with exertional dyspnea and wheezing that is significantly worsened in the last 3 months. Her FEV1 today is 89%. She had a wheeze in her larynx on examination. I wonderif this is either vocal cord dysfunction or GERD with laryngeal spasm. She also has some postnasal drip on examination. I really expected her to have significant airflow limitation and was surprised by her normal FEV1. Her resting room air saturation is also 97%. While I do not hear a murmur occultmitral stenosis can actually present as cardiac asthma . It will not cause cardiomegaly and can bedifficult to find clinically. Echocardiogram to evaluate mitral valve disease and LV function because of her extreme dyspnea on exertion and normal FEV1 Barium swallow to look for reflux Start Protonix 40 mg every 12 hours Start Flovent 221 puff twice daily Continue nebulized bronchodilators Stop propranolol If above studies are normal then I would refer her to speech pathology for vocal cord dysfunction Follow-up in 2 weeks Fanny Weaver MD documented in this encounter Plan of Treatment Not on file documented as of this encounter Procedures Procedure Name Priority Date/Time Associated Diagnosis Comments PULMONARY FUNCTION TEST Routine 02/06/2020 4:29 PM EDT SOB (shortness of breath) documented in this encounter Results * Pulmonary Function Test (02/06/2020 4:29 PM EDT) us Fanny Weaver MD PFT ORDERABLES Final Re sult documented in this encounter Visit Diagnoses Diagnosis SOB (shortness of breath)- Primary Shortness of breath PEREZ (dyspnea on exertion) Other dyspnea and respiratory abnormality Wheezing GERD with esophagitis documented in this encounter Care Teams Home Service Demonstrator Relationship Specialty Start Date End Date Leonardo García MD [address] [place] [address] PCP - General Internal Medicine 02/06/20 02/23/20 documented as of this encounter
--- OUTSIDE RECORDS SUMMARY | 2024-09-09 08:42 | XMS_ITS | Encounter Summary ---
Author Organization [facility] Address [address] [place] [address] Care Team Providers Care Silo Filler Name Role Phone Melodie Brown MD Primary Care Provider [phone] Reason for Visit * Reason Onset Date Comments Med Refill 08/08/2020 Encounter Details Date Type Department Care Team (Late st Contact Info) Description 08/08/2020 Telephone [facility] MEDIC[facility] [address] [place] [address] Fanny Weaver MD [address] [place], [place] [id number] Med Refill Social History Tobacco Use Types Packs/Day Years [...] Industry Job Start Date Job End Date [employer] Not on file Not on file Not on file documented as of this encounter Miscellaneous Notes * Telephone Encounter - Lou Levy MA - 08/08/2020 12:50 PM EST Pt notified of change of inhalers. Pt verbalized understanding. * Telephone Encounter - Lou Levy MA - 08/08/2020 11:08 AM EST PA for Rx Flovent denied through [place] . Rx Arnuity is preferred. documented in this encounter Plan of Treatment Not on file documented as of this encounter Visit Diagnoses Diagnosis Wheezing- Primary documented in this encounter Care Teams Silo Filler Relationship Specialty Start Date End Date Melodie Brown MD [address] [place] [address] PCP - General Family Medicine 03/21/20 documented as of this encounter
--- OUTSIDE RECORDS SUMMARY | 2024-09-09 08:42 | XMS_ITS | Encounter Summary ---
Author Organization [facility] Address [address] [place] [address] Care Team Providers Care Road Patcher Name Role Phone Leonardo García MD Primary Care Provider [phone] Reason for Referral * Diagnostic Medical (Routine) - Closed Specialty Diagnoses / Procedures Referred By Contac t Referred To Contact Diagnoses PEREZ (dyspnea on exertion) Procedures Adult Transthoracic Echo Complete W/ Cont if Necessary Per Protocol Fanny Weaver MD Phone: tel: fax: [address] [phone] Phone: tel: Referral ID Status Reason Start Date Expiration Date Visits Re quested Visits Authorized [id number] Closed 02/09/2020 02/08/2021 1 1 Reason for Visit * Diagnostic Medical (Routine) - Closed Specialty Diagnoses / Procedures Referred By Contac t Referred To Contact Diagnoses PEREZ (dyspnea on exertion) Procedures Adult Transthoracic Echo Complete W/ Cont if Necessary Per Protocol Fanny Weaver MD Phone: tel: fax: [address] [phone] Phone: tel: Referral ID Status Reason Start Date Expiration Date Visits Re quested Visits Authorized [id number] Closed 02/09/2020 02/08/2021 1 1 Encounter Details Date Type Department Care Team (Latest Contact Info) Description 02/17/2020 2:53 PM EDT - 02/17/2020 11:59 PM EDT Hospital Encounter [facility] NONINVAS[facility] [address] [place] [address] PEREZ (dyspnea on exertion) Discharge Disposition: Home or Self Care Social [...] 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 nystatin (MYCOSTATIN) 475140 UNIT/ML suspension Swish and swallow 5 mL [...] Procedure Name Priority Date/Time Associated Diagnosis Comments ECHO COMPLETE W/ DOPPLER AND COLOR FLOW Routine 02/17/2020 4:20 PM EDT PEREZ (dyspnea on exertion) documented in this encounter Results * ECHO COMPLETE W/ DOPPLER AND COLOR FLOW (02/17/2020 4:20 PM EDT) BSA 2.0 m^2 [facility] IVSd 1.1 cm [facility] LVIDd 4.0 cm [facility] LVIDs 2.5 cm [facility] LVPWd 1.1 cm [facility] IVS/LVPW 0.98 [facility] FS 37.9 % [facility] EDV(Teich) 71.0 ml [facility] ESV(Teich) 22.3 ml [facility] EF(Teich) 68.7 % [facility] EDV(cubed) 65.1 ml [facility] ESV(cubed) 15.6 ml [facility] EF(cubed) 76.1 % [facility] LV mass(C)d 142.3 grams [facility] LV mass(C)dI 71.5 grams/m^2 [facility] SV(Teich) 48.7 ml [facility] SI(Teich) 24.5 ml/m^2 [facility] SV(cubed) 49.6 ml [facility] SI(cubed) 24.9 ml/m^2 [facility] Ao root diam 2.1 [facility] Ao root area 3.6 cm^2 [facility] LA dimension (2D) 3.0 cm [facility] LA/Ao 1.4 [facility] LAd major 5.0 cm [facility] LA ESV (BP) 26.0 ml [facility] Ao root area (BSA corrected) 1.1 [facility] LA ESV Index (BP) 13.1 ml/m^2 [facility] MV E max jamal 78.0 cm/sec [facility] MV A max jamal 49.4 cm/sec [facility] MV E/A 1.6 [facility] MV P1/2t max jamal 96.4 cm/sec [facility] MV P1/2t 52.4 msec [facility] MVA(P1/2t) 4.2 cm^2 [facility] MV dec slope 538.9 cm/sec^2 [facility] MV dec time 0.21 sec [facility] PA acc slope 544.4 cm/sec^2 [facility] PA acc time 0.15 sec [facility] PI end-d jamal 89.6 cm/sec [facility] RV V1 max PG 0.99 mmHg [facility] RV V1 max 49.9 cm/sec [facility] PA pr(Accel) 10.9 mmHg [facility] MVA P1/2T LCG 2.3 cm^2 [facility] Lat E/e' 6.9 [facility] Med E/e' 10.5 [facility] Lat Peak E' Jamal 11.2 cm/sec [facility] Med Peak E' Jamal 7.2 cm/sec [facility] CV ECHO DORIS - BZI_BMI 35.7 kilograms/ m^2 [facility] CV ECHO DORIS - BSA([place]) 2.1 m^[address] [facility] CV ECHO DORIS - BZI_METRIC_WEIG HT 94.3 kg [facility] CV ECHO DORIS - BZI_METRIC_HEIG HT 162.6 cm [facility] Avg E/e' ratio 8.48 [facility] Target HR (85%) 151 bpm [facility] Max. Pred. HR (100%) 178 bpm [facility] RV S' 12.50 cm/sec [facility] RV Base 4.10 cm [facility] RV Length 6.20 cm [facility] RV Mid 3.30 cm [facility] TAPSE (>1.6) 1.80 cm2 [facility] Anatomical Region Laterality Modality Ultrasound 02/17/2020 3:14 PM EDT Narrative 02/17/2020 6:21 PM EDT ?? Normal LVSF ?? No significant valvular heart disease Left Ventricle Normal left ventricular cavity size and wall thickness noted. All left ventricular wall segments contract normally. Right Ventricle Normal right ventricular cavity size, wall thickness, systolic function and septal motion noted. Left Atrium Normal left atrial size and volume noted. Right Atrium Normal right atrial size noted. Mitral Valve The mitral valve is normal in structure. Trace mitral valve regurgitation is present. No significant mitral valve stenosis is present. Tricuspid Valve The tricuspid valve is normal. Trace tricuspid valve regurgitation is present. Aortic Valve The aortic valve is structurally normal. No aortic valve regurgitation is present. No aortic valve stenosis is present. Pulmonic Valve The pulmonic valve is structurally normal. There is no significant pulmonic valve stenosis present. There is trace pulmonic valve regurgitation present. Pericardium The pericardium is normal. There is no evidence of pericardial effusion. Additional Study Details A two-dimensional transthoracic echocardiogram with color flow and Doppler was performed. Greater Vessels No dilation of the aortic root is present. us Fanny Weaver MD CV ECHO ORDERABLES Final Result documented in this encounter Visit Diagnoses Diagnosis PEREZ (dyspnea on exertion) Other dyspnea and respiratory abnormality documented in this encounter Care Teams Road Patcher Relationship Specialty Start Date End Date Leonardo García MD [address] [place] [address] PCP - General Internal Medicine 02/06/20 02/23/20 documented as of this encounter
--- OUTSIDE RECORDS SUMMARY | 2024-09-09 08:42 | XMS_ITS | Encounter Summary ---
[facility] Address [address] [place] [address] Care Team Providers Care Wolf Hunter Name Role Phone Provider, No Known Primary Care Provider Unavail able Encounter Details Date Type Department Care Team (Late st Contact Info) Description 02/24/2020 9:44 AM EDT Hospital Encounter [facility] [address] [place] [phone] Social History Tobacco Use Types Packs/Day Years [...] of Binge Drinking Not on file 01/2020 Abuse Screen Answer Date Recorded Unsafe at Home or Work/School Not on file Feels Threatened by Someone? Not on file 04/2024 Does Anyone Keep You from Co ntacting Others or Doint Things Outside the Home? Not on file 12/10/2023 Physical Sign of Abuse Present Not on file 0 12/10/2023 Housing Stability Answer Date Recorded Current Living Arrangements Not on file 06/2023 Potentially Unsafe Housing Conditions Not on arabella e 07/13/2023 Family and Community Support Answer Delmar e Recorded Help with Day-to-Day Activities Not on file 07/13/2023 Lonely or Isolated Not on file 07/13/2023 Employment Answer Date Recorded Do you want help finding or keeping work or a gi b? Not on file 07/13/2023 Disabilities Answer Date Recorded Concentrating, Remembering, or Making Decisions Difficulty Not on file 07/13/2023 Doing Errands Independently Difficulty Not on fi le 07/13/2023 Education Answer Date Recorded Help with school or training? Not on file Preferred Language Not on file 07/13/2023 Comments No Sex and Gender Information Value Date Recorded Sex Assigned at Not on file Legal Sex Female 11:51 AM EDT Gender Identity Not on file Sexual Orientation Not on file Occupation Industry Job Start Date Job End Date [employer] Not on file Not on file Not on file documented as of this encounter Plan of Treatment Not on file documented as of this encounter Procedures Procedure Name Priority Date/Time Associated Diagnosis Comments XR CHEST PA AND LATERAL Routine 02/24/2020 9:47 AM EDT PEREZ (dyspnea on exertion) documented in this encounter Results * XR Chest PA & Lateral (02/24/2020 9:47 AM EDT) Anatomical Region Laterality Modality Body, Chest N/A Radiographic Ada ging 02/24/2020 11:2 5 AM EDT Impressions 02/25/2020 4:16 PM EDT No acute cardiopulmonary disease. DICTATED: ?? 02/24/2020 EDITED/ls : ?? 02/25/2020 This report was finalized on 02/25/2020 4:[address] Rose Lindsay MD. Narrative 02/25/2020 4:16 PM EDT EXAMINATION: XR CHEST PA AND LATERAL - 02/24/2020 INDICATION: R06.09-Other forms of dyspnea. COMPARISON: NONE FINDINGS: PA and lateral chest reveals the cardiac and mediastinal silhouettes within normal limits. The lung mustafa are grossly clear. No focal parenchymal opacification is present. No pleural effusion or pneumothorax. The bony structures are unremarkable. The pulmonary vascularity is within normal limits. Procedure Note Rose Lindsay MD - 02/25/2020 EXAMINATION: XR CHEST PA AND LATERAL - 02/24/2020 INDICATION: R06.09-Other forms of dyspnea. COMPARISON: NONE FINDINGS: PA and lateral chest reveals the cardiac and mediastinal silhouettes within normal limits. The lung mustafa are grossly clear. No focal parenchymal opacification is present. No pleural effusion or pneumothorax. The bony structures are unremarkable. The pulmonary vascularity is within normal limits. IMPRESSION: No acute cardiopulmonary disease. DICTATED: 02/24/2020 EDITED/ls : 02/25/2020 This report was finalized on 02/25/2020 4:[address] Rose Lindsay MD. [employer] IMG DIAGNOSTIC IMAGING ORD ERABLES Final Result documented in this encounter Visit Diagnoses Not on filedocumented in this encounter Care Teams Wolf Hunter Relationship Specialty Start Date End Date Provider, [place] [address] PCP - General 02/24/20 03/20/20 documented as of this encounter
--- OUTSIDE RECORDS SUMMARY | 2024-09-09 08:42 | XMS_ITS | Clinical Summary ---
Author Organization [facility] Address [address] [place] [address] Care Team Providers Care Nuclear Weapons Specialist Name Role Phone Melodie Brown MD Primary Care Provider [phone] Immunizations Name Administration Dates Next Due Influenza, Unspecified 08/27/2015,07/24/2014 PPD Skin Test (TB Skin Test) 01/30/2014,12/18/19 13,07/05/2012,06/25/2012 Family History Medical History Relation Name Comments Asthma Brother 1 Hypertension Brother 2 Diabetes Father Heart attack Father Hypertension Father Hypertension Mother Hypothyroidism Mother Asthma Other 1 Coronary artery disease Other 2 Emphysema Other 3 Relation Name Status Comments Brother 1 Brother 2 Father Mother Other 1 Other 2 Other 3 Social History Tobacco Use Types Packs/Day Years Used Date Smoking Tobacco: Every Day Alcohol Use Standard Drinks/Week Comments No 0 (1 standard drink = 0.6 oz pur e alcohol) Comments Unknown Sex and Gender Information Value Date Recorded Sex Assigned at Not on file Legal Sex Female 6:32 PM EDT Gender Identity Not on file Sexual Orientation Not on file Last Filed Vital Signs Vital Sign Reading Time Taken Comments Blood Pressure 116/78 08/14/2020 11:57 AM EST Pulse 87 08/14/2020 11:57 AM EST Temperature 36.6 ??C (97.8 ??F) 08/14/2020 11:[address] Respiratory Rate 18 08/14/2020 11:57 AM EST Oxygen Saturation - - Inhaled Oxygen Concentration - - Weight 90.7 kg (200 lb) 10/24/2020 12:37 PM EST Height 167.6 cm (5' 6 ) 10/24/2020 12:37 PM EST Body Mass Index 32.28 10/24/2020 12:37 PM EST Plan of Treatment Not on file Care Teams Nuclear Weapons Specialist Relationship Specialty Start Date End Date Melodie Brown MD [address] [place] [address] PCP - General 02/15/21
--- OUTSIDE RECORDS SUMMARY | 2024-09-09 08:42 | XMS_ITS | Encounter Summary ---
Author Organization [facility] Address [address] [place] [address] Care Team Providers Care Procurement Specialist Name Role Phone Melodie Brown MD Primary Care Provider [phone] Reason for Visit * Reason Comments Constipation Abdominal Pain Encounter Details Date Type Department Care Team (Late st Contact Info) Description 2022 2:56 PM EST - 2022 5:03 PM EST Emergency EMERGENCY DEPARTMENT [address] [place] [address] Holden Chacon MD [address] [facility] [place] [address] Acute gastritis without hemorrhage, unspecified gastritis type (Primary Dx) Discharge Disposition: Home or Self Care Social [...] file 01/2020 Abuse Screen Answer Date Recorded Feels Unsafe at Home or Work/School no 2022 Feels Threatened by Someone no 11/2022 Does Anyone Try to Keep You From Having Contact with Others or Doing Things Outside Your Home? no 2022 Physical Signs of Abuse Present no 2022 Comments No Sex and Gender Information Value Date Recorded Sex Assigned at Not on file Legal Sex Female 11:51 AM EDT Gender Identity Not on file Sexual Orientation Not on file Occupation Industry Job Start Date Job End Date [employer] Not on file Not on file Not on file documented as of this encounter Last Filed Vital Signs Vital Sign Reading Time Taken Comments Blood Pressure 129/80 2022 3:20 PM EST Pulse 56 2022 3:20 PM EST Temperature 36.6 ??C (97.9 ??F) 2022 1:27 PM ES T Respiratory Rate 17 2022 1:27 PM EST Oxygen Saturation 98% 2022 3:20 PM EST Inhaled Oxygen Concentration - - Weight 80.7 kg (178 lb) 2022 1:27 PM EST Height 167.6 cm (5' 6 ) 2022 1:27 PM EST Body Mass Index 28.73 2022 1:27 PM EST documented in this encounter Discharge Instructions * Attachments The following attachments cannot be sent through Care Everywhere. * Gastritis Adult (Tunisian) documented in this encounter Medications at Time of Discharge albuterol (PROVENTIL) (2.5 MG/3ML) 0.083% nebulizer solution Take 2.5 mg by nebulization Every 4 (Four) Hours As Needed for Wheezing. albuterol sulfate HFA 108 (90 Base) MCG/ACT inhaler Inhale 2 puffs Every 4 (Four) Hours As Needed for Wheezing. amitriptyline (ELAVIL) 100 MG tablet Take 1 tablet by mouth Every Night. dicyclomine (BENTYL) 20 MG tablet Take 1 tablet by mouth Every 6 (Six) Hours As Needed (pain). 20 tablet 2022 escitalopram (LEXAPRO) 20 MG tablet Take 1 tablet by mouth Daily. famotidine (PEPCID) 40 MG tablet Take 1 tablet by mouth Daily. 15 tablet 2022 FLUoxetine (PROzac) 20 MG capsule Take 2 capsules by mouth Daily. Fluticasone Furoate 200 MCG/ACT aerosol powderIndication s:Wheezing Inhale 1 Act Daily. 90 each 3 08/08/2020 hydrOXYzine pamoate (VISTARIL) 25 MG capsule Take [...] Take 10 mg by mouth Every Night. nicotine (Nicotrol) 10 MG inhaler Inhale 1 puff As Needed for Smoking Cessation. 168 each 3 02/24/2020 nystatin (MYCOSTATIN) 530245 UNIT/ML suspension Swish and swallow 5 mL 4 (Four) Times a Day. pantoprazole (PROTONIX) 40 MG EC tablet Take 1 tablet by mouth Every 12 (Twelve) Hours. 60 tablet 12 02/06/2020 propranolol (INDERAL) 20 MG tablet Take 1 tablet by mouth 3 (Three) Times a Day. sucralfate (CARAFATE) 1 g tablet Take 1 tablet by mouth 4 (Four) Times a Day Before Meals & at Bedtime. 60 tablet 2022 topiramate (TOPAMAX) 100 MG tablet Take 100 mg by mouth 2 (Two) Times a Day. documented as of this encounter ED Notes * Holden Chacon MD - 2022 3:35 PM EST Subjective History of Present Illness Pt presents with upper abd pain and constipation for about two weeks. Seen at [place] ED twice last week for same, had CT scans, told constipated, given Miralax and stool softener. Only water coming out, no solid stool. Saw PCP earlier this week and an XR was ordered and she says today she was called and told to come to the ED based on the XR but she wasn't told what the XR showed. No fever. Occasional nausea and vomiting. She has a history of left hemicolectomy but she can't remember what for. Also has GERD and thyroid disease. Denies use of opiates or tricyclics or other constipation-causing meds. History provided by: Patient Review of Systems Constitutional: Negative for fever. Respiratory: Negative for shortness of breath. Cardiovascular: Negative for chest pain. Gastrointestinal: Positive for abdominal pain, constipation, nausea and vomiting. All other systems reviewed and are negative. Past Medical History: Diagnosis Date ??? Asthma ??? Cataract ??? Constipation by outlet dysfunction ??? GERD with esophagitis ??? Hemorrhoids,external ??? Hypothyroid ??? Migraine ??? PAF (paroxysmal atrial fibrillation) (HCC) ??? Proctalgia fugax Allergies Allergen Reactions ??? Latex Anaphylaxis ??? Codeine Rash and GI Intolerance ??? Imitrex [Sumatriptan] Rash and GI Intolerance Past Surgical History: Procedure Laterality Date ??? CATARACT EXTRACTION, BILATERAL ??? COLONOSCOPY 2014 ??? DIAGNOSTIC LAPAROSCOPY endometriosis ??? ENDOSCOPY 2014 ??? HEMICOLECTOMY Left ??? LAPAROSCOPIC HYSTERECTOMY Family History Problem Relation Age of Onset ??? Diabetes Mother ??? Asthma Mother ??? Diabetes Father ??? Coronary artery disease Father ??? Blindness Brother ??? Asthma Brother ??? Emphysema Maternal Grandmother ??? Hypertension Brother ??? Hypertension Brother Social History Socioeconomic History ??? Marital status: Single ??? Number of children: 2 Tobacco Use ??? Smoking status: Every Day Packs/day: 1.00 Years: 28.00 Pack years: 28.00 Types: Cigarettes ??? Smokeless tobacco: Never Substance and Sexual Activity ??? Alcohol use: Never ??? Drug use: Never ??? Sexual activity: Defer Objective Physical Exam Vitals and nursing note reviewed. Constitutional: General: She is not in acute distress. Appearance: Normal appearance. She is not ill-appearing. HENT: Head: Normocephalic and atraumatic. Mouth/Throat: Mouth: Mucous membranes are moist. Eyes: General: No scleral icterus. Right eye: No discharge. Left eye: No discharge. Conjunctiva/sclera: Conjunctivae normal. Cardiovascular: Rate and Rhythm: Normal rate and regular rhythm. Heart sounds: No murmur heard. Pulmonary: Effort: Pulmonary effort is normal. No respiratory distress. Breath sounds: Normal breath sounds. No wheezing. Abdominal: General: Bowel sounds are normal. There is no distension. Palpations: Abdomen is soft. Tenderness: There is abdominal tenderness in the epigastric area. There is no guarding or rebound. Musculoskeletal: General: No swelling. Normal range of motion. Cervical back: Normal range of motion and neck supple. Skin: General: Skin is warm and dry. Findings: No rash. Neurological: General: No focal deficit present. Mental Status: She is alert. Mental status is at baseline. Psychiatric: Mood and Affect: Mood normal. Behavior: Behavior normal. Thought Content: Thought content normal. Procedures ED Course Labs benign. CT negative for impaction/retention and positive for gastritis. Patient stable on serial rechecks. Discussed findings, concerns, plan of care, expected course, reasons to return and followup. Provided the opportunity to ask questions. Medical Decision Making Acute gastritis without hemorrhage, unspecified gastritis type: acute illness or injury Amount and/or Complexity of Data Reviewed Labs: ordered. Decision-making details documented in ED Course. Radiology: ordered and independent interpretation performed. Decision-making details documented in ED Course. Risk Prescription drug management. Final diagnoses: Acute gastritis without hemorrhage, unspecified gastritis type ED Disposition ED Disposition ED Disposition Discharge Condition Stable Comment -- Melodie Brown MD [address] [place] [id number] In 1 week Medication List New Prescriptions dicyclomine 20 MG tablet Commonly known as: BENTYL Take 1 tablet by mouth Every 6 (Six) Hours As Needed (pain). famotidine 40 MG tablet Commonly known as: PEPCID Take 1 tablet by mouth Daily. sucralfate 1 g tablet Commonly known as: CARAFATE Take 1 tablet by mouth 4 (Four) Times a Day Before Meals & at Bedtime. Where to Get Your Medications These medications were sent to [place], [place] - [address] [facility] [phone] [facility] [phone] FX [address] [address] ?? dicyclomine 20 MG tablet ?? famotidine 40 MG tablet ?? sucralfate 1 g tablet Holden Chacon MD 12/04/22 1906 documented in this encounter Plan of Treatment Not on file documented as of this encounter Procedures Procedure Name Priority Date/Time Associated Diagnosis Comments CT ABDOMEN PELVIS W CONTRAST STAT 2022 3:45 PM EST URINALYSIS W/ MICROSCOPIC IF INDICATED (NO CULTURE) STAT 2022 1:47 PM EST RUIZ TOP STAT 2022 1:38 PM EST GOLD TOP - SST STAT 2022 1:38 PM EST DK GREEN TOP STAT 2022 1:38 PM EST CBC WITH AUTO DIFFERENTIAL STAT 2022 1:38 PM EST LAVENDER TOP STAT 2022 1:38 PM EST LIGHT BLUE TOP STAT 2022 1:38 PM EST RAINBOW DRAW STAT 2022 1:38 PM EST CBC AND DIFFERENTIAL STAT 2022 1:38 PM EST LIPASE STAT 2022 1:38 PM EST COMPREHENSIVE METABOLIC PANEL STAT 2022 1:38 PM EST documented in this encounter Results * CT Abdomen Pelvis With Contrast (2022 3:45 PM EST) Anatomical Region Laterality Modality Abdomen, Pelvis N/A Computed Tomogra phy 2022 3:49 PM EST Impressions 2022 4:04 PM EST 1. No evidence of significant thecal retention or fecal impaction. Postsurgical changes are noted at the distal rectosigmoid without evidence of acute abnormality 2. Mild edematous appearance of the antrum of the stomach which could be related to underlying gastritis or peptic ulcer disease. Please correlate clinically 3. Mild hepatic steatosis 4. Other incidental findings as above Electronically Signed: Jaime Jeffers 2022 4:04 PM EST Workstation ID: [id number] Ethel 2022 4:[address] ABDOMEN PELVIS W CONTRAST Date of Exam: 2022 3:38 PM EST Indication: epigastric pain, vomiting, fecal impaction. Comparison: 03/03/2015 and prior Technique: Axial CT images were obtained of the abdomen and pelvis following the uneventful intravenous administration of 98 mL Isovue-300. Reconstructed coronal and sagittal images were also obtained. Automated exposure control and iterative construction methods were used. FINDINGS: Abdomen/Pelvis: Lower Chest: Limited imaging of the lung bases is grossly clear. No free air noted below the diaphragm Organs: 1.7 cm cyst noted right kidney. The liver is slightly heterogeneous in appearance and decreased in attenuation. Findings suggest a mild degree of underlying hepatic steatosis. The gallbladder, left kidney, pancreas, spleen and adrenal glands are grossly unremarkable in appearance. Small area of fat within the tail of the pancreas again noted. GI/Bowel: Stomach shows mild edematous wall thickening at the antrum. No obvious ulceration inflammatory change noted. The small bowel is trace no acute abnormality. There is no suspicious mesenteric adenopathy or fluid collection noted. The ileocecal valve appears grossly unremarkable in appearance. The appendix is not identified but no inflammatory changes are noted at the base of the cecum. Partial colectomy noted. Anastomotic site appears unremarkable at the distal rectosigmoid. No evidence of significant stool retention. There is no evidence of fecal impaction. No focal wall thickening or significant inflammatory change noted of the GI tract. No suspicious mesenteric adenopathy. Pelvis: The patient is status post hysterectomy.. Urinary bladder is incompletely distended and grossly unremarkable in appearance. Peritoneum/Retroperitoneum: Aorta is normal in caliber. No suspicious retroperitoneal adenopathy noted. Bones/Soft Tissues: Grade 1 spondylolisthesis at L5-S1 with advanced degenerative changes disc space with loss of disc space height is appreciated. There is moderate to severe narrowing of the neural foramina at L5-S1 bilaterally. Procedure Note Jaime Jeffers MD - 2022 CT ABDOMEN PELVIS W CONTRAST Date of Exam: 2022 3:38 PM EST Indication: epigastric pain, vomiting, fecal impaction. Comparison: 03/03/2015 and prior Technique: Axial CT images were obtained of the abdomen and pelvisfollowing the uneventful intravenous administration of 98 mL Isovue-300.Reconstructed coronal and sagittal images were also obtained. Automatedexposure control and iterative construction methods were used. FINDINGS: Abdomen/Pelvis: Lower Chest: Limited imaging of the lung bases is grossly clear. No freeair noted below the diaphragm Organs: 1.7 cm cyst noted right kidney. The liver is slightly heterogeneous in appearance and decreased inattenuation. Findings suggest a mild degree of underlying hepaticsteatosis. The gallbladder, left kidney, pancreas, spleen and adrenalglands are grossly unremarkable in appearance. Small area of fat within the tail of the pancreas again noted. GI/Bowel: Stomach shows mild edematous wall thickening at the antrum. Noobvious ulceration inflammatory change noted. The small bowel is trace noacute abnormality. There is no suspicious mesenteric adenopathy or fluidcollection noted. The ileocecal valve appears grossly unremarkable in appearance. Theappendix is not identified but no inflammatory changes are noted at thebase of the cecum. Partial colectomy noted. Anastomotic site appearsunremarkable at the distal rectosigmoid. No evidence of significant stool retention. There is no evidence of fecalimpaction. No focal wall thickening or significant inflammatory changenoted of the GI tract. No suspicious mesenteric adenopathy. Pelvis: The patient is status post hysterectomy.. Urinary bladder isincompletely distended and grossly unremarkable in appearance. Peritoneum/Retroperitoneum: Aorta is normal in caliber. No suspiciousretroperitoneal adenopathy noted. Bones/Soft Tissues: Grade 1 spondylolisthesis at L5-S1 with advanceddegenerative changes disc space with loss of disc space height isappreciated. There is moderate to severe narrowing of the neural foraminaat L5-S1 bilaterally. IMPRESSION: 1. No evidence of significant thecal retention or fecal impaction.Postsurgical changes are noted at the distal rectosigmoid without evidenceof acute abnormality 2. Mild edematous appearance of the antrum of the stomach which could berelated to underlying gastritis or peptic ulcer disease. Please correlateclinically 3. Mild hepatic steatosis 4. Other incidental findings as above Electronically Signed: Jaime Jeffers 2022 4:04 PM EST Workstation ID: [id number] Holden Chacon MD IMG CT ORDERABLES Final R esult * (ABNORMAL) Urinalysis With Microscopic If Indicated (No Culture) - Urine, Clean Catch (2022 1:47 PM EST) Color, UA Yellow Yellow, Straw 2022 2:01 PM [facility] Appearance, UA Clear Clear 2022 2:01 PM [facility] pH, UA 6.0 5.0 - 8.0 2022 2:01 PM [facility] Specific [place], UA 1.017 1.001 - 1.030 2022 2:01 PM [facility] Glucose, UA Negative Negative 2022 2:01 PM [facility] Ketones, UA Trace(A) Negative 2022 2:01 PM [facility] Bilirubin, UA Negative Negative 2022 2:01 PM [facility] Blood, UA Negative Negative 2022 2:01 PM [facility] Protein, UA Negative Negative 2022 2:01 PM [facility] Leuk Esterase, UA Negative Negative 2022 2:01 PM [facility] Nitrite, UA Negative Negative 2022 2:01 PM [facility] Urobilinogen, UA 0.2 E.U./dL 0.2 - 1.0 E.U./dL 2022 2:01 PM [facility] Urine Urine specimen obtained by clean catch procedure / Unknown Collection / Unknown 2022 1:47 PM EST 2022 1:56 PM EST [facility] - 2022 2:01 PM EST Urine microscopic not indicated. us Triage Protocol Emergency MD URINE ORDERABLES Fi nal Result LABORATORY
[address] [place] [address], * (ABNORMAL) CBC Auto Differential (2022 1:38 PM EST) WBC 8.97 3.40 - 10.80 10*3/mm3 2022 1:56 PM [facility] RBC 4.73 3.77 - 5.28 10*6/mm3 2022 1:56 PM [facility] Hemoglobin 13.3 12.0 - 15.9 g/dL 2022 1:56 PM [facility] Hematocrit 42.7 34.0 - 46.6 % 2022 1:56 PM [facility] MCV 90.3 79.0 - 97.0 fL 2022 1:56 PM [facility] MCH 28.1 26.6 - 33.0 pg 2022 1:56 PM [facility] MCHC 31.1(L) 31.5 - 35.7 g/dL 2022 1:56 PM [facility] RDW 12.9 12.3 - 15.4 % 2022 1:56 PM [facility] RDW-SD 42.4 37.0 - 54.0 fl 2022 1:56 PM [facility] MPV 8.9 6.0 - 12.0 fL 2022 1:56 PM [facility] Platelets 279 140 - 450 10*3/mm3 2022 1:56 PM [facility] Neutrophil % 51.3 42.7 - 76.0 % 2022 1:56 PM [facility] Lymphocyte % 40.6 19.6 - 45.3 % 2022 1:56 PM [facility] Monocyte % 4.8(L) 5.0 - 12.0 % 2022 1:56 PM [facility] Eosinophil % 2.2 0.3 - 6.2 % 2022 1:56 PM [facility] Basophil % 0.9 0.0 - 1.5 % 2022 1:56 PM [facility] Immature Grans % 0.2 0.0 - 0.5 % 2022 1:56 PM [facility] Neutrophils, Absolute 4.60 1.70 - 7.00 10*3/mm3 2022 1:56 PM EST LABORATORY Lymphocytes, Absolute 3.64(H) 0.70 - 3.10 10*3/mm3 2022 1:56 PM EST LABORATORY Monocytes, Absolute 0.43 0.10 - 0.90 10*3/mm3 2022 1:56 PM [facility] Eosinophils, Absolute 0.20 0.00 - 0.40 10*3/mm3 2022 1:56 PM [facility] Basophils, Absolute 0.08 0.00 - 0.20 10*3/mm3 2022 1:56 PM [facility] Immature Grans, Absolute 0.02 0.00 - 0.05 10*3/mm3 2022 1:56 PM [facility] nRBC 0.0 0.0 - 0.2 /100 WBC 2022 1:56 PM [facility] Blood Venipuncture / Unknown 2022 1:38 PM EST 2022 1:50 PM EST us Triage Protocol Emergency MD LAB BLOOD ORDERABLE S Final Result LABORATORY
[address] [place] [address], * Light Blue Top (2022 1:38 PM EST) Extra Tube Hold for add-ons. 2022 2:45 PM EST LABORATORY Comment:Auto resulted Blood Venipuncture / Unknown 2022 1:38 PM EST 2022 1:50 PM EST us Triage Protocol Emergency MD LAB BLOOD ORDER ONL Y Final Result Performing Organization Address [facility] Co de Phone Number LABORATORY
[address] [place] [address], * Ruiz Top (2022 1:38 PM EST) Extra Tube Hold for add-ons. 2022 5:45 PM EST LABORATORY Comment:Auto resulted. Blood Venipuncture / Unknown 2022 1:38 PM EST 2022 1:50 PM EST Triage Protocol Emergency MD LAB BLOOD ORDER ONL Y Final Result Performing Organization Address [facility] Phone Number LABORATORY
[address] [place] [address], * Gold Top - SST (2022 1:38 PM EST) Extra Tube Hold for add-ons. 2022 2:45 PM EST LABORATORY Comment:Auto resulted. Blood Venipuncture / Unknown 2022 1:38 PM EST 2022 1:50 PM EST Triage Protocol Emergency MD LAB BLOOD ORDER ONL Y Final Result Performing Organization Address [facility] Co de Phone Number LABORATORY
[address] [place] [address], * Lavender Top (2022 1:38 PM EST) Extra Tube hold for add-on 2022 2:45 PM EST LABORATORY Comment:Auto resulted Blood Venipuncture / Unknown 2022 1:38 PM EST 2022 1:50 PM EST Triage Protocol Emergency MD LAB BLOOD ORDER ONL Y Final Result Performing Organization Address [facility] Phone Number LABORATORY
[address] [place] [address], * Green Top (Gel) (2022 1:38 PM EST) Extra Tube Hold for add-ons. 2022 2:45 PM EST LABORATORY Comment:Auto resulted. Blood Venipuncture / Unknown 2022 1:38 PM EST 2022 1:50 PM EST Triage Protocol Emergency MD LAB BLOOD ORDER ONL Y Final Result Performing Organization Address [facility] Number LABORATORY
[address] [place] [address], * Lipase (2022 1:38 PM EST) Lipase 30 13 - 60 U/L 2022 2:18 PM EST LABORATORY Blood Venipuncture / Unknown 2022 1:38 PM EST 2022 1:50 PM EST Triage Protocol Emergency MD LAB BLOOD ORDERABLE S Final Result Performing Organization Address [facility] Phone Number LABORATORY
[address] [place] [address], * (ABNORMAL) Comprehensive Metabolic Panel (2022 1:38 PM EST) Glucose 100(H) 65 - 99 mg/dL 2022 2:18 PM EST LABORATORY BUN 8 6 - 20 mg/dL 2022 2:18 PM EST LABORATORY Creatinine 1.01(H) 0.57 - 1.00 mg/dL 2022 2:18 PM [facility] Sodium 144 136 - 145 mmol/L 2022 2:18 PM [facility] Potassium 4.0 3.5 - 5.2 mmol/L 2022 2:18 PM [facility] Chloride 108(H) 98 - 107 mmol/L 2022 2:18 PM [facility] CO2 26.0 22.0 - 29.0 mmol/L 2022 2:18 PM [facility] Calcium 8.9 8.6 - 10.5 mg/dL 2022 2:18 PM [facility] Total Protein 7.5 6.0 - 8.5 g/dL 2022 2:18 PM [facility] Albumin 4.4 3.5 - 5.2 g/dL 2022 2:18 PM [facility] ALT (SGPT) 9 1 - 33 U/L 2022 2:18 PM [facility] AST (SGOT) 12 1 - 32 U/L 2022 2:18 PM [facility] Alkaline Phosphatase 117 39 - 117 U/L 2022 2:18 PM [facility] Total Bilirubin 0.3 0.0 - 1.2 mg/dL 2022 2:18 PM [facility] Globulin 3.1 gm/dL 2022 2:18 PM [facility] Comment:Calculated Result A/G Ratio 1.4 g/dL 2022 2:18 PM [facility] BUN/Creatinine Ratio 7.9 7.0 - 25.0 2022 2:18 PM [facility] Anion Gap 10.0 5.0 - 15.0 mmol/L 2022 2:18 PM [facility] eGFR 70.1 >60.0 mL/min/1.7 3 2022 2:18 PM EST LABORATORY Blood Venipuncture / Unknown 2022 1:38 PM EST 2022 1:50 PM EST Narrative LABORATORY - 2022 2:18 PM EST GFR Normal >60 Chronic Kidney Disease <60 Kidney Failure <15 us Triage Protocol Emergency MD LAB BLOOD ORDERABLE S Final Result LABORATORY
[address] [place] [address], documented in this encounter Visit Diagnoses Diagnosis Acute gastritis without hemorrhage, unspecified gastritis type- Primary documented in this encounter Administered Medications Inactive Administered Medications - up to 3 most recent administrations Medication Order MAR Action Action Date Dose Rate Site iopamidol (ISOVUE-300) 61 % injection 100 mL 100 mL, Intravenous, Once in Imaging, On [place] 12/04/22 at 1548, For 1 dose Given 2022 3:39 PM EST 98 mL Sodium Chloride (PF) 0.9 % 10 mL 10 mL, Intravenous, As Needed, Line Care, Starting on [place] 12/04/22 at 1329 documented in this encounter Active and Recently Administered Medications Times are shown in EST. Scheduled Medication Order 12/02/2022 12/03/2022 2022 iopamidol (ISOVUE-300) 61 % injection 100 mL (COMPLETED) 100 mL, Intravenous, Once in Imaging, On [place] 12/04/22 at 1548, For 1 dose 1539 (Given - Provid er: Tanner Lopez) PRN Medication Order 12/02/2022 12/03/2022 2022 Sodium Chloride (PF) 0.9 % 10 mL 10 mL, Intravenous, As Needed, Line Care, Starting on Rosenda 12/04/22 at 1329 documented in this encounter Care Teams Procurement Specialist Relationship Specialty Start Date End Date Melodie Brown MD [address] [address] PCP - General Family Medicine 03/21/20 documented as of this encounter
--- OUTSIDE RECORDS SUMMARY | 2024-09-09 08:42 | XMS_ITS | Encounter Summary ---
Author Organization [facility] Address [address] [place] [address] Care Team Providers Care Creative Services Manager Name Role Phone Provider, No Known Primary Care Provider Unavail able Reason for Referral * Physical Therapy (Routine) - Closed Specialty Diagnoses / Procedures Referred By Violeta parish Referred To Contact Diagnoses Vocal cord dysfunction Unique Payne APRN [address] [place] [address] Phone: tel: fax: [facility] [address] [place] [address] Phone: tel: fax: Referral ID Status Reason Start Date Expiration Date V isits Requested Visits Authorized [id number] Closed Specialty Services Required 02/24/2020 02/23/2021 1 1 Reason for Visit * Reason Comments Shortness of Breath f/u Wheezing Encounter Details Date Type Department Care Team (Late st Contact Info) Description 02/24/2020 9:30 AM EDT Office Visit [facility] [address] [place] [id number] Unique Pyane APRN [address] [place] [address] PEREZ (dyspnea on exertion) (Primary Dx); Other fatigue; Non-seasonal allergic rhinitis, unspecified trigger; Wheezing; GERD with esophagitis; Vocal cord dysfunction Social History Tobacco Use Types Packs/Day Years [...] 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 Not on file Not on file documented as of this encounter Last Filed Vital Signs Vital Sign Reading Time Taken Comments Blood Pressure 130/82 02/24/2020 9:11 AM EDT Pulse 79 02/24/2020 9:11 AM EDT Temperature 36.9 ??C (98.4 ??F) 02/24/2020 9 :11 AM EDT Respiratory Rate 16 02/24/2020 9:11 AM EDT Oxygen Saturation 99% 02/24/2020 9:1 1 AM EDT room air at rest Inhaled Oxygen Concentration - - Weight 95.9 kg (211 lb 6 oz) 02/24/2020 9:11 AM EDT Height 163.8 cm (5' 4.5 ) 02/24/2020 9: 11 AM EDT Body Mass Index 35.72 02/24/2020 9:11 AM EDT documented in this encounter Progress Notes * Unique Payne APRN - 02/24/2020 9:30 AM EDT [facility] Follow up CHIEF COMPLAINT Wheezing HISTORY OF PRESENT ILLNESS Sherley Alonso is a 44 y.o.female here today for follow-up of her wheezing. She was last seen by Dr. Weaver earlier this month for a new patient. She was referred to our office for shortness of breath and wheezing. Since her last appointment she has an echocardiogram and a barium swallow completed and is here today for the results. She continues to use Flovent twice a day for her shortness of breath. She also has nebulizers at home that she uses about every 4 hours. She has shortness of breath with any exertion. She states thatshe wheezes throughout the day. She denies fever, chills, sputum production, hemoptysis, night sweats, weight loss, chest pain or palpitations. She denies any lower extremity edema or calf tenderness. She does have some postnasal drainage and rhinorrhea occasionally. She also has difficulty with her allergies. She is currently onSingulair nightly. She states that her reflux symptoms have improved with Protonix twice a day. Shedoes not have that reflux in her back of her throat on a regular basis now. She does not follow reflux precautions. She continues to smoke less than half pack per day. She has a 28-year pack history. She is interested in medication aids to help quit smoking. She is up-to-date on her current vaccinations. She is accompanied today by her mother. Patient Active Problem List Diagnosis ??? PEREZ (dyspnea on exertion) ??? Wheezing ??? GERD with esophagitis Allergies Allergen Reactions ??? Codeine Rash and GI Intolerance ??? Imitrex [Sumatriptan] Rash and GI Intolerance Current Outpatient Medications: ??? albuterol (PROVENTIL) (2.5 [...] by mouth Daily., Disp: , Rfl: ??? fluticasone (FLOVENT HFA) 220 MCG/ACT inhaler, Inhale 1 puff 2 (Two) Times a Day. 2 puffs twicedaily, with spacer, Disp: 1 inhaler, Rfl: 12 ??? hydrOXYzine pamoate (VISTARIL) 25 MG capsule, [...] mouth Every Night., Disp: , Rfl: ??? nicotine (Nicotrol) 10 MG inhaler, Inhale 1 puff As Needed for Smoking Cessation., Disp: 168 each, Rfl: 3 ??? nystatin (MYCOSTATIN) 266160 UNIT/ML suspension, Swish and swallow 500,000 Units 4 (Four) Timesa Day., Disp: , Rfl: ??? pantoprazole (PROTONIX) 40 MG EC tablet, Take 1 tablet by mouth Every 12 (Twelve) Hours., Disp:60 tablet, Rfl: 12 ??? propranolol (INDERAL) 20 MG tablet, Take 20 mg by mouth 3 (Three) Times a Day., Disp: , Rfl: ??? topiramate (TOPAMAX) 100 MG tablet, Take 100 mg by mouth 2 (Two) Times a Day., Disp: , Rfl: MEDICATION LIST AND ALLERGIES REVIEWED. Social History Tobacco Use ??? Smoking status: Current Every Day Smoker Packs/day: 1.00 Years: 28.00 Pack years: 28.00 Types: Cigarettes ??? Smokeless tobacco: Never Used Substance Use Topics ??? Alcohol use: Never Frequency: Never ??? Drug use: Never FAMILY AND SOCIAL HISTORY REVIEWED. Review of Systems Constitutional: Positive for fatigue. Negative for activity change, appetite change, fever and unexpected weight change. HENT: Positive for postnasal drip and rhinorrhea. Negative for congestion, sinus pressure, sore throat and voice change. Eyes: Negative for visual disturbance. Respiratory: Positive for cough, shortness of breath and wheezing. Negative for chest tightness. Cardiovascular: Negative for chest pain, palpitations and leg swelling. Gastrointestinal: Negative for abdominal distention, abdominal pain, nausea and vomiting. Endocrine: Negative for cold intolerance and heat intolerance. Genitourinary: Negative for difficulty urinating and urgency. Musculoskeletal: Negative for arthralgias, back pain and neck pain. Skin: Negative for color change and pallor. Allergic/Immunologic: Negative for environmental allergies and food allergies. Neurological: Negative for dizziness, syncope, weakness and light-headedness. Hematological: Negative for adenopathy. Does not bruise/bleed easily. Psychiatric/Behavioral: Negative for agitation and behavioral problems. . BP 130/82 (BP Location: Left arm, Patient Position: Sitting, Cuff Size: Adult) Pulse 79 Temp 98.4 ??F (36.9 ??C) Resp 16 Ht 163.8 cm (64.5 ) Wt 95.9 kg (211 lb 6 oz) LMP (LMP Unknown) SpO2 99% Comment: room air at rest BMI 35.72 kg/m?? Immunization History Administered Date(s) Administered ??? Influenza, Unspecified 07/13/2019 ??? Pneumococcal, Unspecified 07/13/2019 Physical Exam Constitutional: She is oriented to person, place, and time. She appears well- developed and well-nourished. HENT: Head: Normocephalic and atraumatic. Eyes: Pupils are equal, round, and reactive to light. Neck: Normal range of motion. Neck supple. No thyromegaly present. Cardiovascular: Normal rate, regular rhythm, normal heart sounds and intact distal pulses. Exam reveals no gallop and no friction rub. No murmur heard. Pulmonary/Chest: Effort normal and breath sounds normal. No respiratory distress. She has no wheezes. She has no rales. She exhibits no tenderness. Abdominal: Soft. Bowel sounds are normal. There is no tenderness. Musculoskeletal: Normal range of motion. She exhibits no edema. Lymphadenopathy: She has no cervical adenopathy. Neurological: She is alert and oriented to person, place, and time. Skin: Skin is warm and dry. Capillary refill takes less than 2 seconds. She is not diaphoretic. Psychiatric: She has a normal mood and affect. Her behavior is normal. Nursing note and vitals reviewed. RESULTS Fl Esophagram Complete Result Date: 02/20/2020 Mild gastroesophageal reflux to the level of the midesophagus. This report was finalized on 02/20/2020 10:[address] Mike Cagle MD. ECHO 02/17/20: Interpretation Summary ?? Normal LVSF ?? No significant valvular heart disease Chest PA/lateral: Official report pending PROBLEM LIST Problem List Items Addressed This Visit Respiratory PEREZ (dyspnea on exertion) - Primary Relevant Orders XR Chest PA & Lateral IgE Level Alpha - 1 - Antitrypsin Wheezing Digestive GERD with esophagitis Other Visit Diagnoses Other fatigue Relevant Orders CBC & Differential Comprehensive Metabolic Panel TSH CBC Auto Differential Non-seasonal allergic rhinitis, unspecified trigger Relevant Orders Allergens, Zone 8 DISCUSSION Ms. Alonso was here for follow-up of her wheezing. She did have a esophagram and an echo performed since her last appointment with Dr. Weaver and she is here today for the results. We did goover the esophagram which did show mild reflux to the level of the midesophagus. She will continue Protonix twice a day. We also went over reflux precautions such as elevating the head of the bed at n ight, not eating to 3 hours before bed and avoiding foods that trigger reflux symptoms. I did give her written instructions on these reflux precautions as well. I do suspect that this is 1 of the culprits for her wheezing. We also reviewed her echocardiogram in the office today which showed normal ejection fraction and no abnormalities. We reviewed her chest x-ray in the office today as she was complaining of some mid back pain and itappears to have no acute pulmonary process however the full shoulder report is pending. She does not appear to be infected in the office today as she was having no fevers or sputum production. I am going to refer her to a speech pathologist for vocal cord dysfunction. I do suspect that this is the cause of some of her wheezing as well. She is agreeable to start this therapy. She will continue to use her Flovent twice a day for her dyspnea and her nebulizers as needed for shortness of breath or wheezing. She states that she has not had any lab work completed in quite some time and does not have a PCP as of currently. I am going to order some lab work to be completed to rule out any other causes of her fatigue. If anything is abnormal I will notify her PCP. She states that she is going to find a PCPin the near future to establish care with. She did not want referral placed today. She will follow-up in [address] Weaver or sooner if her symptoms worsen. She will callwith any additional concerns or questions. I spent 25 minutes with the patient and family. I spent > 50% percent of this time counseling and discussing diagnosis, prognosis, diagnostic testing, evaluation, current status, treatment optionsand management. Unique Payne APRN 02/24/202010:24 AM Electronically signed Please note that portions of this note were completed with a voice recognition program. Efforts were made to edit the dictations, but occasionally words are mistranscribed. CC: Provider, No Known documented in this encounter Plan of Treatment Not on file documented as of this encounter Procedures Procedure Name Priority Date/Time Associated Diagnosis Comments ALLERGENS, ZONE 8 Routine 02/24/2020 9:5 7 AM EDT Non-seasonal allergic rhinitis, unspecified trigger CBC WITH AUTO DIFFERENTIAL Routine 02/24/2020 9:57 AM EDT Other fatigue [id number] Routine 02/24/2020 9 :57 AM EDT PEREZ (dyspnea on exertion) CBC AND DIFFERENTIAL Routine 02/24/2020 9:57 AM EDT Other fatigue TSH Routine 02/24/2020 9:57 AM EDT Other fatigue IGE Routine 02/24/2020 9:57 AM EDT PEREZ (dyspnea on exertion) COMPREHENSIVE METABOLIC PANEL Routine 02/24/2020 9:57 AM EDT Other fatigue XR CHEST PA AND LATERAL Routine 02/24/2020 9:47 AM EDT PEREZ (dyspnea on exertion) documented in this encounter Results * (ABNORMAL) CBC Auto Differential (02/24/2020 9:57 AM EDT) WBC 11.77(H) 3.40 - 10.80 10*3/mm3 02/25/2020 1:56 AM EDT [facility] RBC 4.54 3.77 - 5.28 10*6/mm3 02/25/2020 1:56 AM EDT [facility] Hemoglobin 12.7 12.0 - 15.9 g/dL 02/25/2020 1:56 AM [facility] Hematocrit 39.6 34.0 - 46.6 % 02/25/2020 1:56 AM [facility] MCV 87.2 79.0 - 97.0 fL 02/25/2020 1:56 AM [facility] MCH 28.0 26.6 - 33.0 pg 02/25/2020 1:56 AM [facility] MCHC 32.1 31.5 - 35.7 g/dL 02/25/2020 1:56 AM [facility] RDW 13.7 12.3 - 15.4 % 02/25/2020 1:56 AM [facility] RDW-SD 44.4 37.0 - 54.0 fl 02/25/2020 1:56 AM [facility] MPV 9.0 6.0 - 12.0 fL 02/25/2020 1:56 AM [facility] Platelets 313 140 - 450 10*3/mm3 02/25/2020 1:56 AM [facility] Neutrophil % 64.0 42.7 - 76.0 % 02/25/2020 1:56 AM [facility] Lymphocyte % 25.5 19.6 - 45.3 % 02/25/2020 1:56 AM [facility] Monocyte % 4.8(L) 5.0 - 12.0 % 02/25/2020 1:56 AM [facility] Eosinophil % 4.5 0.3 - 6.2 % 02/25/2020 1:56 AM [facility] Basophil % 0.8 0.0 - 1.5 % 02/25/2020 1:56 AM [facility] Immature Grans % 0.4 0.0 - 0.5 % 02/25/2020 1:56 AM [facility] Neutrophils, Absolute 7.53(H) 1.70 - 7.00 10*3/mm3 02/25/2020 1:56 AM [facility] Lymphocytes, Absolute 3.00 0.70 - 3.10 10*3/mm3 02/25/2020 1:56 AM EDT [facility] Monocytes, Absolute 0.57 0.10 - 0.90 10*3/mm3 02/25/2020 1:56 AM EDT [facility] Eosinophils, Absolute 0.53(H) 0.00 - 0.40 10*3/mm3 02/25/2020 1:56 AM EDT [facility] Basophils, Absolute 0.09 0.00 - 0.20 10*3/mm3 02/25/2020 1:56 AM EDT [facility] Immature Grans, Absolute 0.05 0.00 - 0.05 10*3/mm3 02/25/2020 1:56 AM EDT [facility] nRBC 0.0 0.0 - 0.2 /100 WBC 02/25/2020 1:56 AM EDT [facility] Blood Venipuncture / Unknown 02/24/2020 9:57 AM EDT 02/24/2020 9:57 AM EDT [employer] STATEMENT CLERKS SUPERVISOR LAB BLOOD ORDERABLES Final Result Performing Organization Address [facility]/ZIP Co de Phone Number [facility]
[address] [place] [address], * TSH (02/24/2020 9:57 AM EDT) TSH 1.280 0.270 - 4.200 uIU/mL 02/25/2020 2:23 AM EDT [facility] Comment:TSH results may be f alsely decreased if patient taking Biotin. Blood Venipuncture / Unknown 02/24/2020 9:57 AM EDT 02/24/2020 9:57 AM EDT Unique Rivanna MedicalKerry STATEMENT CLERKS SUPERVISOR LAB BLOOD ORDERABLES Final Result Performing Organization Address City/[facility]/ZIP Co de Phone Number [facility]
[address] [place] [address], [place] [phone] * Alpha - 1 - Antitrypsin (02/24/2020 9:57 AM EDT) Pathologist [facility] A-1 Antitrypsin 127 101 - 187 mg/dL 02/26/2020 8:07 AM EDT [facility] Blood Venipuncture / Unknown 02/24/2020 9:57 AM EDT 02/25/2020 7:52 AM EDT Narrative [facility] - 02/26/2020 8:07 AM EDT Performed at: ??01 - [facility], [place], [place] [id number] Customer Experience Retail Clerk: Alex Portillo PhD, Phone: ??[phone] Unique Payne STATEMENT CLERKS SUPERVISOR LAB BLOOD ORDERABLES Final Result [facility] [address] [place] [address], * Allergens, Zone 8 (02/24/2020 9:57 AM EDT) Pathologist [facility] Class Description Comment 020 11:06 PM EDT [facility] Comment: ?Levels of Specific IgE ? Class ??Description of Class ?----- ? < 0.10 ? 0 ? Negative ? 0.10 - ?0.31 ? 0/I ? Equivocal/Low ? 0.32 - ?0.55 ? I ? Low ? 0.56 - ?1.40 ? II ?Moderate ? 1.41 - ?3.90 ? III ? High ? 3.91 - ?? 19.00 ? IV ?Very High ?19.01 - ??100.00 ? V ? Very High ?>100.00 ?Very High D. pteronyssinus (dust mite) <0.10 Class 0 kU/L 02/29/2020 11:06 PM EDT [facility] D. farinae (dust mite) <0.10 Class 0 kU/L 02/29/2020 11:06 PM EDT [facility] Cat Dander <0.10 Class 0 kU/L 02/29/2020 11:06 PM EDT [facility] Dog Dander, IgE <0.10 Class 0 kU/L 02/29/2020 11:06 PM EDT [facility] B[place] Grass <0.10 Class 0 kU/L 02/29/2020 11:06 PM EDT [facility] [place] Blue[place] IgE <0.10 Class 0 kU/L 02/29/2020 11:06 PM EDT [facility] Singh Grass <0.10 Class 0 kU/L 02/29/2020 11:06 PM EDT [facility] Bahia Grass <0.10 Class 0 kU/L 02/29/2020 11:06 PM EDT [facility] Cockroach, Venezuelan <0.10 Class 0 kU/L 02/29/2020 11:06 PM EDT [facility] Penicillium chrysogen <0.10 Class 0 kU/L 02/29/2020 11:06 PM EDT [facility] Cladosporium herbarum <0.10 Class 0 kU/L 02/29/2020 11:06 PM EDT [facility] Aspergillus fumigatus <0.10 Class 0 kU/L 02/29/2020 11:06 PM EDT [facility] Mucor racemosus <0.10 Class 0 kU/L 02/29/2020 11:06 PM EDT [facility] Alternaria alternata <0.10 Class 0 kU/L 02/29/2020 11:06 PM EDT [facility] Stemphylium herbarum <0.10 Class 0 kU/L 02/29/2020 11:06 PM EDT [facility] [place], White <0.10 Class 0 kU/L 02/29/2020 11:06 PM EDT [facility] Elm, Venezuelan <0.10 Class 0 kU/L 02/29/2020 11:06 PM EDT [facility] Maple/[place] <0.10 Class 0 kU/L 02/29/2020 11:06 PM EDT [facility] Hazelnut Tree <0.10 Class 0 kU/L 02/29/2020 11:06 PM EDT [facility] [place], White <0.10 Class 0 kU/L 02/29/2020 11:06 PM EDT [facility] Maple [place] <0.10 Class 0 kU/L 02/29/2020 11:06 PM EDT [facility] White [place] <0.10 Class 0 kU/L 02/29/2020 11:06 PM EDT [facility] [place], Mountain <0.10 Class 0 kU/L 02/29/2020 11:06 PM EDT [facility] Sweet Gum <0.10 Class 0 kU/L 02/29/2020 11:06 PM EDT [facility] Ragweed, Common/Short <0.10 Class 0 kU/L 02/29/2020 11:06 PM EDT [facility] Mugwort <0.10 Class 0 kU/L 02/29/2020 11:06 PM EDT [facility] Mauritanian Plantain <0.10 Class 0 kU/L 02/29/2020 11:06 PM EDT [facility] Pigweed, Rough/Common <0.10 Class 0 kU/L 02/29/2020 11:06 PM EDT [facility] Sheep [place] <0.10 Class 0 kU/L 02/29/2020 11:06 PM EDT [facility] Nettle <0.10 Class 0 kU/L 02/29/2020 11:06 PM EDT [facility] Blood Venipuncture / Unknown 02/24/2020 9:57 AM EDT 02/24/2020 9:57 AM EDT Narrative [facility] - 02/29/2020 11:06 PM EDT Test(s) [id number] Cockroach, Venezuelan; [id number] [place], White; [id number] Sweet Gum were developed and had performance characteristics determined by [facility]. These tests have not been cleared or approved by the U.S. Food and Drug Administration. The FDA has determined that such clearance or approval is not necessary. These tests are used for clinical purposes. These should not be regarded as investigational or for research. Performed at: ??01 - [address] ??[id number] Customer Experience Retail Clerk: Barry Thomson MD, Phone: ??[phone] Unique [facility] LAB BLOOD ORDERABLES Final Result Performing Organization Address [facility] de Phone Number [facility] [address] [place] [address], [place] [phone] * IgE Level (02/24/2020 9:57 AM EDT) IgE 91 6 - 495 IU/mL 02/29/2020 7:08 AM EDT [facility] Blood Venipuncture / Unknown 02/24/2020 9:57 AM EDT 02/24/2020 9:57 AM EDT Narrative [facility] - 02/29/2020 7:08 AM EDT Performed at: ??[address] - [address] ??[id number] Customer Experience Retail Clerk: Barry Thomson MD, Phone: ??[phone] Unique Jovon Kerry STATEMENT CLERKS SUPERVISOR LAB BLOOD ORDERABLES Final Result Performing Organization Address [facility] de Phone Number [facility] [address] [place] [id number], [place] [phone] * (ABNORMAL) Comprehensive Metabolic Panel (02/24/2020 9:57 AM EDT) [facility] Glucose 91 65 - 99 mg/dL 02/25/2020 2:13 AM EDT [facility] BUN 14 6 - 20 mg/dL 02/25/2020 2:13 AM T [facility] Creatinine 1.05(H) 0.57 - 1.00 mg/dL 02/25/2020 2:13 AM EDT [facility] Sodium 139 136 - 145 mmol/L 02/25/2020 2:13 AM T [facility] Potassium 3.8 3.5 - 5.2 mmol/L 02/25/2020 2:13 AM EDT [facility] Chloride 105 98 - 107 mmol/L 02/25/2020 2:13 AM [facility] CO2 25.7 22.0 - 29.0 mmol/L 02/25/2020 2:13 AM EDT [facility] Calcium 9.2 8.6 - 10.5 mg/dL 02/25/2020 2:13 AM [facility] Total Protein 7.5 6.0 - 8.5 g/dL 02/25/2020 2:13 AM T [facility] Albumin 4.30 3.50 - 5.20 g/dL 02/25/2020 2:13 AM [facility] ALT (SGPT) 12 1 - 33 U/L 02/25/2020 2:13 AM EDT [facility] AST (SGOT) 12 1 - 32 U/L 02/25/2020 2:13 AM [facility] Alkaline Phosphatase 85 39 - 117 U/L 02/25/2020 2:13 AM T [facility] Total Bilirubin <0.2(L) 0.2 - 1.2 mg/dL 02/25/2020 2:13 AM T [facility] eGFR Non Amer 57(L) >60 mL/min/1.7 3 02/25/2020 2:13 AM EDT [facility] Globulin 3.2 gm/dL 02/25/2020 2:13 AM EDT [facility] A/G Ratio 1.3 g/dL 02/25/2020 2:13 AM EDT [facility] BUN/Creatinine Ratio 13.3 7.0 - 25.0 02/25/2020 2:13 AM EDT [facility] Anion Gap 8.3 5.0 - 15.0 mmol/L 02/25/2020 2:13 AM EDT [facility] Blood Venipuncture / Unknown 02/24/2020 9:57 AM EDT 02/24/2020 9:57 AM EDT Narrative [facility] - 02/25/2020 2:13 AM EDT GFR Normal >60 Chronic Kidney Disease <60 Kidney Failure <15 Unique Rued[place] [facility] LAB BLOOD ORDERABLES Final Result [facility]
[address] [place] [address], * XR Chest PA & Lateral (02/24/2020 [...] by Dr. Rose Lindsay MD. Unique Payne APRN IMG DIAGNOSTIC IMAGING ORD ERABLES Final Result documented in this encounter Visit Diagnoses Diagnosis PEREZ (dyspnea on exertion)- Primary Other dyspnea and respiratory abnormality Other fatigue Non-seasonal allergic rhinitis, unspecified trigger Wheezing GERD with esophagitis Vocal cord dysfunction Other diseases of vocal cords documented in this encounter Care Teams Creative Services Manager Relationship Specialty Start Date End Date Provider, [place] [address] PCP - General 02/24/20 03/20/20 documented as of this encounter
--- OUTSIDE RECORDS SUMMARY | 2024-09-09 08:42 | XMS_ITS | Clinical Summary ---
Author Organization [facility] Address [address] [place] [address] Care Team Providers Care Rn Plastic Surgery Name Role Phone Melodie Brown MD Primary Care Provider [phone] Allergies Active Allergy Reactions Criticality Noted Date Comments Codeine Rash,GI Intolerance Low 02/06/2020 Sumatriptan Rash,GI Intolerance Low 02/06/2020 Latex Anaphylaxis High 2022 Medications nystatin (MYCOSTATIN) 518847 UNIT/ML suspension Swish and swallow 5 mL 4 (Four) Times a Day. Active amitriptyline (ELAVIL) 100 MG tablet Take 1 tablet by mouth Every Night. Active montelukast (SINGULAIR) 10 MG tablet Take 10 mg by mouth Every Night. Active propranolol (INDERAL) 20 MG tablet Take 1 tablet by mouth 3 (Three) Times a Day. Active levothyroxine (SYNTHROID, LEVOTHROID) 50 MCG tablet Take 50 mcg by mouth Daily. Active hydrOXYzine pamoate (VISTARIL) 25 MG capsule Take 25 mg by mouth 3 (Three) Times a Day As Needed for Itching. Active FLUoxetine (PROzac) 20 MG capsule Take 2 capsules by mouth Daily. Active topiramate (TOPAMAX) 100 MG tablet Take 100 mg by mouth 2 (Two) Times a Day. Active albuterol sulfate HFA 108 (90 Base) MCG/ACT inhaler Inhale 2 puffs Every 4 (Four) Hours As Needed for Wheezing. Active albuterol (PROVENTIL) (2.5 MG/3ML) 0.083% nebulizer solution Take 2.5 mg by nebulization Every 4 (Four) Hours As Needed for Wheezing. Active ipratropium-alb uterol (DUO-NEB) 0.5-2.5 mg/3 ml nebulizer Take 3 mL by nebulization Every 4 (Four) Hours As Needed for Wheezing. Active pantoprazole (PROTONIX) 40 MG EC tablet Take 1 tablet by mouth Every 12 (Twelve) Hours. 60 tablet 12 0 Active nicotine (Nicotrol) 10 MG inhaler Inhale 1 puff As Needed for Smoking Cessation. 168 each 3 0 Active Fluticasone Furoate 200 MCG/ACT aerosol powderIndicatio ns:Wheezing Inhale 1 Act Daily. 90 each 3 0 Active escitalopram (LEXAPRO) 20 MG tablet Take 1 tablet by mouth Daily. Active sucralfate (CARAFATE) 1 g tablet Take 1 tablet by mouth 4 (Four) Times a Day Before Meals & at Bedtime. 60 tablet 3 Active dicyclomine (BENTYL) 20 MG tablet Take 1 tablet by mouth Every 6 (Six) Hours As Needed (pain). 20 tablet 3 Active famotidine (PEPCID) 40 MG tablet Take 1 tablet by mouth Daily. 15 tablet 3 Active Active Problems Problem Noted Date Diagnosed Date PEREZ (dyspnea on exertion) 02/06/2020 Wheezing 02/06/2020 GERD with esophagitis 02/06/2020 Immunizations Name Administration Dates Next Due Influenza, Unspecified 07/13/2019 Pneumococcal, Unspecified 07/13/2019 Family History Medical History Relation Name Comments Asthma Brother 1 Blindness Brother 1 Hypertension Brother 2 Hypertension Brother 3 Coronary artery disease Father Diabetes Father Emphysema Maternal Grandmother Asthma Mother Diabetes Mother Relation Name Status Comments Brother 1 Alive Brother 2 Alive Brother 3 Alive Father Alive Maternal Grandfather Maternal Grandmother Mother Alive Paternal Grandfather Paternal Grandmother Social History Tobacco Use Types Packs/Day Years [...] Industry Job Start Date Job End Date [employer] Not on file Not on file Not on file Last Filed Vital Signs [...] Mass Index 28.73 2022 1:27 PM EST Plan of Treatment Health Maintenance Due Date Last Done Comments Annual Gynecologic Pelvic an d Breast Exam 1977 COLOGUARD 1977 COLON CANCER SCREENING 5 YEA R SIGMOID[address]COPY [address] COLONOGRAPHY 1977 FECAL OCCULT BLOOD TEST 1977 FIT Testing (1 year) 1977 Pneumococcal Vaccine 0-64 (1 of 2 - PCV) 12/05/1983 07/13/2019 TDAP/TD VACCINES (1 - Tdap) 1996 MAMMOGRAM 2017 ANNUAL PHYSICAL 01/30/2020 HEPATITIS C SCREENING 01/30/2020 PAP SMEAR 01/30/2020 COLONOSCOPY 07/29/2022 07/29/2012 COLORECTAL CANCER SCREENING 07/29/2022 INFLUENZA VACCINE 04/04/2024 07/30/2021, , 08/27/2015, Additional history exists COVID-19 Vaccine (3 - 2023-2 5 season) 2024 01/31/2021, 12/31/2020 Insurance [place] [address] Care Teams Rn Plastic Surgery Relationship Specialty Start Date End Date Melodie Brown MD [address] [place] [id number] PCP - General Family Medicine 03/21/20
[2024-09-09 08:51] VITALS: BP 129/82; PULSE 109; RESP 26; TEMP 36.7; O2SAT 99; BMI 28.7
--- NOTE | 2024-09-09 08:53 | XR_ITS ---
FINAL REPORT CLINICAL HISTORY: SHORTNESS OF BREATH COMPARISON: 07/29/2022 FINDINGS: Two views of the chest were obtained. The heart size and pulmonary vascularity are within normal limits. The mediastinum is normal. No acute pulmonary abnormality is identified. There is no pneumothorax. The bony thorax is intact. IMPRESSION: No active cardiopulmonary disease. Reviewed, Interpreted and Dictated by Best Levy III, MD Transcribed by Josee Bello Authenticated and [facility]
[2024-09-09] MEDS: IPRATROPIUM/ALBUTEROL 3 ML NEB IH (08:59)
[2024-09-09] MEDS: LIDOCAINE 1% 5ML PF VIAL IM (09:26)
[2024-09-09] MEDS: DEXAMETHASONE 4MG/ML 1ML VIAL 8 MG IM (09:26)
[2024-09-09] MEDS: cefTRIAXone 1GM VIAL 1 GM IM (09:26)
--- NOTE | 2024-09-09 09:28 | ED_ITS ---
Discharge Plan Disposition Patient Disposition: Home, Self-Care Condition: Good Prescriptions Prescriptions: New azithromycin [Zithromax] 250 mg tablet 250 mg PO UD DOSE PK Qty: 6 0RF Rx Instructions: Take two (2) tablets today, then one (1) tablet days #2 thru #5 methylprednisolone 4 mg Tablets,Dose Pack 4 mg PO DIRECTED 6 Days Qty: 21 0RF Rx Instructions: Take 1 pack as directed for 6 days albuterol sulfate [Ventolin HFA] 90 mcg/actuation HFA aerosol inhaler 2 puff inhalation Q6H PRN (Reason: shortness of breath or wheezing) Qty: 6.7 0RF fluticasone propionate 220 mcg/actuation HFA aerosol inhaler 1 puff inhalation BID 30 Days Qty: 12 2RF benzonatate 100 mg capsule 100 mg PO TIDP PRN (Reason: Cough) Qty: 30 0RF No Action topiramate 100 MG tablet 100 mg PO DAILY meclizine 25 MG tablet,chewable 25 mg PO TID PRN (Reason: Dizziness) Qty: 15 0RF Referrals Follow up/Referrals: Provider,Referral, MD [Primary Care Provider] - See instructions Activity Restrictions/Add. Instructions Additional Instructions/Restrictions: Drink plenty of fluids. Take tylenol or ibuprofen for pain or fever. Take the medications as directed. Follow up with your regular doctor. GO TO THE ER FOR ANY WORSENING SYMPTOMS Don't start the oral steroids (medrol dose pack) until tomorrow since you had the shot here Clinical Impressions Clinical Impression: Asthma exacerbation Stand Alone Forms Stand Alone Forms: Work/School Release Instructions Patient Instructions: DI for Asthma -- Adult, Fluticasone Oral Inhalation, Albuterol Oral Inhalation Print Language Print Language: Scottish Discharge ED Provider: Leonardo Coates [facility] [place] HPI General Stated complaint: Cough and SOA Mode of Arrival: Ambulatory Source of Information: Patient Time Seen by Provider: 09/09/24 09:28 Description of Symptoms (Recalled from Triage Doc. by RN): RIGHT LUNG PAIN RADIATING INTO BACK, WHEEZING, SOB HEENT Symptoms (Recalled from RN notes): No Resp Symptoms (Recalled from RN notes): Yes Skin Symptoms (Recalled from RN notes): No MS Symptoms (Recalled from RN notes): No Functional Status (Recalled from RN notes): WNL History of Present Illness Provider Complaint: She states that for the past 3 days she has had worsening wheezing and chest tightness. She has a history of asthma. She states that she is out of her flovent inhaler and rescue inhaler. Related Data Home Medications ?Medication ?Instructions ?Recorded ?Confirmed topiramate 100 mg tablet 100 mg PO DAILY MIGRAINES 03/12/21 09/09/24 Previous Rx's ?Medication ?Instructions ?Recorded meclizine 25 mg chewable tablet 25 mg PO TID PRN Dizziness #15 tabs 03/12/21 albuterol sulfate 90 mcg/actuation 2 puff inhalation Q6H PRN 09/09/24 aerosol inhaler (Ventolin HFA) shortness of breath or wheezing #6.7 grams azithromycin 250 mg tablet 250 mg PO UD DOSE PK #6 tabs 09/09/24 (Zithromax) benzonatate 100 mg capsule 100 mg PO TIDP PRN Cough #30 caps 09/09/24 fluticasone propionate 220 1 puff inhalation BID 30 days #12 09/09/24 mcg/actuation HFA aerosol inhaler grams methylprednisolone 4 mg tablets in 4 mg PO DIRECTED 6 days #21 tabs 09/09/24 a dose pack Allergies Allergy/AdvReac Type Severity Reaction Status Date / Time codeine (CODEINE) Allergy Mild Verified 10/16/21 12:37 latex Allergy Verified 10/16/21 12:37 sumatriptan (From Imitrex) Allergy body feels Verified 10/16/21 12:37 like its on fire Worker's Comp Is this a Worker's Comp case?: No [facility] Disclaimer: The information contained in this section may have been updated after the michelleen марина was seen, as this information can be updated by other users. Social History Smoking Status: Current every day smoker tobacco type: cigarettes packs per day: 1 second hand exposure: Yes alcohol intake: never substance use type: denies use current occupational status: other Travel in the last 8 weeks: None household members: children housing: house caffeine: Yes ROS Obtained: Yes All systems reviewed & no additional complaints except as documented Constitutional Constitutional: Denies chills and Denies fever(s) Eyes Eyes: Denies eye discharge ENT Ears, Nose, Mouth, and Throat: Denies dizziness, Denies otalgia and Denies sore throat Cardiovascular Cardiovascular: Denies chest pain Respiratory Respiratory: Denies shortness of breath, Reports chest congestion, Denies cough, Denies stridor and Reports wheezing Gastrointestinal Gastrointestingal: Denies nausea or vomiting Musculoskeletal Musculoskeletal: Reports system reviewed and no additional complaints, except as documented and Denies arthralgias Integumentary/Breasts Skin/Breast: Denies rash Neurologic Neurologic: Denies dizziness and Denies paresthesias Allergic/Immunologic Allergic/Immunologic: Reports wheezing Physical Exam General General appearance: alert and in no apparent distress Head Head exam: atraumatic, normocephalic and normal inspection Eye Eye exam: Present normal appearance, PERRL and EOMI ENT ENT exam: Present normal exam, normal oropharynx, mucous membranes moist, TM's normal bilaterally and normal external ear exam Neck Neck exam: Present normal inspection, full ROM and trachea midline; Absent meningismus or lymphadenopathy Chest Chest inspection: Present normal inspection and symmetric chest wall rise; Absent tenderness Respiratory Respiratory exam: Present normal lung sounds bilaterally; Absent respiratory distress Cardiovascular Cardiovascular exam: Present regular rate and normal rhythm; Absent JVD Abdominal Exam Abdominal exam: Present soft and normal bowel sounds; Absent distention, tenderness or guarding Extremities Exam Extremities exam: Present normal inspection, full ROM and normal capillary refill; Absent calf tenderness Back Exam Back exam: Present normal inspection; Absent tenderness Neurological Exam Neurological exam: Present alert and oriented X3 Psychiatric Psychiatric exam: Present normal affect and normal mood Skin Skin exam: Present warm, dry, intact and normal color Lymphatic Lymphatic Findings: no adenopathy Medical Decision Making Medical Records Medical records reviewed: No I reviewed the patient's medical records. Screening: Per USPSTF and CDC recommendations, given the prevalence of disease in our region, it is our hospital?s policy to screen for HIV and viral Hepatitis for all patients aged 18 and over and those with ongoing risk factors. Marcelo Inquiry Pt receiving controlled substance: No Vital Signs: 09/09/24 08:51 Temperature 98.1 F Temperature Source Oral Pulse Rate [Left Radial] 109 H Respiratory Rate 26 H Blood Pressure [Left Arm] 129/82 Blood Pressure Mean [Left Arm] 97 02 Sat by Pulse Oximetry 99 Orders (Tests/Meds): ED MEDICATIONS Generic Name Dose Route Start Last Admin Trade Name Freq PRN Reason Stop Dose Admin Ceftriaxone Sodium 1 gm 09/09/24 09:24 09/09/24 09:26 Ceftriaxone 1gm Vial IM 09/09/24 09:25 1 gm ONCE ONE Administration Dexamethasone Sodium Phosphate 8 mg 09/09/24 09:24 09/09/24 09:26 Dexamethasone 4mg/Ml 1ml Vial IM 09/09/24 09:25 8 mg ONCE ONE Administration Lidocaine HCl 0 ml 09/09/24 09:24 09/09/24 09:26 Lidocaine 1% 5ml Pf Vial IM 09/09/24 09:25 2 ml ONCE ONE Administration Discontinued Medications Generic Name Dose Route Start Last Admin Trade Name Jude PRN Reason Stop Dose Admin Albuterol/Ipratropium 3 ml 09/09/24 08:55 09/09/24 08:59 Ipratropium/Albuterol 3 Ml Neb IH 09/09/24 08:56 3 ml ONCE ONE Administration ORDERS Category Date Time Status CXR 2 view (NOT portable) [XR chest 2V] Stat Exams 09/09/24 08:53 Taken Radiology Data #1: Image(s): Chest Image Reviewed: Yes I reviewed the patient's radiology image Preliminary Findings: No Infiltrates Seen
[2024-09-09 10:06] VITALS: BP 129/82; PULSE 109; RESP 26; TEMP 36.7
== END 2024-09-09 10:07 | disposition home or self-care (01) ==
PROVIDERS: Emergency Provider Nurse Practitioner Family
DX: J45.901 Unspecified asthma with (acute) exacerbation (principal); R07.1 Chest pain on breathing
CPT/HCPCS: 71046; 99212; G0381; J0696; J1100; J7620